=== PATIENT | female | born 1980 | race Caucasian/White ===

== ENCOUNTER → 2016-08-09 | Outpatient (CLI) | payer OTHER ==
[2013-03-27 06:47] VITALS: BP 125/71
--- NOTE | 2016-08-09 16:19 | RAD ---
HISTORY: Subacute neck pain and right arm radiculopathy Study: Three views cervical spine Comparison: None Findings: AP and lateral radiographs of the cervical spine demonstrate normal alignment from the craniocervica l junction to the level of T1. No prevertebral soft tissue swelling can be identified. The odontoi d appears intact. The lateral masses of C1 align with the body of C2. There is mild discogenic dege nerative disease at C6-7. IMPRESSION: Mild discogenic degenerative disease. Reported By:
== END ==
LOC: RAD 15:14
PROVIDERS: ATTEND Nurse Practitioner Family
DX: M50.323 Other cervical disc degeneration at C6-C7 level (principal)
CPT/HCPCS: 72040

== ENCOUNTER → 2016-08-15 | Outpatient (CLI) | payer OTHER ==
[2013-03-27 06:47] VITALS: BP 125/71
--- NOTE | 2016-08-16 10:24 | MRI ---
MRI cervical spine without contrast Indication: Neck pain with right arm radiculopathy Technique: Multiplanar, multi sequence imaging of the spine without IV contrast administration. Findings: Artifact from patient's dental hardware limits visualization of the craniocervical junctio n, posterior fossa and superior aspect of C2. Within the visualized cervical spine there is no spond ylolisthesis. There is moderate spondylosis and disk desiccation at C5-6. There is a large right par acentral disc extrusion at C5-6. The visualized cervical spine demonstrates no abnormal signal, thic kening or atrophy. There is no prevertebral or paraspinal soft tissue swelling or fluid collection. At C2-3 unremarkable At C3-4 mild disc osteophyte complex causes very mild spinal canal stenosis without neural foraminal narrowing. At C4-5 mild disc osteophyte complex causes very mild spinal canal without neural foraminal stenosis . At C5-6 large right paracentral disc extrusion and disc osteophyte complex causes mild to moderate s nas canal stenosis with severe right lateral recess compression . There is moderate right and no s ignificant left-sided neural foraminal stenosis at this level. At C6-7 unremarkable At C7-T1 unremarkable. Impression: 1. Large right paracentral disc extrusion at C5-6 causes mild spinal canal stenosis and moderate rig ht neural foraminal stenosis. There is severe compression of the right lateral recess which is likel y source of patient's right-sided radicular symptoms. 2. Refer to above for level by level description of discogenic 3 change, facet arthropathy and assoc iated spinal canal and neural foraminal stenosis. Reported By:
== END ==
LOC: RAD 14:08
PROVIDERS: ATTEND Internal Medicine
DX: R20.2 Paresthesia of skin (principal); M62.81 Muscle weakness (generalized); M54.5 Low back pain; M62.838 Other muscle spasm; M50.322 Other cervical disc degeneration at C5-C6 level
CPT/HCPCS: 72141

== ENCOUNTER 2016-09-06 09:09 | Inpatient (IN) | payer OTHER ==
[2016-09-06] MEDS ORDERED: NS 1000 ML 1,000 ML ONE ×2 (09:13→09:24)
[2016-09-06] MEDS ORDERED: NS 1000 ML 1,000 ML IV ONE (09:24)
[2016-09-06] MEDS ORDERED: DEMEROL INJ IVP ONE (09:28)
[2016-09-06] MEDS ORDERED: ZOFRAN INJ 4 MG VIAL IVP ONE (09:28)
[2016-09-06] MEDS ORDERED: PEPCID 20 MG IV PREMIX* 20 MG/50 ML BAG IV ONE ×2 (09:41→09:46)
[2016-09-06 09:44] VITALS: BMI 22.3
[2016-09-06] MEDS ORDERED: DEMEROL INJ ONE (09:52)
[2016-09-06] MEDS ORDERED: ZOFRAN INJ 4 MG VIAL ONE (09:52)
[2016-09-06 09:53] LABS: ABG BASE EXCESS -12.7 mmol/L (-2.0-2.0)
[2016-09-06 09:58] LABS: BASOPHILS % (AUTO) 0.3 % (0.2-1.0); EOSINOPHILS # (AUTO) 0.1 x10^3/uL (0.0-0.2); EOSINOPHILS % (AUTO) 0.4 % (0.9-2.9); HEMATOCRIT 45.7 % (36.0-47.0); HEMOGLOBIN 15.1 g/dL (12.0-16.0); LYMPHOCYTES % (AUTO) 7.5 % (21.0-51.0); MEAN CORPUSCULAR HEMOGLOBIN 28.5 pg (27.0-34.0); MEAN CORPUSCULAR HGB CONC 33.1 g/dL (33.0-35.0); MEAN CORPUSCULAR VOLUME 86.2 fL (80.0-100.0); MEAN PLATELET VOLUME 9.2 fL (7.4-11.0); MONOCYTES # (AUTO) 0.9 x10^3/uL (0.3-0.8); NEUTROPHILS # (AUTO) 11.1 x10^3/uL (2.2-4.8); NEUTROPHILS % (AUTO) 84.8 % (42.0-75.0); PLATELET COUNT 155 X10^3/uL (150.0-450.0); RED CELL DISTRIBUTION WIDTH 13.1 % (11.6-16.5)
[2016-09-06 10:14] LABS: ALANINE AMINOTRANSFERASE 25 Units/L (12-78); ALBUMIN 2.7 g/dL (3.4-5.0); ALKALINE PHOSPHATASE 47 Units/L (46-116); AMYLASE 8 Units/L (25-115); ASPARTATE AMINO TRANSFERASE 9 Units/L (15-37); BLOOD UREA NITROGEN 22 mg/dL (7-18); CALCIUM 7.2 mg/dL (8.5-10.1); COR CA(FOR HYPOALB) 8.2 mg/dL (8.5-10.1); COR NA(FOR HYPERGLY) 156 mmol/L (136-145); CREATININE 1.19 mg/dL (0.55-1.02); GLUCOSE 136 mg/dL (65-99); LIPASE 54 Units/L (73-393); TOTAL PROTEIN 5.5 g/dL (6.4-8.2); eGFR BLACK RACES > 60 (>60); eGFR NON BLACK RACES 55 (>60)
[2016-09-06 10:16] LABS: SODIUM 155 mmol/L (136-145)
[2016-09-06 10:17] LABS: CARBON DIOXIDE 13.7 mmol/L (21-32); CHLORIDE 124 mmol/L (98-107)
[2016-09-06] MEDS ORDERED: BUTT CREAM (COMPOUND) TOP PRN (10:25)
[2016-09-06] MEDS ORDERED: LOMOTIL ONE (10:54)
[2016-09-06] MEDS ORDERED: POTASSIUM CHLORIDE IV SCH ×2 (11:00)
[2016-09-06] MEDS ORDERED: NS 1000 ML 1,000 ML IV SCH (11:00)
[2016-09-06] MEDS ORDERED: LR IV SCH ×2 (11:00)
--- NOTE | 2016-09-06 11:19 | DR.DIARFEM ---
HPI - Time seen Time seen: 09:55 - PCP Primary Care Physician: [email or web address] - HPI Comment HPI Comment: PATIENT HAVING N/V/D FOR PAST 5 DAYS THAT IS WORSE TODAY. SHE IS DIZZY, WEAK AND FEEL SHE COULD PASS OUT. BP LOW IN ED. RELATIVE WITH DIARRHEA DISEASE RECENT. NOT HOLDING DOWN FLUID. - Complaint Chief Complaint Doctor Comments: ABDOMINAL PAIN, N/V/D TIMES 5 DAYS. HYPOTENSION NOTED IN ED. Chief Complaint:: patient stated she has been having vomiting and diarrhea for 5 days - Nurses notes reviewed Nurses Notes Review: Yes - Source History Provided: Patient - Mode of Arrival Mode of Arrival: Ambulatory - Timing Onset of Chief Complaint: 09/01/16 Came on: Suddenly - Duration Duration: Constant Duration: Days - Quality Quality of Diarrhea: Watery - Context Onset: Spontaneous Recent: Contact Exposure. denies: Travel, Antibiotic use, Laxative use, Possible spoiled food, Shellfish Diarrhea history of: None - Associated signs and symptoms Associated Signs and Symptoms: Nausea, Diarrhea, Vomiting, Abdominal Pain. denies: Dysuria (DECREASE URINE OUTPUT), Fever - If abdominal pain present Quality: Cramping Location of Abdominal Pain: Diffuse PMH - PMH Past Medical History: No Past Surgical History: Yes Surgical History: , Tonsillectomy - Family History History of Family Medical Conditions: No - Social History Does patient currently use any type of tobacco product: No Have you used tobacco products in the last 12 months: No Type of Tobacco Use: None Does any household member use tobacco: No Alcohol Use: None Do you use any recreational Drugs:: No Lives With: Family Lives Where: Home - infectious screening In the last 2 months have you had wt loss of >10#?: NO Have you had fever, night sweats or hemotysis?: No Have you traveled outside the country in the last 6 months?: No Isolation: Standard ROS - Review of Systems Constitutional: Weakness, Fatigue. negative: Chills, Diaphoresis, Fever, Loss of Appetite Eyes: No Symptoms Reported. negative: Eye Pain, Discharge ENTM: negative: Ear Pain, Nose Discharge, Nose Congestion, Throat Pain Respiratoy: negative: Productive Cough, Non-Productive Cough, Short of Breath, Wheezing, Hemoptysis Cardiovascular: Palpitations. negative: Chest Pain, Edema, Syncope Gastrointestinal/Abdominal: Abdominal Pain, Diarrhea, Nausea, Vomiting. negative: Constipation Genitourinary: Other (DECRESASE URINE OUTPUT.). negative: Dysuria, Frequency, Hematuria Neurological: Weakness, Dizziness. negative: Headache Musculoskeletal: Muscle Pain Integumentary: Dryness Hematologic/Lymphatic: No Symptoms Reported Endocrine: No Symptoms Reported All Other Systems: Reviewed and Negative PE - Vital Signs Vitals: Temperature 98.6 F Pulse Rate 118 Respiratory Rate 18 Blood Pressure [Right Arm] 117/69 Blood Pressure 114/74 O2 Sat by Pulse Oximetry 100 - Constitutional Limitations: No Limitations General Appearance: Alert - Head Head Exam: Normal Inspection - Eyes Eye exam: Normal Appearance - ENT ENT Exam: Normal External Ear Exam, Mucous Membranes Dry - Neck Neck Exam: Trachea Midline - Chest Chest Inspection: Symmetric Chest Wall Rise - Respiratory Respiratory Exam: Normal Lung Sounds Bilat Respiratory Exam: Bilateral Clear to Auscultation - Cardiovascular Cardiovascular Exam: Normal Rhythm, Tachycardia, Normal Heart Sounds - Abdominal Exam Abdominal Exam: Normal Bowel Sounds, Soft, Tenderness Abdominal Tenderness: Diffuse, Moderate - Rectal Stool Characteristics: Liquid (WATERY), Brown - Genitourinary External Exam: Female: Deferred : Speculum Exam (Female): Deferred : Bimanual Exam (female): Deferred - Extremeties Extremities Exam: Normal Inspection - Back Back Exam: Normal Inspection - Neurologic Neurological Exam: Alert, Oriented X3 - Psychiatric Psychiatric Exam: Normal Affect, Normal Mood - Skin Skin Exam: Dry MDM - Additional Information Additional Information Obtained From: Family - Differential Diagnosis Differential Diagnosis: Diarrhea Bacterial, Diarrhea Viral, Diverticular disease , Gastroenteritis, Other (comments) (GASTROENTERITIS) Course - Treatment Treatment: SEE ORDERS. - Consultation Consultation Comments: DISCUSS PATIENT WITH DR. FARRIS. HE WILL ADMIT PATIENT. - Education/Counseling Education/Counseling: Patient, Family, Education Educated On: Treatment, Diagnosis, Needs for Follow Up ROR - Labs Reviewed Laboratory Results Reviewed?: Yes Result Diagrams: 09/08/16 05:24 09/08/16 05:24 Laboratory: 09/06/16 09:26 Stool - Final WBC 13.0 X10^3/uL (3.6-10.0) H 09/06/16 09:50 RBC 5.30 X10^6/uL (3.5-5.4) 09/06/16 09:50 Hgb 15.1 g/dL (12.0-16.0) 09/06/16 09:50 Hct 45.7 % (36.0-47.0) 09/06/16 09:50 MCV 86.2 fL (80.0-100.0) 09/06/16 09:50 MCH 28.5 pg (27.0-34.0) 09/06/16 09:50 MCHC 33.1 g/dL (33.0-35.0) 09/06/16 09:50 RDW 13.1 % (11.6-16.5) 09/06/16 09:50 Plt Count 155 X10^3/uL (150.0-450.0) 09/06/16 09:50 MPV 9.2 fL (7.4-11.0) 09/06/16 09:50 Neut % 84.8 % (42.0-75.0) H 09/06/16 09:50 Lymph % 7.5 % (21.0-51.0) L 09/06/16 09:50 Tyrrell % 7.0 % (0.0-13.0) 09/06/16 09:50 Eos % 0.4 % (0.9-2.9) L 09/06/16 09:50 Baso % 0.3 % (0.2-1.0) 09/06/16 09:50 Neut # 11.1 x10^3/uL (2.2-4.8) H 09/06/16 09:50 Lymph # 1.0 X10^3/uL (1.3-2.9) L 09/06/16 09:50 Tyrrell # 0.9 x10^3/uL (0.3-0.8) H 09/06/16 09:50 Eos # 0.1 x10^3/uL (0.0-0.2) 09/06/16 09:50 Baso # 0.0 X10^3/uL (0.0-0.1) 09/06/16 09:50 Absolute Nucleated RBC 0.1 /100WBC 09/06/16 09:50 INR Target Range - 09/06/16 09:50 INR 1.27 (0.8-1.3) 09/06/16 09:50 PTT 24.8 SECONDS (22.9-36.5) 09/06/16 09:50 PTT Comment - 09/06/16 09:50 Sample Site Rba 09/06/16 09:51 ABG pH 7.260 (7.35-7.45) L 09/06/16 09:51 ABG pCO2 29.0 mmHg (35.0-45.0) L 09/06/16 09:51 ABG pO2 126.0 mmHg (80.0-100.0) H 09/06/16 09:51 ABG HCO3 13.0 mmol/L (22-26) L* 09/06/16 09:51 ABG O2 Saturation 98.0 % (90-100) 09/06/16 09:51 ABG Base Excess -12.7 mmol/L (-2.0-2.0) L 09/06/16 09:51 James Test Na 09/06/16 09:51 A-a Gradient -13.0 mmHg 09/06/16 09:51 FiO2 21.000 09/06/16 09:51 Blood Gas Comments Merna well cs 09/06/16 09:51 Sodium 155 mmol/L (136-145) H* 09/06/16 09:50 Corrected Sodium 156 mmol/L (136-145) H 09/06/16 09:50 Potassium 2.9 mmol/L (3.5-5.1) L* 09/06/16 09:50 Chloride 124 mmol/L (98-107) H* 09/06/16 09:50 Carbon Dioxide 13.7 mmol/L (21-32) L* 09/06/16 09:50 BUN 22 mg/dL (7-18) H 09/06/16 09:50 Creatinine 1.19 mg/dL (0.55-1.02) H 09/06/16 09:50 Est GFR (MDRD) Af Amer > 60 (>60) 09/06/16 09:50 Est GFR (MDRD) Non-Af 55 (>60) L 09/06/16 09:50 Glucose 136 mg/dL (65-99) H 09/06/16 09:50 Calcium 7.2 mg/dL (8.5-10.1) L 09/06/16 09:50 Corrected Calcium 8.2 mg/dL (8.5-10.1) L 09/06/16 09:50 Total Bilirubin 0.20 mg/dL (0.2-1.0) 09/06/16 09:50 AST 9 Units/L (15-37) L 09/06/16 09:50 ALT 25 Units/L (12-78) 09/06/16 09:50 Alkaline Phosphatase 47 Units/L (46-116) 09/06/16 09:50 Total Protein 5.5 g/dL (6.4-8.2) L 09/06/16 09:50 Albumin 2.7 g/dL (3.4-5.0) L 09/06/16 09:50 Globulin 2.8 g/dL (2.5-4.5) 09/06/16 09:50 Albumin/Globulin Ratio 1.0 Ratio (1.1-2.1) L 09/06/16 09:50 Amylase 8 Units/L (25-115) L 09/06/16 09:50 Lipase 54 Units/L (73-393) L 09/06/16 09:50 Stool Description 60g brwon liquid 09/06/16 09:26 Stl Occult Blood (IFOB) Negative (NEGATIVE) 09/06/16 09:26 Stool for White Cells No wbc's seen (None) 09/06/16 09:26 Stl C. diff Tox B Gene Negative (NEGATIVE) 09/06/16 09:26 Stl C. diff [id number] Negative (NEGATIVE) 09/06/16 09:26 - XRAY XRAY Interpreted by: Radiologist XRAY Findings: REPORT DISCUSS WITH PATIENT. - Diagnosis Discharge Problem: Dehydration, Gastroenteritis, Hypokalemia Hypotension Qualifiers: Hypotension type: unspecified hypotension type Qualified Code(s): I95.9 - Hypotension, unspecified - Discharge Plan Disposition: 01 HOME, SELF-CARE Condition: Stable - Follow ups/Referrals - Instructions
[2016-09-06 11:28] LABS: CRYPTOSPORIDIUM PARVUM ANTIGEN NEGATIVE (NEGATIVE); GIARDIA LAMBLIA ANTIGEN NEGATIVE (NEGATIVE)
--- NOTE | 2016-09-06 11:39 | CT ---
CT abdomen and pelvis without contrast Indication: Abdominal pain with nausea vomiting and diarrhea Comparison: none available Technique: Multiple axial images of the abdomen and pelvis were obtained from the lung bases to the pubic symph ysis without the administration of IV contrast. Coronal and sagittal images were also provided. Radiation dose reduction techniques were performed utilizing adjustment for MA/kVP based on patient body size. Findings: The visualized portions of the lung bases are unremarkable. The bony structures are grossly intact. Given the limitations of lack of IV contrast administration the liver, gallbladder, spleen, pancreas , and adrenal glands are unremarkable in their CT appearance. There are multiple punctate stones are noted within both kidneys, no renal mass or evidence of hydro nephrosis. There is diffuse fluid distention of the stomach, small bowel, colon and rectum. There is no decompr ession of the bowel. No free fluid or bowel wall thickening. The appendix is normal. Uterus demonstr ates an IUD in expected position within a retroflexed uterus. Abdominal aorta is normal in caliber. There is a small fat containing periumbilical hernia. Review of bone windows demonstrates no acute o sseous abnormality. Impression: 1.Fluid distension of the stomach, small bowel, colon and rectum consistent with either an acute gas troenterocolitis or generalized adynamic ileus. No evidence of obstruction. 2. Multiple punctate bilateral nonobstructing nephrolithiasis. 3. Incidental findings as described above. Reported By:
[2016-09-06] MEDS ORDERED: BENTYL I.M. INJ 10 MG IM PRN (11:50)
[2016-09-06] MEDS: PHENERGAN INJ 25 MG IV PRN ×2 (13:30→19:37)
[2016-09-06] MEDS: LOMOTIL PO PRN ×2 (15:40→23:03)
[2016-09-06 15:46] LABS: BLOOD UREA NITROGEN 17 mg/dL (7-18); CALCIUM 8.3 mg/dL (8.5-10.1); CARBON DIOXIDE 16.2 mmol/L (21-32); COR NA(FOR HYPERGLY) 153 mmol/L (136-145); CREATININE 1.04 mg/dL (0.55-1.02); GLUCOSE 116 mg/dL (65-99); eGFR BLACK RACES > 60 (>60); eGFR NON BLACK RACES > 60 (>60)
[2016-09-06 15:48] LABS: SODIUM 153 mmol/L (136-145)
[2016-09-06 15:49] LABS: CHLORIDE 121 mmol/L (98-107)
[2016-09-06] MEDS ORDERED: RESTORIL CAP 15 MG PO PRN (19:12)
[2016-09-06 19:25] LABS: BLOOD UREA NITROGEN 12 mg/dL (7-18); CALCIUM 8.5 mg/dL (8.5-10.1); COR NA(FOR HYPERGLY) 150 mmol/L (136-145); CREATININE 1.04 mg/dL (0.55-1.02); GLUCOSE 118 mg/dL (65-99); eGFR BLACK RACES > 60 (>60); eGFR NON BLACK RACES > 60 (>60)
[2016-09-06 19:28] LABS: CHLORIDE 118 mmol/L (98-107); SODIUM 150 mmol/L (136-145)
[2016-09-06 19:29] LABS: BILIRUBIN,URINE NEGATIVE (NEGATIVE); BLOOD/HEMOGLOBIN,URINE 2+ (NEGATIVE); GLUCOSE, URINE NEGATIVE (NEGATIVE); KETONES,URINE NEGATIVE (NEGATIVE); LEUKOCYTE ESTERASE ,URINE NEGATIVE (NEGATIVE); NITRITES,URINE NEGATIVE (NEGATIVE); PROTEIN,URINE 1+ (NEGATIVE); UROBILINOGEN,URINE NORMAL (NORMAL)
[2016-09-06] MEDS: D5 1/2 NS 1000 ML 1,000 ML IV SCH (19:36)
[2016-09-06] MEDS: DEMEROL INJ IVP PRN (19:37)
[2016-09-06 19:38] LABS: APPEARANCE,URINE CLEAR (CLEAR); BACTERIA,URINE TRACE /HPF (NEGATIVE); COLOR,URINE YELLOW (YELLOW); RBC,URINE 0-3 /HPF (NEGATIVE); SQUAMOUS EPITHELIAL CELL,UR FEW /HPF (NEGATIVE)
[2016-09-06 22:52] LABS: BLOOD UREA NITROGEN 10 mg/dL (7-18); CALCIUM 8.6 mg/dL (8.5-10.1); CREATININE 0.98 mg/dL (0.55-1.02); GLUCOSE 109 mg/dL (65-99); eGFR BLACK RACES > 60 (>60); eGFR NON BLACK RACES > 60 (>60)
[2016-09-06 23:01] LABS: CHLORIDE 117 mmol/L (98-107); SODIUM 152 mmol/L (136-145)
[2016-09-07] MEDS: AMBIEN PO PRN ×2 (02:01→21:02)
[2016-09-07] MEDS: D5 1/2 NS 1000 ML 1,000 ML IV SCH ×2 (03:39→06:17)
[2016-09-07] MEDS: ZOFRAN INJ 4 MG VIAL IVP PRN ×2 (07:41→17:40)
[2016-09-07 08:12] LABS: BASOPHILS % (AUTO) 0.4 % (0.2-1.0); EOSINOPHILS # (AUTO) 0.1 x10^3/uL (0.0-0.2); EOSINOPHILS % (AUTO) 0.6 % (0.9-2.9); HEMATOCRIT 41.4 % (36.0-47.0); HEMOGLOBIN 13.8 g/dL (12.0-16.0); LYMPHOCYTES # (AUTO) 1.6 X10^3/uL (1.3-2.9); LYMPHOCYTES % (AUTO) 13.8 % (21.0-51.0); MEAN CORPUSCULAR HEMOGLOBIN 28.6 pg (27.0-34.0); MEAN CORPUSCULAR HGB CONC 33.2 g/dL (33.0-35.0); MEAN CORPUSCULAR VOLUME 86.1 fL (80.0-100.0); MEAN PLATELET VOLUME 8.9 fL (7.4-11.0); MONOCYTES # (AUTO) 1.1 x10^3/uL (0.3-0.8); MONOCYTES % (AUTO) 9.5 % (0.0-13.0); NEUTROPHILS % (AUTO) 75.7 % (42.0-75.0); PLATELET COUNT 162 X10^3/uL (150.0-450.0); RED BLOOD COUNT 4.81 X10^6/uL (3.5-5.4); RED CELL DISTRIBUTION WIDTH 13.1 % (11.6-16.5); WHITE BLOOD COUNT 11.8 X10^3/uL (3.6-10.0)
[2016-09-07 08:21] LABS: ALANINE AMINOTRANSFERASE 34 Units/L (12-78); ALKALINE PHOSPHATASE 45 Units/L (46-116); ASPARTATE AMINO TRANSFERASE 21 Units/L (15-37); BLOOD UREA NITROGEN 8 mg/dL (7-18); CALCIUM 8.2 mg/dL (8.5-10.1); CARBON DIOXIDE 21.1 mmol/L (21-32); CHLORIDE 110 mmol/L (98-107); CREATININE 0.91 mg/dL (0.55-1.02); GLUCOSE 68 mg/dL (65-99); SODIUM 143 mmol/L (136-145); TOTAL PROTEIN 5.8 g/dL (6.4-8.2); eGFR BLACK RACES > 60 (>60); eGFR NON BLACK RACES > 60 (>60)
--- NOTE | 2016-09-07 09:19 | RAD ---
HISTORY: Wheezing, cough Study: Single view chest Comparison: None Findings: The lungs are clear without consolidation, effusion or pneumothorax. The cardiac and mediastinal co ntours are within normal limits. The soft tissues are unremarkable. IMPRESSION: 1. No acute cardiopulmonary abnormality. Reported By:
[2016-09-07] MEDS: LIBRAX PO PRN ×2 (10:06→21:42)
[2016-09-07] MEDS: DEMEROL INJ IVP PRN ×2 (10:07→17:40)
[2016-09-07] MEDS: PROTONIX INJ 40 MG VIAL IVP SCH (10:07)
[2016-09-07] MEDS: CIPRO IV 400 MG PREMIX* 400 MG/200 ML IV.SOLN. IV SCH ×2 (10:08→21:01)
[2016-09-07] MEDS ORDERED: D5 1/2 NS 1000 ML 1,000 ML IV SCH (11:00)
[2016-09-07] MEDS ORDERED: PHARMACY CONSULT - TPN XX SCH (11:00)
[2016-09-07] MEDS: K-LYTE EFFERVESCENT PO SCH ×2 (11:50→12:27)
[2016-09-07] MEDS: PROCALAMINE 3 % 1,000 ML IV SCH (11:50)
--- NOTE | 2016-09-07 12:57 | DR.H&P ---
H&P - History & Physical for Day of: H&P Date: 09/06/16 - Chief Complaint Chief Complaint: NVD - Allergies Allergies/Adverse Reactions: Allergies Allergy/AdvReac Type Severity Reaction Status Date / Time No Known Drug Allergy Allergy Verified 03/23/13 20:51 - History of Present Illness History of Present Illness: PATIENT IS A 35-YEAR-OLD WHITE FEMALE WHO WAS ADMITTED FROM THE EMERGENCY ROOM WITH SEVERE DEHYDRATION AND HYPOKALEMIA AFTER POSSIBLE VIRAL GASTROENTERITIS. pATIENT HAD A ct SCAN OF THE ABDOMEN AND PELVIS ON ADMISSION WHICH CONFIRMED DIAGNOSIS. pATIENT ADMITTED FOR AGGRESSIVE iv HYDRATION, ANTIEMETICS FOR NAUSEA AND VOMITING AND STOOL STUDIES. pLANNED REPEAT A.M. LABS - Past Medical History Past Medical History: Arthritis - Past Surgical History Surgical History: , Tonsillectomy, Other - Family History Family Medical History: Diabetes Mellitus, Cancer, [place], Coronary Artery Disease, Hypertension - Social History Does patient currently use any type of tobacco product: No Have you used tobacco products in the last 12 months: No Type of Tobacco Use: None Does any household member use tobacco: No Alcohol Use: None Drug Use: None - Review of Systems Constitutional: Chills, Weakness, Malaise Eyes: No Symptoms Reported ENT: No Symptoms Reported Respiratory: SOB with Excertion Cardiovascular: Light Headedness Gastrointestinal: Nausea, Vomiting, Abdominal Pain, Diarrhea Genitourinary: No Symptoms Reported Musculoskeletal: Back Pain, Leg Pain, Neck Pain Skin: No Symptoms Reported Neurological: Weakness - Physical Exam Vital Signs: Temperature 98.1 F Pulse Rate [Right Brachial] 83 Respiratory Rate 19 Blood Pressure [Right Arm] 121/74 O2 Sat by Pulse Oximetry 100 Oriented: Normal Eyes: Normal Ear: Normal Nose: Normal Throat: Dry Respiratory: RLL Diminished Cardiovascular: Bradycardia : Normal Auscultation: Bowel Sounds: Increased Tenderness: Diffuse Skin: Decreased Turgur Musculoskeletal: Back:Thoracic, Back:Lumbar, Tender (C SPINE) Psychiatric: Anxiety Speech Pattern: Clear, Appropriate - Assessment/Plan (1) Dehydration Status: Acute Plan: ADMIT, IV HYDRATION. STOOL STUDIES, REPEAT AM LABS (2) Gastroenteritis Status: Acute (3) Hypotension Qualifiers: Hypotension type: H Trimester: T Status: Acute (4) Herniation of intervertebral disc at C5-C6 level Status: Chronic
--- NOTE | 2016-09-07 13:00 | PCM.PROG ---
Progress Note - Progress Note for Day of Date: 09/07/16 - Subjective Subjective: patient is a 35-year-old white female who was admitted one day ago with viral gastroenteritis and severe dehydration. Patient has slight improved and vomiting and diarrhea however patient has had limited by mouth intake. Patient's potassium this morning continued to be low at 2.8. Plan to follow potassium replacement protocol. Repeat a.m. labs. Start on Cipro 400 mg IV every 12, stool culture pending, flu swab and chest x-ray due to diminished breath sounds. - Past Medical Family Social History Past Med/Fam/Surg Hx: No changes since H&P Allergies: Allergies No Known Drug Allergy Allergy (Verified 03/23/13 20:51) - Review of Systems ROS: No change since H&P - Vital Signs and I&O's Vital Signs: Temperature 98.1 F Pulse Rate [Right Brachial] 83 Respiratory Rate 19 Blood Pressure [Right Arm] 121/74 O2 Sat by Pulse Oximetry 100 Intake and Output: Intake & Output 09/05/16 09/06/16 09/07/16 09/08/16 11:59 11:59 11:59 11:59 Intake Total 4060 Balance 4060 - Physical Exam Oriented: Normal Eyes: Normal Ear: Normal Nose: Normal Throat: Dry Respiratory: Diminished Cardiovascular: Normal : Normal Auscultation: Bowel Sounds: Increased Tenderness: Diffuse Skin: Decreased Turgur Musculoskeletal: Back:Thoracic, Back:Lumbar, Tender (C SPINE) Psychiatric: Anxiety Speech Pattern: Clear, Appropriate - Laboratory and Diagnostics Result Diagrams: 09/07/16 08:00 09/07/16 08:00 Labs: Laboratory WBC 11.8 X10^3/uL (3.6-10.0) H 09/07/16 08:00 RBC 4.81 X10^6/uL (3.5-5.4) 09/07/16 08:00 Hgb 13.8 g/dL (12.0-16.0) 09/07/16 08:00 Hct 41.4 % (36.0-47.0) 09/07/16 08:00 MCV 86.1 fL (80.0-100.0) 09/07/16 08:00 MCH 28.6 pg (27.0-34.0) 09/07/16 08:00 MCHC 33.2 g/dL (33.0-35.0) 09/07/16 08:00 RDW 13.1 % (11.6-16.5) 09/07/16 08:00 Plt Count 162 X10^3/uL (150.0-450.0) 09/07/16 08:00 MPV 8.9 fL (7.4-11.0) 09/07/16 08:00 Neut % 75.7 % (42.0-75.0) H 09/07/16 08:00 Lymph % 13.8 % (21.0-51.0) L 09/07/16 08:00 Rogers % 9.5 % (0.0-13.0) 09/07/16 08:00 Eos % 0.6 % (0.9-2.9) L 09/07/16 08:00 Baso % 0.4 % (0.2-1.0) 09/07/16 08:00 Neut # 9.0 x10^3/uL (2.2-4.8) H 09/07/16 08:00 Lymph # 1.6 X10^3/uL (1.3-2.9) 09/07/16 08:00 Rogers # 1.1 x10^3/uL (0.3-0.8) H 09/07/16 08:00 Eos # 0.1 x10^3/uL (0.0-0.2) 09/07/16 08:00 Baso # 0.0 X10^3/uL (0.0-0.1) 09/07/16 08:00 Absolute Nucleated RBC 0.0 /100WBC 09/07/16 08:00 INR Target Range - 09/06/16 09:50 INR 1.27 (0.8-1.3) 09/06/16 09:50 PTT 24.8 SECONDS (22.9-36.5) 09/06/16 09:50 PTT Comment - 09/06/16 09:50 Sample Site Rba 09/06/16 09:51 ABG pH 7.260 (7.35-7.45) L 09/06/16 09:51 ABG pCO2 29.0 mmHg (35.0-45.0) L 09/06/16 09:51 ABG pO2 126.0 mmHg (80.0-100.0) H 09/06/16 09:51 ABG HCO3 13.0 mmol/L (22-26) L* 09/06/16 09:51 ABG O2 Saturation 98.0 % (90-100) 09/06/16 09:51 ABG Base Excess -12.7 mmol/L (-2.0-2.0) L 09/06/16 09:51 James Test Na 09/06/16 09:51 A-a Gradient -13.0 mmHg 09/06/16 09:51 FiO2 21.000 09/06/16 09:51 Blood Gas Comments Merna well cs 09/06/16 09:51 Sodium 143 mmol/L (136-145) 09/07/16 08:00 Corrected Sodium TNP 09/07/16 08:00 Potassium 2.8 mmol/L (3.5-5.1) L* 09/07/16 08:00 Chloride 110 mmol/L (98-107) H 09/07/16 08:00 Carbon Dioxide 21.1 mmol/L (21-32) 09/07/16 08:00 BUN 8 mg/dL (7-18) 09/07/16 08:00 Creatinine 0.91 mg/dL (0.55-1.02) 09/07/16 08:00 Est GFR (MDRD) Af Amer > 60 (>60) 09/07/16 08:00 Est GFR (MDRD) Non-Af > 60 (>60) 09/07/16 08:00 Glucose 68 mg/dL (65-99) 09/07/16 08:00 Lactic Acid 3.8 mmol/L (0.4-2.0) H 09/06/16 15:20 Calcium 8.2 mg/dL (8.5-10.1) L 09/07/16 08:00 Corrected Calcium 9.0 mg/dL (8.5-10.1) 09/07/16 08:00 Total Bilirubin 0.40 mg/dL (0.2-1.0) 09/07/16 08:00 AST 21 Units/L (15-37) 09/07/16 08:00 ALT 34 Units/L (12-78) 09/07/16 08:00 Alkaline Phosphatase 45 Units/L (46-116) L 09/07/16 08:00 Total Protein 5.8 g/dL (6.4-8.2) L 09/07/16 08:00 Albumin 3.0 g/dL (3.4-5.0) L 09/07/16 08:00 Globulin 2.8 g/dL (2.5-4.5) 09/07/16 08:00 Albumin/Globulin Ratio 1.1 Ratio (1.1-2.1) 09/07/16 08:00 Amylase 8 Units/L (25-115) L 09/06/16 09:50 Lipase 54 Units/L (73-393) L 09/06/16 09:50 Specimen Type Clean catch urine 09/06/16 19:19 Urine Color Yellow (YELLOW) 09/06/16 19:19 Urine Appearance Clear (CLEAR) 09/06/16 19:19 Urine pH 5.0 (5.0 - 8.0) 09/06/16 19:19 Ur Specific [facility] 1.025 (1.000-1.030) 09/06/16 19:19 Urine Protein 1+ (NEGATIVE) 09/06/16 19:19 Urine Glucose (UA) Negative (NEGATIVE) 09/06/16 19:19 Urine Ketones Negative (NEGATIVE) 09/06/16 19:19 Urine Occult Blood 2+ (NEGATIVE) 09/06/16 19:19 Urine Nitrite Negative (NEGATIVE) 09/06/16 19:19 Urine Bilirubin Negative (NEGATIVE) 09/06/16 19:19 Urine Urobilinogen Normal (NORMAL) 09/06/16 19:19 Ur Leukocyte Esterase Negative (NEGATIVE) 09/06/16 19:19 Urine RBC 0-3 /HPF (NEGATIVE) 09/06/16 19:19 Urine WBC 0-1 /HPF (NEGATIVE) 09/06/16 19:19 Ur Squamous Epith Cells Few /HPF (NEGATIVE) 09/06/16 19:19 Urine Bacteria Trace /HPF (NEGATIVE) 09/06/16 19:19 Ur Culture Indicated? No/not indicated 09/06/16 19:19 Stool Description 60g brwon liquid 09/06/16 09:26 Stl Occult Blood (IFOB) Negative (NEGATIVE) 09/06/16 09:26 Stool for White Cells No wbc's seen (None) 09/06/16 09:26 Stl C. diff Tox B Gene Negative (NEGATIVE) 09/06/16 09:26 Stl C. diff [id number] Negative (NEGATIVE) 09/06/16 09:26 Cryptosporid parvum Ag Negative (NEGATIVE) 09/06/16 09:26 E. histolytica Antigen Negative (NEGATIVE) 09/06/16 09:26 Giardia lamblia Ag Negative (NEGATIVE) 09/06/16 09:26 Influenza A (H1N1) PCR Not detected (NOT DETECT) 09/07/16 09:00 Influenza Type A (PCR) Negative (NEGATIVE) 09/07/16 09:00 Influenza Type B (PCR) Negative (NEGATIVE) 09/07/16 09:00 - Plan (1) Dehydration Status: Acute Plan: IV HYDRATION, potassim replacement. STOOL STUDIES, REPEAT AM LABS (2) Gastroenteritis Status: Acute Plan: CIPRO 400MG IV Q 12, STOOL CULTURES PENDING. FLU SWAB, PPI, LIBRAX PO. CLEAR LIQUIDS, ADVANCE TO BLAND TOLERATED (3) Hypotension Status: Acute Qualifiers: Hypotension type: H Trimester: T Plan: stable, continue to monitor (4) Herniation of intervertebral disc at C5-C6 level Status: Chronic
[2016-09-07] MEDS: PHENERGAN INJ 25 MG IV PRN ×2 (14:33→21:02)
[2016-09-07] MEDS ORDERED: D5 1/2 NS + KCL 20 MEQ/L 1,000 ML IV SCH (15:00)
[2016-09-07] MEDS: D5 1/2 NS + KCL 20 MEQ/L 1,000 ML IV SCH (16:38)
[2016-09-08] MEDS: K-LYTE EFFERVESCENT PO SCH ×3 (00:49→23:17)
[2016-09-08] MEDS: PROCALAMINE 3 % 1,000 ML IV SCH ×4 (00:50→23:19)
[2016-09-08] MEDS: DEMEROL INJ IVP PRN ×3 (03:24→21:14)
[2016-09-08] MEDS: PHENERGAN INJ 25 MG IV PRN ×4 (03:25→23:48)
[2016-09-08] MEDS: D5 1/2 NS + KCL 20 MEQ/L 1,000 ML IV SCH ×3 (05:48→17:20)
[2016-09-08 06:29] LABS: BASOPHILS % (AUTO) 0.3 % (0.2-1.0); EOSINOPHILS # (AUTO) 0.2 x10^3/uL (0.0-0.2); EOSINOPHILS % (AUTO) 2.1 % (0.9-2.9); HEMATOCRIT 37.7 % (36.0-47.0); LYMPHOCYTES # (AUTO) 2.6 X10^3/uL (1.3-2.9); LYMPHOCYTES % (AUTO) 25.9 % (21.0-51.0); MEAN CORPUSCULAR HEMOGLOBIN 29.1 pg (27.0-34.0); MEAN CORPUSCULAR HGB CONC 34.6 g/dL (33.0-35.0); MEAN CORPUSCULAR VOLUME 84.3 fL (80.0-100.0); MEAN PLATELET VOLUME 9.4 fL (7.4-11.0); MONOCYTES # (AUTO) 0.9 x10^3/uL (0.3-0.8); MONOCYTES % (AUTO) 8.7 % (0.0-13.0); NEUTROPHILS # (AUTO) 6.2 x10^3/uL (2.2-4.8); PLATELET COUNT 146 X10^3/uL (150.0-450.0); RED BLOOD COUNT 4.47 X10^6/uL (3.5-5.4); WHITE BLOOD COUNT 9.9 X10^3/uL (3.6-10.0)
[2016-09-08 06:30] LABS: ALANINE AMINOTRANSFERASE 44 Units/L (12-78); ALBUMIN 2.4 g/dL (3.4-5.0); ALKALINE PHOSPHATASE 44 Units/L (46-116); ASPARTATE AMINO TRANSFERASE 20 Units/L (15-37); BLOOD UREA NITROGEN 10 mg/dL (7-18); CALCIUM 7.8 mg/dL (8.5-10.1); CARBON DIOXIDE 25.2 mmol/L (21-32); CHLORIDE 107 mmol/L (98-107); COR CA(FOR HYPOALB) 9.1 mg/dL (8.5-10.1); CREATININE 0.63 mg/dL (0.55-1.02); GLUCOSE 90 mg/dL (65-99); SODIUM 141 mmol/L (136-145); TOTAL PROTEIN 4.9 g/dL (6.4-8.2); eGFR BLACK RACES > 60 (>60); eGFR NON BLACK RACES > 60 (>60)
--- NOTE | 2016-09-08 06:54 | US ---
Limited abdominal ultrasound Indication: Food intolerance, nausea, vomiting, diarrhea. Comparison: None Technique: Sonographic images of the abdomen were obtained per protocol. Findings: There is no cholelithiasis, gallbladder distention, wall thickening, or pericholecystic fl uid. No biliary dilation is observed; the common duct measures 3 mm in diameter. The visualized live r, right kidney, and pancreas were unremarkable. Impression: Unremarkable right upper quadrant ultrasound. Reported By:
[2016-09-08] MEDS: LIBRAX PO PRN (07:45)
[2016-09-08] MEDS: PROTONIX INJ 40 MG VIAL IVP SCH (08:28)
[2016-09-08] MEDS: ZOFRAN INJ 4 MG VIAL IVP PRN (08:28)
[2016-09-08] MEDS: CIPRO IV 400 MG PREMIX* 400 MG/200 ML IV.SOLN. IV SCH ×2 (08:29→21:12)
[2016-09-08] MEDS: MYCELEX TROCHE MT SCH ×4 (08:29→21:12)
[2016-09-08] MEDS ORDERED: ZOFRAN INJ 4 MG VIAL 16 MG, ATIVAN INJ 2 MG VIAL 1 MG, DECADRON INJ 10 MG in NS 50 ML I... IV NR (10:00)
[2016-09-08 10:07] LABS: AMYLASE 19 Units/L (25-115); LIPASE 81 Units/L (73-393)
[2016-09-08] MEDS: REGLAN INJ 10 MG VIAL IVP SCH ×4 (10:39→21:13)
[2016-09-08] MEDS: PEPCID 20 MG IV PREMIX* 20 MG/50 ML BAG IV SCH ×2 (10:39→21:12)
[2016-09-08] MEDS: ZOFRAN INJ 4 MG VIAL 16 MG, ATIVAN INJ 2 MG VIAL 1 MG, DECADRON INJ 10 MG in NS 50 ML I... IV PRN ×2 (12:47→22:28)
--- NOTE | 2016-09-08 15:20 | PCM.PROG ---
Progress Note - Progress Note for Day of Date: 09/08/16 - Subjective Subjective: patient is a 35-year-old white female who was admitted one day ago with viral gastroenteritis and severe dehydration. Patient has slight improved and vomiting and diarrhea however patient has had limited by mouth intake. Patient's potassium this morning continued to be low at 3.1 Plan to follow potassium replacement protocol. Repeat a.m. labs. on Cipro 400 mg IV every 12 , REPEAT AM LABS - Past Medical Family Social History Past Med/Fam/Surg Hx: No changes since H&P Allergies: Allergies No Known Drug Allergy Allergy (Verified 03/23/13 20:51) - Review of Systems ROS: No change since H&P - Vital Signs and I&O's Vital Signs: Temperature 97.9 F Pulse Rate [Right Brachial] 113 Respiratory Rate 18 Blood Pressure [Right Arm] 128/64 O2 Sat by Pulse Oximetry 98 Intake and Output: Intake & Output 09/06/16 09/07/16 09/08/16 09/09/16 11:59 11:59 11:59 11:59 Intake Total 5070 3310 Balance 5070 3310 - Physical Exam Oriented: Normal Eyes: Normal Ear: Normal Nose: Normal Throat: Dry Respiratory: Diminished Cardiovascular: Normal : Normal Auscultation: Bowel Sounds: Increased Tenderness: Diffuse Skin: Decreased Turgur Musculoskeletal: Back:Thoracic, Back:Lumbar, Tender (C SPINE) Psychiatric: Anxiety Speech Pattern: Clear, Appropriate - Laboratory and Diagnostics Result Diagrams: 09/08/16 05:24 09/08/16 05:24 Labs: Laboratory WBC 9.9 X10^3/uL (3.6-10.0) 09/08/16 05:24 RBC 4.47 X10^6/uL (3.5-5.4) 09/08/16 05:24 Hgb 13.0 g/dL (12.0-16.0) 09/08/16 05:24 Hct 37.7 % (36.0-47.0) 09/08/16 05:24 MCV 84.3 fL (80.0-100.0) 09/08/16 05:24 MCH 29.1 pg (27.0-34.0) 09/08/16 05:24 MCHC 34.6 g/dL (33.0-35.0) 09/08/16 05:24 RDW 13.0 % (11.6-16.5) 09/08/16 05:24 Plt Count 146 X10^3/uL (150.0-450.0) L 09/08/16 05:24 MPV 9.4 fL (7.4-11.0) 09/08/16 05:24 Neut % 63.0 % (42.0-75.0) 09/08/16 05:24 Lymph % 25.9 % (21.0-51.0) 09/08/16 05:24 Person % 8.7 % (0.0-13.0) 09/08/16 05:24 Eos % 2.1 % (0.9-2.9) 09/08/16 05:24 Baso % 0.3 % (0.2-1.0) 09/08/16 05:24 Neut # 6.2 x10^3/uL (2.2-4.8) H 09/08/16 05:24 Lymph # 2.6 X10^3/uL (1.3-2.9) 09/08/16 05:24 Person # 0.9 x10^3/uL (0.3-0.8) H 09/08/16 05:24 Eos # 0.2 x10^3/uL (0.0-0.2) 09/08/16 05:24 Baso # 0.0 X10^3/uL (0.0-0.1) 09/08/16 05:24 Absolute Nucleated RBC 0.0 /100WBC 09/08/16 05:24 INR Target Range - 09/06/16 09:50 INR 1.27 (0.8-1.3) 09/06/16 09:50 PTT 24.8 SECONDS (22.9-36.5) 09/06/16 09:50 PTT Comment - 09/06/16 09:50 Sample Site Rba 09/06/16 09:51 ABG pH 7.260 (7.35-7.45) L 09/06/16 09:51 ABG pCO2 29.0 mmHg (35.0-45.0) L 09/06/16 09:51 ABG pO2 126.0 mmHg (80.0-100.0) H 09/06/16 09:51 ABG HCO3 13.0 mmol/L (22-26) L* 09/06/16 09:51 ABG O2 Saturation 98.0 % (90-100) 09/06/16 09:51 ABG Base Excess -12.7 mmol/L (-2.0-2.0) L 09/06/16 09:51 James Test Na 09/06/16 09:51 A-a Gradient -13.0 mmHg 09/06/16 09:51 FiO2 21.000 09/06/16 09:51 Blood Gas Comments Merna well cs 09/06/16 09:51 Sodium 141 mmol/L (136-145) 09/08/16 05:24 Corrected Sodium TNP 09/08/16 05:24 Potassium 3.1 mmol/L (3.5-5.1) L 09/08/16 05:24 Chloride 107 mmol/L (98-107) 09/08/16 05:24 Carbon Dioxide 25.2 mmol/L (21-32) 09/08/16 05:24 BUN 10 mg/dL (7-18) 09/08/16 05:24 Creatinine 0.63 mg/dL (0.55-1.02) 09/08/16 05:24 Est GFR (MDRD) Af Amer > 60 (>60) 09/08/16 05:24 Est GFR (MDRD) Non-Af > 60 (>60) 09/08/16 05:24 Glucose 90 mg/dL (65-99) 09/08/16 05:24 Lactic Acid 3.8 mmol/L (0.4-2.0) H 09/06/16 15:20 Calcium 7.8 mg/dL (8.5-10.1) L 09/08/16 05:24 Corrected Calcium 9.1 mg/dL (8.5-10.1) 09/08/16 05:24 Total Bilirubin 0.30 mg/dL (0.2-1.0) 09/08/16 05:24 AST 20 Units/L (15-37) 09/08/16 05:24 ALT 44 Units/L (12-78) 09/08/16 05:24 Alkaline Phosphatase 44 Units/L (46-116) L 09/08/16 05:24 Total Protein 4.9 g/dL (6.4-8.2) L 09/08/16 05:24 Albumin 2.4 g/dL (3.4-5.0) L 09/08/16 05:24 Globulin 2.5 g/dL (2.5-4.5) 09/08/16 05:24 Albumin/Globulin Ratio 1.0 Ratio (1.1-2.1) L 09/08/16 05:24 Amylase 19 Units/L (25-115) L 09/08/16 05:24 Lipase 81 Units/L (73-393) 09/08/16 05:24 Specimen Type Clean catch urine 09/06/16 19:19 Urine Color Yellow (YELLOW) 09/06/16 19:19 Urine Appearance Clear (CLEAR) 09/06/16 19:19 Urine pH 5.0 (5.0 - 8.0) 09/06/16 19:19 Ur Specific [place] 1.025 (1.000-1.030) 09/06/16 19:19 Urine Protein 1+ (NEGATIVE) 09/06/16 19:19 Urine Glucose (UA) Negative (NEGATIVE) 09/06/16 19:19 Urine Ketones Negative (NEGATIVE) 09/06/16 19:19 Urine Occult Blood 2+ (NEGATIVE) 09/06/16 19:19 Urine Nitrite Negative (NEGATIVE) 09/06/16 19:19 Urine Bilirubin Negative (NEGATIVE) 09/06/16 19:19 Urine Urobilinogen Normal (NORMAL) 09/06/16 19:19 Ur Leukocyte Esterase Negative (NEGATIVE) 09/06/16 19:19 Urine RBC 0-3 /HPF (NEGATIVE) 09/06/16 19:19 Urine WBC 0-1 /HPF (NEGATIVE) 09/06/16 19:19 Ur Squamous Epith Cells Few /HPF (NEGATIVE) 09/06/16 19:19 Urine Bacteria Trace /HPF (NEGATIVE) 09/06/16 19:19 Ur Culture Indicated? No/not indicated 09/06/16 19:19 Stool Description 60g brwon liquid 09/06/16 09:26 Stl Occult Blood (IFOB) Negative (NEGATIVE) 09/06/16 09:26 Stool for White Cells No wbc's seen (None) 09/06/16 09:26 Stl C. diff Tox B Gene Negative (NEGATIVE) 09/06/16 09:26 Stl C. diff [id number] Negative (NEGATIVE) 09/06/16 09:26 Cryptosporid parvum Ag Negative (NEGATIVE) 09/06/16 09:26 E. histolytica Antigen Negative (NEGATIVE) 09/06/16 09:26 Giardia lamblia Ag Negative (NEGATIVE) 09/06/16 09:26 H. pylori IgG Antibody Negative (NEGATIVE) 09/07/16 08:00 Influenza A (H1N1) PCR Not detected (NOT DETECT) 09/07/16 09:00 Influenza Type A (PCR) Negative (NEGATIVE) 09/07/16 09:00 Influenza Type B (PCR) Negative (NEGATIVE) 09/07/16 09:00 - Plan (1) Dehydration Status: Acute Plan: IV HYDRATION, potassim replacement. STOOL STUDIES, REPEAT AM LABS (2) Gastroenteritis Status: Acute Plan: CIPRO 400MG IV Q 12, STOOL CULTURES PENDING. FLU SWAB, PPI, LIBRAX PO. CLEAR LIQUIDS, ADVANCE TO BLAND TOLERATED (3) Hypotension Status: Acute Qualifiers: Hypotension type: H Trimester: T Plan: stable, continue to monitor (4) Herniation of intervertebral disc at C5-C6 level Status: Chronic
[2016-09-08] MEDS: AMBIEN PO PRN (21:13)
[2016-09-08] MEDS ORDERED: DECADRON INJ PRESERVATIVE-FREE ONE (22:10)
[2016-09-08] MEDS ORDERED: NS 50 ML IV 50 ML IV ONE (22:10)
[2016-09-08] MEDS ORDERED: ATIVAN INJ 2 MG VIAL ONE (22:11)
[2016-09-09] MEDS: MYCELEX TROCHE MT SCH ×3 (06:07→14:13)
[2016-09-09] MEDS: PHENERGAN INJ 25 MG IV PRN ×2 (06:08→11:17)
[2016-09-09] MEDS: REGLAN INJ 10 MG VIAL IVP SCH ×2 (06:09→11:37)
[2016-09-09] MEDS: DEMEROL INJ IVP PRN ×3 (06:09→15:16)
[2016-09-09 06:14] LABS: BASOPHILS % (AUTO) 0.2 % (0.2-1.0); HEMATOCRIT 37.9 % (36.0-47.0); LYMPHOCYTES # (AUTO) 0.9 X10^3/uL (1.3-2.9); LYMPHOCYTES % (AUTO) 6.6 % (21.0-51.0); MEAN CORPUSCULAR HEMOGLOBIN 28.8 pg (27.0-34.0); MEAN CORPUSCULAR HGB CONC 34.3 g/dL (33.0-35.0); MEAN CORPUSCULAR VOLUME 83.9 fL (80.0-100.0); MEAN PLATELET VOLUME 9.1 fL (7.4-11.0); MONOCYTES # (AUTO) 0.2 x10^3/uL (0.3-0.8); MONOCYTES % (AUTO) 1.2 % (0.0-13.0); NEUTROPHILS # (AUTO) 12.4 x10^3/uL (2.2-4.8); PLATELET COUNT 162 X10^3/uL (150.0-450.0); RED BLOOD COUNT 4.52 X10^6/uL (3.5-5.4); WHITE BLOOD COUNT 13.5 X10^3/uL (3.6-10.0)
[2016-09-09] MEDS: LIBRAX PO PRN (06:21)
[2016-09-09 06:28] LABS: ALANINE AMINOTRANSFERASE 49 Units/L (12-78); ALBUMIN 2.6 g/dL (3.4-5.0); ALKALINE PHOSPHATASE 52 Units/L (46-116); ASPARTATE AMINO TRANSFERASE 14 Units/L (15-37); BLOOD UREA NITROGEN 10 mg/dL (7-18); CALCIUM 7.9 mg/dL (8.5-10.1); CARBON DIOXIDE 26.2 mmol/L (21-32); CHLORIDE 105 mmol/L (98-107); COR NA(FOR HYPERGLY) 141 mmol/L (136-145); CREATININE 0.66 mg/dL (0.55-1.02); GLUCOSE 139 mg/dL (65-99); SODIUM 140 mmol/L (136-145); TOTAL PROTEIN 5.5 g/dL (6.4-8.2); eGFR BLACK RACES > 60 (>60); eGFR NON BLACK RACES > 60 (>60)
[2016-09-09 07:16] LABS: BAND NEUTROPHILS % 1 % (0-10)
[2016-09-09 07:17] LABS: PLATELET MORPHOLOGY COMMENT NORMAL (NORMAL)
[2016-09-09] MEDS: D5 1/2 NS + KCL 20 MEQ/L 1,000 ML IV SCH (08:31)
[2016-09-09] MEDS: PEPCID 20 MG IV PREMIX* 20 MG/50 ML BAG IV SCH (08:32)
[2016-09-09] MEDS: PROTONIX INJ 40 MG VIAL IVP SCH (08:32)
[2016-09-09] MEDS: CIPRO IV 400 MG PREMIX* 400 MG/200 ML IV.SOLN. IV SCH (08:32)
[2016-09-09] MEDS: K-LYTE EFFERVESCENT PO SCH (11:34)
[2016-09-09 14:38] VITALS: BP 106/63
[2016-09-09] MEDS: ZOFRAN INJ 4 MG VIAL IVP PRN (14:54)
[2016-09-09] MEDS ORDERED: DEMEROL INJ IVP ONE (15:14)
== END 2016-09-09 15:25 | disposition home or self-care (01) | DRG 392 ==
LOC: ER 09:09 → OBS 12:01 → MED/SURG 09-07 14:30
PROVIDERS: ADMIT Internal Medicine; ATTEND Internal Medicine
DX: K52.89 Other specified noninfective gastroenteritis and colitis (principal); E86.0 Dehydration; I95.89 Other hypotension; R19.7 Diarrhea, unspecified; R11.2 Nausea with vomiting, unspecified; E87.6 Hypokalemia; M50.222 Other cervical disc displacement at C5-C6 level; E87.2 Acidosis
CPT/HCPCS: 36415; 36600; 71010; 74176; 76705; 80048; 80053; 81001; 82150; 82270; 82803; 83605; 83690; 85025; 85610; 85730; 86677; 87045; 87205; 87328; 87329; 87336; 87427; 87493; 87502; 87503; 87899; 93005; 93010; 96365; 96367; 96374; 96375; 99284; A4222; B5200; C9113; S0028; J0500; J0744; J1100; J2060; J2175; J2405; J2550; J2765; J3480; J7042; J7120

== ENCOUNTER → 2016-09-18 | Outpatient (CLI) | payer OTHER ==
[2016-09-09 14:38] VITALS: BP 106/63
[2016-09-18 11:16] LABS: BASOPHILS # (AUTO) 0.1 X10^3/uL (0.0-0.1); BASOPHILS % (AUTO) 0.6 % (0.2-1.0); EOSINOPHILS # (AUTO) 0.2 x10^3/uL (0.0-0.2); EOSINOPHILS % (AUTO) 1.5 % (0.9-2.9); HEMATOCRIT 42.4 % (36.0-47.0); LYMPHOCYTES # (AUTO) 3.2 X10^3/uL (1.3-2.9); MEAN CORPUSCULAR HEMOGLOBIN 29.4 pg (27.0-34.0); MEAN CORPUSCULAR HGB CONC 33.1 g/dL (33.0-35.0); MEAN CORPUSCULAR VOLUME 88.8 fL (80.0-100.0); MEAN PLATELET VOLUME 7.8 fL (7.4-11.0); MONOCYTES # (AUTO) 0.7 x10^3/uL (0.3-0.8); MONOCYTES % (AUTO) 7.1 % (0.0-13.0); NEUTROPHILS # (AUTO) 6.2 x10^3/uL (2.2-4.8); NEUTROPHILS % (AUTO) 59.8 % (42.0-75.0); PLATELET COUNT 226 X10^3/uL (150.0-450.0); RED BLOOD COUNT 4.77 X10^6/uL (3.5-5.4); RED CELL DISTRIBUTION WIDTH 14.4 % (11.6-16.5); WHITE BLOOD COUNT 10.4 X10^3/uL (3.6-10.0)
[2016-09-18 11:28] LABS: ALANINE AMINOTRANSFERASE 98 Units/L (12-78); ALBUMIN 3.2 g/dL (3.4-5.0); ALKALINE PHOSPHATASE 58 Units/L (46-116); ASPARTATE AMINO TRANSFERASE 13 Units/L (15-37); BLOOD UREA NITROGEN 8 mg/dL (7-18); CHLORIDE 106 mmol/L (98-107); COR CA(FOR HYPOALB) 9.6 mg/dL (8.5-10.1); CREATININE 0.73 mg/dL (0.55-1.02); GLUCOSE 72 mg/dL (65-99); SODIUM 142 mmol/L (136-145); TOTAL PROTEIN 6.2 g/dL (6.4-8.2); eGFR BLACK RACES > 60 (>60); eGFR NON BLACK RACES > 60 (>60)
[2016-09-18 11:37] LABS: D DIMER 386 ng/mL (0-400)
--- NOTE | 2016-09-18 11:49 | RAD ---
HISTORY: Dyspnea on exertion, weakness, history of hypokalemia. Study: PA and lateral chest. Comparison: Chest x-ray dated September 07, 2016. Findings: The trachea is midline. The cardiac silhouette is unremarkable. The lungs are clear without focal infiltrate or effusion. Scoliotic curvature appears unchanged given technique. Remaining osseous st ructures appear normal. IMPRESSION: 1. No acute cardiopulmonary disease. Reported By:
== END ==
LOC: LAB 10:57
PROVIDERS: ATTEND Nurse Practitioner Family
DX: R06.09 Other forms of dyspnea (principal); R53.81 Other malaise; E87.6 Hypokalemia
CPT/HCPCS: 36415; 71020; 80053; 85025; 85378

== ENCOUNTER 2017-02-14 11:08 | Emergency (ER) | payer OTHER ==
[2017-02-14 11:15] VITALS: BMI 21.6
--- NOTE | 2017-02-14 11:25 | DR.GENAD ---
HPI - PCP Primary Care Physician: DEBBIE - Complaint/Symptoms Chief Complaint Doctors Comments: NECK PAIN Chief Complaint:: PT C/O SEVERE NECK PAIN. PT IS STATUS POST NECK SURGERY 4 MONTHS. PT DENIES ANY TRAUMA. PT STATES HER NECK HAS JUST STARTED HURTING YESTERDAY. Self Treatment fo Chief Complaint: ULTRAM, NEUROTIN, NORCO - Nurses notes reviewed Nurses Notes Review: Yes - Source History Provided: Patient - Mode of Arrival Mode of Arrival: Ambulatory - Timing Onset of Chief Complaint: 02/13/17 Came on: Gradually - Duration Duration: Constant Duration: Days - Severity Severity: Moderate PMH - PMH Past Medical History: Yes Past Medical History: Arthritis Past Surgical History: Yes Surgical History: , Tonsillectomy Past Surgical History Comment: NECK SURGERY - Family History History of Family Medical Conditions: Yes Family Medical History: Diabetes Mellitus, Cancer, [place], Coronary Artery Disease, Hypertension - Social History Do you use any recreational Drugs:: No Lives With: Family Lives Where: Home - infectious screening In the last 2 months have you had wt loss of >10#?: NO Have you had fever, night sweats or hemotysis?: No Have you traveled outside the country in the last 6 months?: No Isolation: Standard PE - Vital Signs Vitals: Temperature 97.4 F Pulse Rate [Left Brachial] 75 Pulse Rate 84 Respiratory Rate 12 Blood Pressure [Left Arm] 121/55 Blood Pressure [Right Arm] 130/67 Blood Pressure 124/73 O2 Sat by Pulse Oximetry 100 - Diagnosis Discharge Problem: Neck pain, musculoskeletal, Cervical disc disorder, Abnormal MRI, cervical spine, H/O cervical spine surgery - Discharge Plan Disposition: 01 HOME, SELF-CARE Condition: Stable Prescriptions: Ibuprofen [MOTRIN TAB 600 MG *] 600 mg PO TID PRN #20 tab PRN Reason: Pain/Inflammation Lorazepam [Ativan Tab 1 mg] 1 mg PO TID #15 tab Ondansetron [Zofran ODT 8 mg] 8 mg PO Q8H PRN #20 tab PRN Reason: Nausea/Vomiting Tapentadol HCl [Nucynta] 50 mg PO Q6H PRN #20 tablet PRN Reason: Tizanidine HCl [Zanaflex] 4 mg PO Q8H #20 capsule - Follow ups/Referrals Follow ups/Referrals: ADY LEWIS [Primary Care Provider] - 02/15/17 - Instructions Instructions: Cervical Strain and Sprain With [facility]hab[facility] Additional Instructions: RETURN TO ED IF WORSE.
[2017-02-14] MEDS ORDERED: NORFLEX INJ IM ONE (11:29)
[2017-02-14] MEDS ORDERED: TORADOL 30 MG VIAL IVP ONE (11:29)
[2017-02-14] MEDS ORDERED: TORADOL 30 MG VIAL ONE (11:31)
[2017-02-14] MEDS ORDERED: NORFLEX INJ ONE (11:31)
[2017-02-14] MEDS ORDERED: DEMEROL INJ IVP ONE (12:41)
[2017-02-14] MEDS ORDERED: DEMEROL INJ ONE (12:42)
[2017-02-14] MEDS ORDERED: DILAUDID INJ IVP ONE (13:13)
[2017-02-14] MEDS ORDERED: DILAUDID INJ ONE (13:14)
--- NOTE | 2017-02-14 14:07 | MRI ---
HISTORY: Cervical spine pain. Previous surgery. Now with excruciating pain. Study: Magnetic resonance imaging of the cervical spine: Multiplanar multisequence magnetic resonan ce imaging of cervical spine performed. Images obtained before and after the infusion of intravascul ar contrast per standard protocol. Please note there is marked distortion of the upper cervical spine and mid cervical spine on the T1 w eighted images secondary to the patient's dental work. The post infused T1 weighted images are marke dly degraded in this region. Please also note that the axial images do not correspond to the sagitta l images with reference to the supervisor blood lines. Per discussion with the technologist, the patient had to get up and move several times during the exa mination which led to the misregistration between the axial images and the sagittal images. The abhilash ent had braces and that distorted the T1 weighted images. Comparison: 08/15/2016 Findings: Examination of the paraspinal soft tissues demonstrate no evidence of adenopathy. The paraspinous mu sculature is of normal signal intensity. The sagittal images demonstrate loss of normal cervical lordosis. Evidence for previous ACDF is note d at C6/C7. Mild disc desiccation is noted at a few levels. The cervical spinal cord is of normal s ignal intensity. No evidence of abnormal enhancement within the cervical spinal cord noted given pazi itations as described above.. The marrow signal intensity is homogeneous. I see no evidence of rich ow edema. Please note that the axial images do not coincide with the pre or post-contrast enhanced images.. Skullbase/C1: No significant abnormalities. C1/C2: No significant abnormalities. The anterior and posterior arch of C1 appear to be intact. C2/C3: Minimal disc spur complex formation is noted. No other significant abnormalities. C3/C4: Minimal disc spur complex formation. No other appreciable abnormalities. C4/C5: Minimal disc spur complex formation. No other appreciable abnormalities. C5/C6: Minimal disc spur complex formation. No other appreciable abnormalities. There is a small c entral spur that does abut the spinal cord. C6/C7: Minimal disc spur complex formation. No other appreciable abnormalities. C7/T1: No significant abnormalities. T1/T2: No significant abnormalities. T2/T3: Sagittal images only. No significant abnormalities. T3/T4: Sagittal images only. No significant abnormalities. IMPRESSION: 1. Cervical spondylosis as described above. This predominates at C5/C6 with appears to be a small d isc spur complex with central extension abutting the spinal cord.. 2. Findings of previous ACDF at C6-C7. 3. Please note that the axial images do not correspond to the levels on the sagittal images. The axi al images have to be followed sequentially for proper localization. This was secondary to the patien t having to get up a couple of time during the examination. 4. The T1 weighted images before and after contrast are markedly distorted secondary to the patient' s dental work. This was because of the patient's braces. Reported By:
[2017-02-14] MEDS ORDERED: ATIVAN INJ 2 MG VIAL ONE (14:35)
[2017-02-14] MEDS ORDERED: ATIVAN INJ 2 MG VIAL IVP ONE (14:37)
[2017-02-14 14:54] VITALS: BP 121/55
== END 2017-02-14 16:05 | disposition home or self-care (01) ==
LOC: ER 11:29
DX: M54.2 Cervicalgia (principal); M79.1 Myalgia; M50.90 Cervical disc disorder, unspecified, unspecified cervical region; R93.7 Abnormal findings on diagnostic imaging of other parts of musculoskeletal system; Z98.1 Arthrodesis status
CPT/HCPCS: 72156; 96365; 96372; 96374; 96375; 99283; A4222; J1170; J1885; J2060; J2175; J2360

== ENCOUNTER 2017-04-07 01:53 | Emergency (ER) | payer OTHER ==
[2017-04-07 02:03] VITALS: BP 113/61; BMI 23.5
[2017-04-07] MEDS ORDERED: NS 1000 ML 1,000 ML IV ONE (02:18)
[2017-04-07] MEDS ORDERED: PHENERGAN INJ 25 MG IVP ONE (02:19)
--- NOTE | 2017-04-07 02:20 | DR.GENAD ---
HPI - PCP Primary Care Physician: ADY LEWIS - Complaint/Symptoms Chief Complaint Doctors Comments: 36 y/o female presenting with complains of N/ V onset 2 days prior to E.D. visit (04/04/17). She denies abdominal pain, fever or chills. She denies recent travel outside this area or consumption of poorly prepared food items. She has taken Promethazine follwed by Zofran yesterday evening. Chief Complaint:: N/V X2 DAYS. NOT ABLE TO KEEP ANYTHING DOWN. Self Treatment fo Chief Complaint: PHENERGAN 25MG @ 1200. ZOFRAN 8MG @ 1830 - Source History Provided: Patient - Mode of Arrival Mode of Arrival: Ambulatory - Timing Onset of Chief Complaint: 04/05/17 - Modifying Factors Worsens:: nothing Improves:: nothing PMH - PMH Past Medical History: Yes Past Medical History: Arthritis Past Surgical History: Yes Surgical History: , Tonsillectomy - Family History History of Family Medical Conditions: Yes Family Medical History: Diabetes Mellitus, Cancer, [place], Coronary Artery Disease, Hypertension - Social History Alcohol Use: None Do you use any recreational Drugs:: No - infectious screening Have you traveled outside the country in the last 6 months?: No ROS - Review of Systems Constitutional: No Symptoms Reported Eyes: No Symptoms Reported ENTM: No Symptoms Reported Respiratoy: No Symptoms Reported Cardiovascular: No Symptoms Reported Gastrointestinal/Abdominal: No Symptoms Reported, See HPI, Nausea. negative: Abdominal Pain, Constipation, Diarrhea, Food Intolerance Genitourinary: No Symptoms Reported Neurological: No Symptoms Reported Musculoskeletal: No Symptoms Reported Integumentary: No Symptoms Reported Hematologic/Lymphatic: No Symptoms Reported Endocrine: No Symptoms Reported Psychiatric: No Symptoms Reported All Other Systems: Reviewed and Negative PE - Vital Signs Vitals: Temperature 97.6 F Pulse Rate 110 Respiratory Rate 18 Blood Pressure [Left Arm] 121/55 Blood Pressure [Right Arm] 130/67 Blood Pressure 113/61 O2 Sat by Pulse Oximetry 97 - General Limitations: No Limitations General Appearance: Alert, In No Apparent Distress - Head Head Exam: Normal Inspection - Eyes Eye exam: Normal Appearance, PERRL, EOMI - ENT ENT Exam: Normal Exam, Normal Oropharynx, Normal External Ear Exam, Mucous Membranes Moist - Chest Chest Inspection: Normal Inspection, Symmetric Chest Wall Rise - Respiratory Respiratory Exam: Normal Lung Sounds Bilat - Cardiovascular Cardiovascular Exam: Regular Rate, Normal Rhythm - Abdominal Exam Abdominal Exam: Normal Inspection, Normal Bowel Sounds, Soft. negative: Distention, Tenderness, Guarding, Rebound, Rigidity, Dimnished Bowel Sounds, Hyperactive Bowel Sounds, Hypoactive Bowel Sounds, Organomegaly, Trauma, Incision, Ascites, Mass, Bruit, Pulsatile Mass, Hernia - Extremities Extremities Exam: Normal Inspection, Full ROM - Back Back Exam: Normal Inspection - Neurologic Neurological Exam: Alert, Oriented X3, CN II-XII Intact - Psychiatric Psychiatric Exam: Normal Affect - Skin Skin Exam: Warm, Dry, Intact, Normal Color Course - Reevaluation 1st: Improved - Education/Counseling Education/Counseling: Patient, Family, Counseling Educated On: Treatment, Diagnosis, Prognosis, Needs for Follow Up ROR - Labs Reviewed Result Diagrams: 04/07/17 02:30 04/07/17 02:30 Laboratory: WBC 7.4 X10^3/uL (3.6-10.0) 04/07/17 02:30 RBC 5.35 X10^6/uL (3.5-5.4) 04/07/17 02:30 Hgb 15.8 g/dL (12.0-16.0) 04/07/17 02:30 Hct 46.0 % (36.0-47.0) 04/07/17 02:30 MCV 85.9 fL (80.0-100.0) 04/07/17 02:30 MCH 29.6 pg (27.0-34.0) 04/07/17 02:30 MCHC 34.4 g/dL (33.0-35.0) 04/07/17 02:30 RDW 12.6 % (11.6-16.5) 04/07/17 02:30 Plt Count 246 X10^3/uL (150.0-450.0) 04/07/17 02:30 MPV 8.8 fL (7.4-11.0) 04/07/17 02:30 Neut % 66.5 % (42.0-75.0) 04/07/17 02:30 Lymph % 25.2 % (21.0-51.0) 04/07/17 02:30 [place] % 7.0 % (0.0-13.0) 04/07/17 02:30 Eos % 0.9 % (0.9-2.9) 04/07/17 02:30 Baso % 0.4 % (0.2-1.0) 04/07/17 02:30 Neut # 4.9 x10^3/uL (2.2-4.8) H 04/07/17 02:30 Lymph # 1.9 X10^3/uL (1.3-2.9) 04/07/17 02:30 [place] # 0.5 x10^3/uL (0.3-0.8) 04/07/17 02:30 Eos # 0.1 x10^3/uL (0.0-0.2) 04/07/17 02:30 Baso # 0.0 X10^3/uL (0.0-0.1) 04/07/17 02:30 Absolute Nucleated RBC 0.0 /100WBC 04/07/17 02:30 Sodium 140 mmol/L (136-145) 04/07/17 02:30 Corrected Sodium TNP 04/07/17 02:30 Potassium 4.2 mmol/L (3.5-5.1) 04/07/17 02:30 Chloride 103 mmol/L (98-107) 04/07/17 02:30 Carbon Dioxide 27.5 mmol/L (21-32) 04/07/17 02:30 BUN 13 mg/dL (7-18) 04/07/17 02:30 Creatinine 0.98 mg/dL (0.55-1.02) 04/07/17 02:30 Est GFR (MDRD) Af Amer > 60 (>60) 04/07/17 02:30 Est GFR (MDRD) Non-Af > 60 (>60) 04/07/17 02:30 Glucose 87 mg/dL (65-99) 04/07/17 02:30 Calcium 9.4 mg/dL (8.5-10.1) 04/07/17 02:30 Corrected Calcium TNP 04/07/17 02:30 Total Bilirubin 0.50 mg/dL (0.2-1.0) 04/07/17 02:30 AST 16 Units/L (15-37) 04/07/17 02:30 ALT 37 Units/L (12-78) 04/07/17 02:30 Alkaline Phosphatase 84 Units/L (46-116) 04/07/17 02:30 Total Protein 8.0 g/dL (6.4-8.2) 04/07/17 02:30 Albumin 4.6 g/dL (3.4-5.0) 04/07/17 02:30 Globulin 3.4 g/dL (2.5-4.5) 04/07/17 02:30 Albumin/Globulin Ratio 1.4 Ratio (1.1-2.1) 04/07/17 02:30 Amylase 29 Units/L (25-115) 04/07/17 02:30 Lipase 77 Units/L (73-393) 04/07/17 02:30 - Diagnosis Discharge Problem: Nausea and vomiting - Discharge Plan Disposition: 01 HOME, SELF-CARE Condition: Stable - Follow ups/Referrals Follow ups/Referrals: ADY LEWIS [Primary Care Provider] - 3 days - Instructions
[2017-04-07] MEDS ORDERED: PHENERGAN INJ 25 MG ONE ×2 (02:22→03:21)
[2017-04-07] MEDS ORDERED: NS 1000 ML 1,000 ML ONE (02:22)
[2017-04-07 02:52] LABS: BASOPHILS % (AUTO) 0.4 % (0.2-1.0); EOSINOPHILS # (AUTO) 0.1 x10^3/uL (0.0-0.2); EOSINOPHILS % (AUTO) 0.9 % (0.9-2.9); HEMOGLOBIN 15.8 g/dL (12.0-16.0); LYMPHOCYTES # (AUTO) 1.9 X10^3/uL (1.3-2.9); LYMPHOCYTES % (AUTO) 25.2 % (21.0-51.0); MEAN CORPUSCULAR HEMOGLOBIN 29.6 pg (27.0-34.0); MEAN CORPUSCULAR HGB CONC 34.4 g/dL (33.0-35.0); MEAN CORPUSCULAR VOLUME 85.9 fL (80.0-100.0); MEAN PLATELET VOLUME 8.8 fL (7.4-11.0); MONOCYTES # (AUTO) 0.5 x10^3/uL (0.3-0.8); NEUTROPHILS # (AUTO) 4.9 x10^3/uL (2.2-4.8); NEUTROPHILS % (AUTO) 66.5 % (42.0-75.0); PLATELET COUNT 246 X10^3/uL (150.0-450.0); RED BLOOD COUNT 5.35 X10^6/uL (3.5-5.4); RED CELL DISTRIBUTION WIDTH 12.6 % (11.6-16.5); WHITE BLOOD COUNT 7.4 X10^3/uL (3.6-10.0)
[2017-04-07 02:57] LABS: ALANINE AMINOTRANSFERASE 37 Units/L (12-78); ALBUMIN 4.6 g/dL (3.4-5.0); ALKALINE PHOSPHATASE 84 Units/L (46-116); AMYLASE 29 Units/L (25-115); ASPARTATE AMINO TRANSFERASE 16 Units/L (15-37); BLOOD UREA NITROGEN 13 mg/dL (7-18); CALCIUM 9.4 mg/dL (8.5-10.1); CARBON DIOXIDE 27.5 mmol/L (21-32); CHLORIDE 103 mmol/L (98-107); CREATININE 0.98 mg/dL (0.55-1.02); LIPASE 77 Units/L (73-393); SODIUM 140 mmol/L (136-145); eGFR BLACK RACES > 60 (>60); eGFR NON BLACK RACES > 60 (>60)
[2017-04-07] MEDS ORDERED: PHENERGAN INJ 25 MG IV ONE (03:17)
--- NOTE | 2017-04-07 04:21 | RAD ---
Acute abdomen series three views Indication: Nausea and vomiting. Findings: Chest radiograph is normal without pneumothorax or effusion. Abdominal bowel gas pattern sh ows gas and stool in the colon without free air or pneumatosis. No dilated loop of small bowel or abn ormal calcific densities seen. Lumbar spine curves to the left. IUD projects over the pelvis. Impression: No high-grade obstruction, free air or pneumatosis. Reported By:
== END 2017-04-07 04:13 | disposition home or self-care (01) ==
LOC: ER 01:53
DX: R11.2 Nausea with vomiting, unspecified (principal)
CPT/HCPCS: 36415; 74022; 80053; 82150; 83690; 85025; 96365; 96374; 96375; 99283; A4222; J2550

== ENCOUNTER 2017-07-11 06:12 | Emergency (ER) | payer OTHER ==
[2017-07-11 06:17] VITALS: BP 119/56; BMI 24.0
[2017-07-11] MEDS ORDERED: NS 1000 ML 1,000 ML ONE (06:25)
--- NOTE | 2017-07-11 06:25 | DR.GENAD ---
HPI - PCP Primary Care Physician: DEBBIE - Complaint/Symptoms Chief Complaint Doctors Comments: Patient presents with complaint of nausea and vomiting for three days, initially improved but last night has not been able to keep anything down. Denies fever, or diarrhea. Chief Complaint:: NAUSEA, VOMITING - Source History Provided: Patient - Mode of Arrival Mode of Arrival: Ambulatory - Timing Onset of Chief Complaint: 07/11/17 PMH - PMH Past Medical History: Yes Past Medical History: Arthritis Past Surgical History: Yes Surgical History: , Tonsillectomy - Family History History of Family Medical Conditions: Yes Family Medical History: Diabetes Mellitus, Cancer, [place], Coronary Artery Disease, Hypertension - Social History Do you use any recreational Drugs:: No - infectious screening In the last 2 months have you had wt loss of >10#?: NO Have you had fever, night sweats or hemotysis?: No Have you traveled outside the country in the last 6 months?: No Isolation: Standard ROS - Review of Systems Eyes: No Symptoms Reported ENTM: No Symptoms Reported Respiratoy: No Symptoms Reported Cardiovascular: No Symptoms Reported Gastrointestinal/Abdominal: No Symptoms Reported Genitourinary: No Symptoms Reported Neurological: No Symptoms Reported Musculoskeletal: No Symptoms Reported Integumentary: No Symptoms Reported Hematologic/Lymphatic: No Symptoms Reported Endocrine: No Symptoms Reported Psychiatric: No Symptoms Reported All Other Systems: Reviewed and Negative PE - Vital Signs Vitals: Temperature 97.9 F Pulse Rate 100 Respiratory Rate 16 Blood Pressure [Left Arm] 121/55 Blood Pressure [Right Arm] 130/67 Blood Pressure 119/56 O2 Sat by Pulse Oximetry 99 - General Limitations: No Limitations General Appearance: Alert, In No Apparent Distress - Head Head Exam: Normal Inspection, Atraumatic - Eyes Eye exam: Normal Appearance, PERRL, EOMI - ENT ENT Exam: Normal Exam External Ear Exam: Normal External Inspection, Auricular Hematoma TM/Canal Exam: Bilateral Normal Nose Exam: Normal Nose Exam Mouth Exam: Other (erythematous) Throat Exam: Normal Inspection - Neck Neck Exam: Normal Inspection, Full ROM. negative: Tenderness - Chest Chest Inspection: Normal Inspection, Symmetric Chest Wall Rise - Respiratory Respiratory Exam: Normal Lung Sounds Bilat Respiratory Exam: Bilateral Clear to Auscultation - Cardiovascular Cardiovascular Exam: Tachycardia - Abdominal Exam Abdominal Exam: Normal Inspection Abdominal Tenderness: negative: RUQ, RLQ, LUQ, LLQ, Epigastrium, Suprapubic, Diffuse, Mild, Moderate, Severe, Other - Extremities Extremities Exam: Normal Inspection, Full ROM - Back Back Exam: Normal Inspection, Full ROM - Neurologic Neurological Exam: Alert, Oriented X3, CN II-XII Intact Course - Reevaluation 1st: Improved - Education/Counseling Educated On: Treatment, Diagnosis, Prognosis ROR - Labs Reviewed Laboratory Results Reviewed?: Yes (strep pending) Result Diagrams: 07/11/17 07:18 07/11/17 07:18 Laboratory: WBC 12.4 X10^3/uL (3.6-10.0) H 07/11/17 07:18 RBC 5.26 X10^6/uL (3.5-5.4) 07/11/17 07:18 Hgb 15.7 g/dL (12.0-16.0) 07/11/17 07:18 Hct 45.5 % (36.0-47.0) 07/11/17 07:18 MCV 86.6 fL (80.0-100.0) 07/11/17 07:18 MCH 29.8 pg (27.0-34.0) 07/11/17 07:18 MCHC 34.4 g/dL (33.0-35.0) 07/11/17 07:18 RDW 13.0 % (11.6-16.5) 07/11/17 07:18 Plt Count 251 X10^3/uL (150.0-450.0) 07/11/17 07:18 MPV 9.6 fL (7.4-11.0) 07/11/17 07:18 Neut % (Auto) 77.9 % (42.0-75.0) H 07/11/17 07:18 Lymph % (Auto) 16.9 % (21.0-51.0) L 07/11/17 07:18 [place] % (Auto) 4.8 % (0.0-13.0) 07/11/17 07:18 Eos % (Auto) 0.1 % (0.9-2.9) L 07/11/17 07:18 Baso % (Auto) 0.3 % (0.2-1.0) 07/11/17 07:18 Neut # (Auto) 9.7 x10^3/uL (2.2-4.8) H 07/11/17 07:18 Lymph # (Auto) 2.1 X10^3/uL (1.3-2.9) 07/11/17 07:18 [place] # (Auto) 0.6 x10^3/uL (0.3-0.8) 07/11/17 07:18 Eos # (Auto) 0.0 x10^3/uL (0.0-0.2) 07/11/17 07:18 Baso # (Auto) 0.0 X10^3/uL (0.0-0.1) 07/11/17 07:18 Absolute Nucleated RBC 0.0 /100WBC 07/11/17 07:18 Sodium 141 mmol/L (136-145) 07/11/17 07:18 Corrected Sodium TNP 07/11/17 07:18 Potassium 3.6 mmol/L (3.5-5.1) 07/11/17 07:18 Chloride 103 mmol/L (98-107) 07/11/17 07:18 Carbon Dioxide 23.4 mmol/L (21-32) 07/11/17 07:18 BUN 11 mg/dL (7-18) 07/11/17 07:18 Creatinine 0.91 mg/dL (0.55-1.02) 07/11/17 07:18 Est GFR (MDRD) Af Amer > 60 (>60) 07/11/17 07:18 Est GFR (MDRD) Non-Af > 60 (>60) 07/11/17 07:18 Glucose 90 mg/dL (65-99) 07/11/17 07:18 Calcium 9.6 mg/dL (8.5-10.1) 07/11/17 07:18 Corrected Calcium TNP 07/11/17 07:18 Total Bilirubin 0.30 mg/dL (0.2-1.0) 07/11/17 07:18 AST 15 Units/L (15-37) 07/11/17 07:18 ALT 29 Units/L (12-78) 07/11/17 07:18 Alkaline Phosphatase 96 Units/L (46-116) 07/11/17 07:18 C-Reactive Protein 4.70 mg/L (0-3.0) H 07/11/17 07:18 Total Protein 8.8 g/dL (6.4-8.2) H 07/11/17 07:18 Albumin 5.2 g/dL (3.4-5.0) H 07/11/17 07:18 Globulin 3.6 g/dL (2.5-4.5) 07/11/17 07:18 Albumin/Globulin Ratio 1.4 Ratio (1.1-2.1) 07/11/17 07:18 - XRAY XRAY Interpreted by: Radiologist (Acute Abdomen: No acute cardiopulmonary disease. no evidence of bowel obstruction or perforation is seen.) - Diagnosis Discharge Problem: Nausea & vomiting Qualifiers: Vomiting type: unspecified Vomiting Intractability: non-intractable Qualified Code(s): R11.2 - Nausea with vomiting, unspecified - Discharge Plan Condition: Stable - Follow ups/Referrals Follow ups/Referrals: ADY LEWIS [Primary Care Provider] - 3 days - Instructions
[2017-07-11] MEDS ORDERED: TORADOL 30 MG VIAL IVP ONE (06:26)
[2017-07-11] MEDS ORDERED: TORADOL 30 MG VIAL ONE (06:28)
[2017-07-11] MEDS ORDERED: ZOFRAN INJ 4 MG VIAL ONE (06:28)
[2017-07-11] MEDS ORDERED: ZOFRAN INJ 4 MG VIAL IVP ONE (06:58)
[2017-07-11] MEDS ORDERED: NS 100 ML IV 100 ML IV ONE (06:58)
[2017-07-11] MEDS ORDERED: NS 1000 ML 1,000 ML IV ONE (06:59)
--- NOTE | 2017-07-11 07:13 | RAD ---
HISTORY: Nausea and vomiting for 2 days. Patient not able to keep anything down. Study: Acute abdomen series Comparison: 04/07/2017. Technique: KUB and upright views the abdomen are provided as well as a frontal view of the chest. Findings: There is again evidence of lower cervical spine surgery with metallic plate and screws present. The t rachea is midline. The heart size is normal. Lungs and pleural spaces are clear. There is a thoracolu mbar scoliosis present. No free intraperitoneal air or fluid is seen. There is no evidence of bowel obstruction. The stool bu rden throughout the colon is significantly less compared to prior studies. An IUD is seen within the central pelvis. No opaque stone is identified. IMPRESSION: No acute cardiopulmonary disease. No evidence of bowel obstruction or perforation is seen. Reported By:
[2017-07-11 07:47] LABS: BASOPHILS % (AUTO) 0.3 % (0.2-1.0); EOSINOPHILS % (AUTO) 0.1 % (0.9-2.9); HEMATOCRIT 45.5 % (36.0-47.0); HEMOGLOBIN 15.7 g/dL (12.0-16.0); LYMPHOCYTES # (AUTO) 2.1 X10^3/uL (1.3-2.9); LYMPHOCYTES % (AUTO) 16.9 % (21.0-51.0); MEAN CORPUSCULAR HEMOGLOBIN 29.8 pg (27.0-34.0); MEAN CORPUSCULAR HGB CONC 34.4 g/dL (33.0-35.0); MEAN CORPUSCULAR VOLUME 86.6 fL (80.0-100.0); MEAN PLATELET VOLUME 9.6 fL (7.4-11.0); MONOCYTES # (AUTO) 0.6 x10^3/uL (0.3-0.8); MONOCYTES % (AUTO) 4.8 % (0.0-13.0); NEUTROPHILS # (AUTO) 9.7 x10^3/uL (2.2-4.8); NEUTROPHILS % (AUTO) 77.9 % (42.0-75.0); PLATELET COUNT 251 X10^3/uL (150.0-450.0); RED BLOOD COUNT 5.26 X10^6/uL (3.5-5.4); WHITE BLOOD COUNT 12.4 X10^3/uL (3.6-10.0)
[2017-07-11 07:57] LABS: ALANINE AMINOTRANSFERASE 29 Units/L (12-78); ALBUMIN 5.2 g/dL (3.4-5.0); ALKALINE PHOSPHATASE 96 Units/L (46-116); ASPARTATE AMINO TRANSFERASE 15 Units/L (15-37); BLOOD UREA NITROGEN 11 mg/dL (7-18); CALCIUM 9.6 mg/dL (8.5-10.1); CARBON DIOXIDE 23.4 mmol/L (21-32); CHLORIDE 103 mmol/L (98-107); CREATININE 0.91 mg/dL (0.55-1.02); SODIUM 141 mmol/L (136-145); TOTAL PROTEIN 8.8 g/dL (6.4-8.2); eGFR BLACK RACES > 60 (>60); eGFR NON BLACK RACES > 60 (>60)
== END 2017-07-11 08:25 | disposition home or self-care (01) ==
LOC: ER 06:12
DX: R11.2 Nausea with vomiting, unspecified (principal)
CPT/HCPCS: 36415; 74022; 80053; 85025; 86140; 87651; 96365; 96374; 96375; 99282; 99283; A4222; J1885; J2405

== ENCOUNTER 2017-07-17 09:45 | Outpatient (CLI) | payer OTHER ==
[2017-07-17 10:44] LABS: STOOL FOR WBC NEGATIVE (NEGATIVE)
[2017-07-17] MEDS ORDERED: NS 1000 ML 1,000 ML IV ONE (10:48)
[2017-07-17 10:49] VITALS: BMI 24.3
[2017-07-17] MEDS ORDERED: PROTONIX INJ 40 MG VIAL IVP ONE (10:50)
[2017-07-17 10:56] LABS: CRYPTOSPORIDIUM PARVUM ANTIGEN NEGATIVE (NEGATIVE); GIARDIA LAMBLIA ANTIGEN NEGATIVE (NEGATIVE)
[2017-07-17] MEDS ORDERED: PHENERGAN INJ 25 MG IV ONE (11:00)
--- NOTE | 2017-07-17 12:03 | US ---
Examination: Abdominal ultrasound. Clinical History: Nausea, vomiting, abdominal pain. Technique: Real-time grayscale ultrasound was used to evaluate the right upper abdomen. Comparison: 09/08/2016. Findings: The gallbladder is normal in appearance with no cholelithiasis, gallbladder wall thickening or perich olecystic fluid noted. The common bile duct measures 4 mm in diameter and is within normal limits. No intrahepatic biliary d uctal dilatation is noted. The liver is normal in echogenicity with no focal mass. The pancreas is obscured by bowel gas and could not be evaluated. The right kidney measures 8.9 cm in length and is suboptimally visualized with no definite focal mass , hydronephrosis or nephrolithiasis noted. Impression: 1. Negative right upper quadrant abdominal ultrasound. Reported By:
== END 2017-07-17 11:06 | disposition home or self-care (01) ==
LOC: RAD 09:45
PROVIDERS: ATTEND Psychiatry & Neurology Neurology
DX: R11.2 Nausea with vomiting, unspecified (principal); Z79.899 Other long term (current) drug therapy
CPT/HCPCS: 76705; 82274; 83630; 87328; 87329; 87336; 87338; 96365; 96374; 96375; C9113; J2550

== ENCOUNTER → 2017-07-24 | Outpatient (CLI) | payer OTHER ==
[2017-07-11 06:17] VITALS: BP 119/56
--- NOTE | 2017-07-24 11:47 | NM ---
Indication: Vomiting and nausea Exam: Nuclear medicine HIDA scan and ejection fraction. Technique: The patient was injected with 6 mCi of technetium 99 M mebrofenin IV with dynamic and sanjeev yed images obtained. Findings: There is physiologic uptake throughout the liver with uptake in the gallbladder and small b owel within 50 minutes. The patient was then given 8 oz of Ensure Plus orally and a gallbladder eject ion fraction was calculated at -6.1% with paradoxical filling of the gallbladder on the delayed image s. Impression: Abnormal gallbladder ejection fraction suggestive of biliary dyskinesia otherwise, unrema rkable. Reported By:
== END ==
LOC: RAD 08:45
PROVIDERS: ATTEND Psychiatry & Neurology Neurology
DX: R11.2 Nausea with vomiting, unspecified (principal)
CPT/HCPCS: 78227; A4222; A9537

== ENCOUNTER → 2017-07-25 | Day surgery (SDC) | payer OTHER ==
[~2017-07-25] MED LIST: ANCEF 1 GM IV PREMIX* 1 GM/50 ML BAG IV ONE; BENADRYL INJ 50 MG VIAL IVP PRN; DECADRON INJ ONE; DILAUDID INJ IVP PRN; DIPRIVAN VIAL ONE; FENTANYL INJ 250 mcg ONE; LR 1000 ML IV 1,000 ML IV ONE; NEOSTIGMINE INJ ONE; NORCO 5/325 MG TAB PO PRN; NORCURON INJ 10 MG VIAL ONE; NS IRRIGATION 1000 ML 1,000 ML IR ONE; PHENERGAN INJ 25 MG IVP PRN; PHENERGAN INJ 25 MG ONE; QUELICIN (OR ANECTINE) ONE; REGLAN INJ 10 MG VIAL IVP PRN; REGLAN INJ 10 MG VIAL ONE; ROBINUL ONE; SUPRANE IN ONE; TORADOL 30 MG VIAL ONE; VERSED ONE; XYLOCAINE 2 % (PLAIN) ONE; ZOFRAN INJ 4 MG VIAL IVP PRN; ZOFRAN INJ 4 MG VIAL ONE
[2017-07-25 13:38] VITALS: BP 103/62
== END | disposition home or self-care (01) | DRG 419 ==
LOC: SURG1 09:13
PROVIDERS: ATTEND Surgery
PROC: 0FT44ZZ Resection of Gallbladder, Percutaneous Endoscopic Approach (ICD-10-PCS; principal; 2017-07-25 10:30)
DX: K81.9 Cholecystitis, unspecified (principal); K82.8 Other specified diseases of gallbladder
CPT/HCPCS: 36415; 84702; A4216; A4222; J0330; J0690; J1100; J1170; J1885; J2001; J2250; J2405; J2550; J2710; J2765; J3010; J3490; J7120

== ENCOUNTER 2017-08-01 10:50 | Day surgery (SDC) | payer OTHER ==
[2017-08-01] MEDS ORDERED: LR 1000 ML IV 1,000 ML IV ONE (10:57)
[2017-08-01 12:17] LABS: BASOPHILS % (AUTO) 0.4 % (0.2-1.0); EOSINOPHILS # (AUTO) 0.1 x10^3/uL (0.0-0.2); EOSINOPHILS % (AUTO) 1.1 % (0.9-2.9); HEMATOCRIT 44.5 % (36.0-47.0); HEMOGLOBIN 15.4 g/dL (12.0-16.0); LYMPHOCYTES # (AUTO) 1.9 X10^3/uL (1.3-2.9); MEAN CORPUSCULAR HEMOGLOBIN 29.7 pg (27.0-34.0); MEAN CORPUSCULAR HGB CONC 34.6 g/dL (33.0-35.0); MEAN CORPUSCULAR VOLUME 85.8 fL (80.0-100.0); MONOCYTES # (AUTO) 0.6 x10^3/uL (0.3-0.8); MONOCYTES % (AUTO) 6.5 % (0.0-13.0); NEUTROPHILS # (AUTO) 6.2 x10^3/uL (2.2-4.8); PLATELET COUNT 242 X10^3/uL (150.0-450.0); RED BLOOD COUNT 5.19 X10^6/uL (3.5-5.4); RED CELL DISTRIBUTION WIDTH 12.7 % (11.6-16.5); WHITE BLOOD COUNT 8.8 X10^3/uL (3.6-10.0)
[2017-08-01] MEDS ORDERED: DIPRIVAN VIAL 20 ML ONE (12:17)
[2017-08-01] MEDS ORDERED: DIPRIVAN VIAL 10 ML ONE (12:21)
[2017-08-01 12:29] LABS: ALANINE AMINOTRANSFERASE 60 Units/L (12-78); ALBUMIN 4.7 g/dL (3.4-5.0); ALKALINE PHOSPHATASE 131 Units/L (46-116); AMYLASE 19 Units/L (25-115); ASPARTATE AMINO TRANSFERASE 21 Units/L (15-37); BLOOD UREA NITROGEN 13 mg/dL (7-18); CALCIUM 9.6 mg/dL (8.5-10.1); CARBON DIOXIDE 23.4 mmol/L (21-32); CHLORIDE 101 mmol/L (98-107); CREATININE 0.85 mg/dL (0.55-1.02); LIPASE 75 Units/L (73-393); SODIUM 138 mmol/L (136-145); TOTAL PROTEIN 8.6 g/dL (6.4-8.2); eGFR BLACK RACES > 60 (>60); eGFR NON BLACK RACES > 60 (>60)
[2017-08-01] MEDS ORDERED: PROTONIX INJ 40 MG VIAL ONE (12:39)
[2017-08-01] MEDS ORDERED: ATIVAN INJ 2 MG VIAL ONE (12:41)
[2017-08-01] MEDS ORDERED: PROTONIX INJ 40 MG VIAL IVP ONE (12:45)
[2017-08-01] MEDS ORDERED: D5 1/2 NS 1000 ML 1,000 ML IV ONE (12:46)
[2017-08-01] MEDS ORDERED: ATIVAN INJ 2 MG VIAL IVP ONE (12:46)
--- NOTE | 2017-08-01 13:03 | OR.GENERIC ---
Post-Op Note Generic - Post-Op Note Operative Report: EGD with BXs was done . finding : Gastritis involving gastric wallsand multiple gastric polyps in the fundus. will hydrate for few hours .Pt could be having cyclic vomiting as well.. start on oral protonix. Ativan ,Zofran ,low fat diet
[2017-08-01 14:15] VITALS: BP 115/79
== END 2017-08-01 14:05 | disposition home or self-care (01) ==
LOC: SURG1 10:50
PROVIDERS: ATTEND Surgery
PROC: 0DJ08ZZ Inspection of Upper Intestinal Tract, Via Natural or Artificial Opening Endoscopic (ICD-10-PCS; principal; 2017-08-01 11:30)
PROC: 0DB68ZX Excision of Stomach, Via Natural or Artificial Opening Endoscopic, Diagnostic (ICD-10-PCS; principal; 2017-08-01 11:30)
PROC: 0DB98ZX Excision of Duodenum, Via Natural or Artificial Opening Endoscopic, Diagnostic (ICD-10-PCS; principal; 2017-08-01 11:30)
PROC: 0DB88ZX Excision of Small Intestine, Via Natural or Artificial Opening Endoscopic, Diagnostic (ICD-10-PCS; principal; 2017-08-01 11:30)
DX: R11.2 Nausea with vomiting, unspecified (principal); K29.60 Other gastritis without bleeding; K31.7 Polyp of stomach and duodenum
CPT/HCPCS: 36415; 80053; 82150; 83690; 85025; C9113; A4217; J2060; J3490; J7120

== ENCOUNTER 2017-08-07 16:47 | Observation (INO) | payer OTHER ==
[2017-08-07] MEDS ORDERED: NS 1000 ML 1,000 ML ONE (16:52)
[2017-08-07] MEDS ORDERED: MVI INJ (ADULT) IV ONE (16:53)
[2017-08-07] MEDS ORDERED: ZOFRAN INJ 4 MG VIAL IVP PRN (17:13)
[2017-08-07] MEDS: NS 1000 ML 1,000 ML with MVI INJ (ADULT) 10 ML IV SCH ×2 (17:14)
[2017-08-07] MEDS ORDERED: DECADRON INJ PRESERVATIVE-FREE IM ONE (17:14)
[2017-08-07] MEDS ORDERED: NS 100 ML IV 100 ML IV ONE (17:14)
[2017-08-07] MEDS ORDERED: ZOFRAN INJ 4 MG VIAL ONE (17:14)
[2017-08-07] MEDS ORDERED: ATIVAN INJ 2 MG VIAL ONE (17:15)
[2017-08-07] MEDS ORDERED: ZOFRAN INJ 4 MG VIAL 16 MG, ATIVAN INJ 2 MG VIAL 1 MG, DECADRON INJ 10 MG in NS 50 ML I... IV PRN (17:15)
[2017-08-07] MEDS: PROTONIX INJ 40 MG VIAL IVP SCH ×2 (17:28→20:57)
[2017-08-07 18:01] LABS: BASOPHILS % (AUTO) 0.7 % (0.2-1.0); EOSINOPHILS % (AUTO) 0.4 % (0.9-2.9); HEMATOCRIT 40.8 % (36.0-47.0); HEMOGLOBIN 14.1 g/dL (12.0-16.0); LYMPHOCYTES # (AUTO) 2.1 X10^3/uL (1.3-2.9); MEAN CORPUSCULAR HEMOGLOBIN 29.7 pg (27.0-34.0); MEAN CORPUSCULAR HGB CONC 34.5 g/dL (33.0-35.0); MEAN CORPUSCULAR VOLUME 86.1 fL (80.0-100.0); MEAN PLATELET VOLUME 8.4 fL (7.4-11.0); MONOCYTES # (AUTO) 0.4 x10^3/uL (0.3-0.8); MONOCYTES % (AUTO) 5.3 % (0.0-13.0); NEUTROPHILS # (AUTO) 4.6 x10^3/uL (2.2-4.8); NEUTROPHILS % (AUTO) 64.6 % (42.0-75.0); PLATELET COUNT 268 X10^3/uL (150.0-450.0); RED BLOOD COUNT 4.74 X10^6/uL (3.5-5.4); RED CELL DISTRIBUTION WIDTH 12.7 % (11.6-16.5); WHITE BLOOD COUNT 7.1 X10^3/uL (3.6-10.0)
[2017-08-07 18:14] LABS: ALANINE AMINOTRANSFERASE 44 Units/L (12-78); ALBUMIN 4.5 g/dL (3.4-5.0); ALKALINE PHOSPHATASE 103 Units/L (46-116); AMYLASE 24 Units/L (25-115); ASPARTATE AMINO TRANSFERASE 17 Units/L (15-37); BLOOD UREA NITROGEN 7 mg/dL (7-18); CALCIUM 9.3 mg/dL (8.5-10.1); CARBON DIOXIDE 29.1 mmol/L (21-32); CHLORIDE 104 mmol/L (98-107); CREATININE 0.78 mg/dL (0.55-1.02); LIPASE 110 Units/L (73-393); MAGNESIUM 2.3 mg/dL (1.7-2.9); SODIUM 142 mmol/L (136-145); eGFR BLACK RACES > 60 (>60); eGFR NON BLACK RACES > 60 (>60)
[2017-08-07] MEDS ORDERED: MAGNESIUM SULFATE 1 GM/100 mL PREMIX 1 GM/100 ML BAG IV PRN (18:28)
[2017-08-07] MEDS ORDERED: POTASSIUM CHL 60 MEQ/NS 0.45% 500 ML IV PRN (18:28)
[2017-08-07] MEDS ORDERED: K-LYTE EFFERVESCENT PO PRN (18:28)
[2017-08-07] MEDS ORDERED: POTASSIUM CHL 40 MEQ/NS 0.45% 500 ML IV PRN (18:28)
[2017-08-07] MEDS ORDERED: POTASSIUM CHLORIDE LIQ 20 MEQ UDC PO PRN (18:28)
[2017-08-07 19:14] LABS: FREE T4 (FREE THYROXINE) 0.93 ng/dL (0.76-1.46); TSH (3RD GENERATION) 0.886 uIU/mL (0.358-3.74)
[2017-08-07] MEDS: PHENERGAN INJ 25 MG IV PRN (19:24)
[2017-08-07] MEDS: K-RIDER 10 MEQ/NS 100 ML 10 MEQ/100 ML BAG IV PRN ×2 (20:05→21:59)
[2017-08-07 20:09] LABS: BILIRUBIN,URINE NEGATIVE (NEGATIVE); BLOOD/HEMOGLOBIN,URINE NEGATIVE (NEGATIVE); GLUCOSE, URINE NEGATIVE (NEGATIVE); KETONES,URINE 1+ (NEGATIVE); LEUKOCYTE ESTERASE ,URINE 1+ (NEGATIVE); NITRITES,URINE NEGATIVE (NEGATIVE); PROTEIN,URINE NEGATIVE (NEGATIVE); UROBILINOGEN,URINE NORMAL (NORMAL)
[2017-08-07 20:10] LABS: COLOR,URINE YELLOW (YELLOW)
[2017-08-07 20:11] LABS: APPEARANCE,URINE SLIGHTLY HAZY (CLEAR)
[2017-08-07 20:15] LABS: BACTERIA,URINE TRACE /HPF (NEGATIVE); MUCUS,URINE RARE /HPF (NEGATIVE); RBC,URINE 0-2 /HPF (NONE SEEN); SQUAMOUS EPITHELIAL CELL,UR RARE /HPF (NEGATIVE)
[2017-08-07] MEDS: AMBIEN PO PRN (20:57)
--- NOTE | 2017-08-07 21:59 | RAD ---
ACUTE ABDOMINAL SERIES CLINICAL HISTORY: 36-year-old female with abdominal pain, nausea and vomiting. COMPARISON: Acute abdominal series 07/11/2017. FINDINGS: ACDF is unchanged. PA chest radiograph demonstrates normal cardiopericardial silhouette. There is no focal consolidation , pleural effusion or pneumothorax. Pulmonary vascularity is normal. Abdominal radiographs demonstrate a nonobstructive bowel gas pattern. Gas and stool are seen througho ut the colon. There is no small bowel distention. There is no radiographic evidence of pneumoperitone um. IUD overlies the pelvis. Right upper quadrant surgical clips. Imaged osseous structures are intact. Scoliotic curvature is stable. Soft tissues are unremarkable. IMPRESSION: 1. No acute cardiopulmonary process. 2. Nonobstructive bowel gas pattern without radiographic evidence of pneumoperitoneum. Reported By:
[2017-08-08] MEDS ORDERED: NS 100 ML IV 100 ML IV ONE (00:34)
[2017-08-08] MEDS ORDERED: ZOFRAN INJ 4 MG VIAL ONE (00:34)
[2017-08-08] MEDS ORDERED: ATIVAN INJ 2 MG VIAL ONE (00:36)
[2017-08-08] MEDS: ZOFRAN INJ 4 MG VIAL 16 MG, ATIVAN INJ 2 MG VIAL 1 MG in NS 50 ML IV 50 ML IV PRN ×2 (01:04→10:26)
[2017-08-08] MEDS: NS 1000 ML 1,000 ML with MVI INJ (ADULT) 10 ML IV SCH ×4 (01:06→16:00)
[2017-08-08 05:36] LABS: BASOPHILS % (AUTO) 0.2 % (0.2-1.0); HEMATOCRIT 38.3 % (36.0-47.0); HEMOGLOBIN 13.4 g/dL (12.0-16.0); LYMPHOCYTES # (AUTO) 1.1 X10^3/uL (1.3-2.9); LYMPHOCYTES % (AUTO) 13.1 % (21.0-51.0); MEAN CORPUSCULAR HGB CONC 34.9 g/dL (33.0-35.0); MEAN CORPUSCULAR VOLUME 85.8 fL (80.0-100.0); MEAN PLATELET VOLUME 9.2 fL (7.4-11.0); MONOCYTES # (AUTO) 0.1 x10^3/uL (0.3-0.8); NEUTROPHILS # (AUTO) 7.4 x10^3/uL (2.2-4.8); NEUTROPHILS % (AUTO) 85.7 % (42.0-75.0); PLATELET COUNT 249 X10^3/uL (150.0-450.0); RED BLOOD COUNT 4.47 X10^6/uL (3.5-5.4); RED CELL DISTRIBUTION WIDTH 12.7 % (11.6-16.5); WHITE BLOOD COUNT 8.7 X10^3/uL (3.6-10.0)
[2017-08-08 05:52] LABS: ALANINE AMINOTRANSFERASE 37 Units/L (12-78); ALBUMIN 3.9 g/dL (3.4-5.0); ALKALINE PHOSPHATASE 94 Units/L (46-116); ASPARTATE AMINO TRANSFERASE 11 Units/L (15-37); BLOOD UREA NITROGEN 8 mg/dL (7-18); CARBON DIOXIDE 23.7 mmol/L (21-32); CHLORIDE 106 mmol/L (98-107); COR NA(FOR HYPERGLY) 141 mmol/L (136-145); CREATININE 0.73 mg/dL (0.55-1.02); SODIUM 140 mmol/L (136-145); TOTAL PROTEIN 7.1 g/dL (6.4-8.2); eGFR BLACK RACES > 60 (>60); eGFR NON BLACK RACES > 60 (>60)
[2017-08-08 07:16] VITALS: BMI 25.7
[2017-08-08] MEDS: PROTONIX INJ 40 MG VIAL IVP SCH ×2 (08:46→21:10)
--- NOTE | 2017-08-08 09:04 | DR.PROGNOT ---
Hospital Progress Notes - Progress Note for Day of: Progress Note Date: 08/08/17 - Chief Complaint Chief Complaint: feeling better today , no nausea or vomiting . no abdominal pain , - Past Medical Family Social History Past Med/Fam/Surg Hx: No changes since H&P Allergies: Allergies dexamethasone Adverse Reaction (Verified 07/25/17 09:27) morphine Adverse Reaction (Verified 07/25/17 09:27) - Review Of Systems ROS: No change since H&P - Vital Signs Vital Signs: Temperature 98 F Pulse Rate [Left Radial] 96 Respiratory Rate 18 Blood Pressure [Left Arm] 93/51 Blood Pressure [Right Arm] 130/67 Blood Pressure 115/79 O2 Sat by Pulse Oximetry 100 - Physical Exam Oriented: Normal Eyes: Normal Ear: Normal Nose: Normal Respiratory: Normal Cardiovascular: Normal : Normal GI:Auscultation: Normal GI:Palpation: Normal GI: Tenderness: Normal Skin: Normal Musculoskeletal: Normal Psychiatric: Normal Mood Description: Calm Speech Pattern: Clear, Appropriate - Laboratory and Diagnostics Result Diagrams: 08/08/17 04:54 08/08/17 04:54 Labs: Laboratory WBC 8.7 X10^3/uL (3.6-10.0) 08/08/17 04:54 RBC 4.47 X10^6/uL (3.5-5.4) 08/08/17 04:54 Hgb 13.4 g/dL (12.0-16.0) 08/08/17 04:54 Hct 38.3 % (36.0-47.0) 08/08/17 04:54 MCV 85.8 fL (80.0-100.0) 08/08/17 04:54 MCH 30.0 pg (27.0-34.0) 08/08/17 04:54 MCHC 34.9 g/dL (33.0-35.0) 08/08/17 04:54 RDW 12.7 % (11.6-16.5) 08/08/17 04:54 Plt Count 249 X10^3/uL (150.0-450.0) 08/08/17 04:54 MPV 9.2 fL (7.4-11.0) 08/08/17 04:54 Neut % (Auto) 85.7 % (42.0-75.0) H 08/08/17 04:54 Lymph % (Auto) 13.1 % (21.0-51.0) L 08/08/17 04:54 Love % (Auto) 1.0 % (0.0-13.0) 08/08/17 04:54 Eos % (Auto) 0.0 % (0.9-2.9) L 08/08/17 04:54 Baso % (Auto) 0.2 % (0.2-1.0) 08/08/17 04:54 Neut # (Auto) 7.4 x10^3/uL (2.2-4.8) H 08/08/17 04:54 Lymph # (Auto) 1.1 X10^3/uL (1.3-2.9) L 08/08/17 04:54 Love # (Auto) 0.1 x10^3/uL (0.3-0.8) L 08/08/17 04:54 Eos # (Auto) 0.0 x10^3/uL (0.0-0.2) 08/08/17 04:54 Baso # (Auto) 0.0 X10^3/uL (0.0-0.1) 08/08/17 04:54 Absolute Nucleated RBC 0.0 /100WBC 08/08/17 04:54 Sodium 140 mmol/L (136-145) 08/08/17 04:54 Corrected Sodium 141 mmol/L (136-145) 08/08/17 04:54 Potassium 4.0 mmol/L (3.5-5.1) 08/08/17 04:54 Chloride 106 mmol/L (98-107) 08/08/17 04:54 Carbon Dioxide 23.7 mmol/L (21-32) 08/08/17 04:54 BUN 8 mg/dL (7-18) 08/08/17 04:54 Creatinine 0.73 mg/dL (0.55-1.02) 08/08/17 04:54 Est GFR (MDRD) Af Amer > 60 (>60) 08/08/17 04:54 Est GFR (MDRD) Non-Af > 60 (>60) 08/08/17 04:54 Glucose 133 mg/dL (65-99) H 08/08/17 04:54 Calcium 9.0 mg/dL (8.5-10.1) 08/08/17 04:54 Corrected Calcium TNP 08/08/17 04:54 Magnesium 2.3 mg/dL (1.7-2.9) 08/07/17 17:49 Total Bilirubin 0.30 mg/dL (0.2-1.0) 08/08/17 04:54 AST 11 Units/L (15-37) L 08/08/17 04:54 ALT 37 Units/L (12-78) 08/08/17 04:54 Alkaline Phosphatase 94 Units/L (46-116) 08/08/17 04:54 Total Protein 7.1 g/dL (6.4-8.2) 08/08/17 04:54 Albumin 3.9 g/dL (3.4-5.0) 08/08/17 04:54 Globulin 3.2 g/dL (2.5-4.5) 08/08/17 04:54 Albumin/Globulin Ratio 1.2 Ratio (1.1-2.1) 08/08/17 04:54 Amylase 24 Units/L (25-115) L 08/07/17 17:49 Lipase 110 Units/L (73-393) 08/07/17 17:49 Free T4 0.93 ng/dL (0.76-1.46) 08/07/17 17:49 Free T3 pg/dL Cancelled 08/07/17 17:49 T3 Uptake 32.0 % (30-40) 08/07/17 17:49 TSH 3rd Generation 0.886 uIU/mL (0.358-3.74) 08/07/17 17:49 Specimen Type Clean catch urine 08/07/17 19:55 Urine Color Yellow (YELLOW) 08/07/17 19:55 Urine Appearance Slightly hazy (CLEAR) 08/07/17 19:55 Urine pH 8.0 (5.0 - 8.0) 08/07/17 19:55 Ur Specific [place] 1.015 (1.000-1.030) 08/07/17 19:55 Urine Protein Negative (NEGATIVE) 08/07/17 19:55 Urine Glucose (UA) Negative (NEGATIVE) 08/07/17 19:55 Urine Ketones 1+ (NEGATIVE) 08/07/17 19:55 Urine Occult Blood Negative (NEGATIVE) 08/07/17 19:55 Urine Nitrite Negative (NEGATIVE) 08/07/17 19:55 Urine Bilirubin Negative (NEGATIVE) 08/07/17 19:55 Urine Urobilinogen Normal (NORMAL) 08/07/17 19:55 Ur Leukocyte Esterase 1+ (NEGATIVE) 08/07/17 19:55 Urine RBC 0-2 /HPF (NONE SEEN) 08/07/17 19:55 Urine WBC 0-2 /HPF (NONE SEEN) 08/07/17 19:55 Ur Squamous Epith Cells Rare /HPF (NEGATIVE) 08/07/17 19:55 Urine Bacteria Trace /HPF (NEGATIVE) 08/07/17 19:55 Urine Mucus Rare /HPF (NEGATIVE) 08/07/17 19:55 Ur Culture Indicated? No/not indicated 08/07/17 19:55 - Assessment and Plan 1: cyclic vomiting ,. gastritis . S/P Lap Michelle. same Ativan, Protonix, and Zofran .. will follow in 2 weeks
[2017-08-08] MEDS: PHENERGAN INJ 25 MG IV PRN ×2 (10:23→16:01)
--- NOTE | 2017-08-08 13:02 | DR.H&P ---
H&P - History & Physical for Day of: H&P Date: 08/07/17 - Chief Complaint Chief Complaint: INTRACTABLE N/V, DEHYDRATION - Allergies Allergies/Adverse Reactions: Allergies Allergy/AdvReac Type Severity Reaction Status Date / Time dexamethasone AdvReac Verified 07/25/17 09:27 morphine AdvReac Verified 07/25/17 09:27 - Past Medical History Past Medical History: Arthritis, GERD - Past Surgical History Surgical History: , Cholecystectomy, Tonsillectomy, Other - Family History Family Medical History: Diabetes Mellitus, Cancer, [place] - Social History Does patient currently use any type of tobacco product: No Have you used tobacco products in the last 12 months: No Type of Tobacco Use: None Does any household member use tobacco: No Alcohol Use: None Drug Use: Prescription Drugs - Medications Home Medications: Liothyronine Sodium [Cytomel] 5 mcg PO DAILY 08/07/17 [History Confirmed ] Lorazepam [ATIVAN 1 MG TAB *] 1 tab PO BID 08/07/17 [History Confirmed 08/07/17] Ondansetron [Zofran ODT 8 mg] 8 mg PO Q6HR PRN 08/07/17 [History Confirmed 08/07] Pantoprazole Sodium 40 mg [PROTONIX 40 MG *] 1 tab PO DAILY 08/07/17 [History Confirmed 08/07/17] Promethazine HCl [PHENERGAN TAB 25 MG *] 25 mg PO Q4H PRN 08/07/17 [History Confirmed 08/07/17] Zolpidem Tartrate [Ambien Cr] 1 tab PO HS PRN 08/07/17 [History Confirmed ] - Review of Systems Constitutional: Weakness Eyes: No Symptoms Reported ENT: No Symptoms Reported Respiratory: No Symptoms Reported Cardiovascular: No Symptoms Reported Gastrointestinal: Nausea, Vomiting, Abdominal Pain. denies: Diarrhea, Constipation Genitourinary: No Symptoms Reported Musculoskeletal: Neck Pain Skin: No Symptoms Reported Neurological: No Symptoms Reported - Physical Exam Vital Signs: Temperature 98.9 F Pulse Rate [Left Radial] 115 Respiratory Rate 20 Blood Pressure [Left Arm] 115/55 Blood Pressure [Right Arm] 130/67 Blood Pressure 115/79 O2 Sat by Pulse Oximetry 98 Oriented: Normal Eyes: Normal Ear: Normal, Left Nose: Normal Throat: Normal Respiratory: RLL Diminished, LLL Diminished Cardiovascular: Normal Auscultation: Bowel Sounds: Increased Palpation: Normal Tenderness: RUQ, Epigastric, Periumbilical Skin: Decreased Turgur Musculoskeletal: Normal Psychiatric: Normal Mood Description: Calm Speech Pattern: Clear, Appropriate - Assessment/Plan (1) Intractable nausea and vomiting Status: Acute Plan: IV HYDRATION, CLEAR LIQUIS. PAIN AND NAUSEA CONTROL. PPI, CBC CMP UA. MAG ON ADMISSION (2) Non-intractable cyclical vomiting without nausea Status: Acute (3) Gastroenteritis Status: Acute (4) Hypokalemia Status: Acute (5) Dehydration Status: Acute
--- NOTE | 2017-08-08 13:13 | PCM.PROG ---
Progress Note - Progress Note for Day of Date: 08/08/17 - Subjective Subjective: 36 WF ADMITTED ONE DAY AGO WITH INTRACTABLE N/V AND EPIGASTRIC PAIN. PT S/P LAP DEEPTHI AND HAD EGD PER DR PICKERING. PT CURRENTLY ON IV FLUIDS FOR HYDRATION, PAIN AND NAUSEA CONTROL, PT HAS IMPROVED NAUSEA AND VOMITING AND PLAN TO ADVANCE DIET AND REPEAT AM LABS. - Past Medical Family Social History Past Med/Fam/Surg Hx: No changes since H&P Allergies: Allergies dexamethasone Adverse Reaction (Verified 07/25/17 09:27) morphine Adverse Reaction (Verified 07/25/17 09:27) - Review of Systems ROS: No change since H&P - Vital Signs and I&O's Vital Signs: Temperature 98.9 F Pulse Rate [Left Radial] 115 Respiratory Rate 20 Blood Pressure [Left Arm] 115/55 Blood Pressure [Right Arm] 130/67 Blood Pressure 115/79 O2 Sat by Pulse Oximetry 98 Intake and Output: Intake & Output 08/06/17 08/07/17 08/08/17 08/09/17 11:59 11:59 11:59 11:59 Intake Total 1880 Balance 1880 - Physical Exam Oriented: Normal Eyes: Normal Ear: Normal, Left Nose: Normal Throat: Normal Respiratory: Normal Cardiovascular: Normal : Normal Auscultation: Bowel Sounds: Increased Tenderness: RUQ, Epigastric, Periumbilical Skin: Decreased Turgur Musculoskeletal: Normal Psychiatric: Normal Mood Description: Calm Speech Pattern: Clear, Appropriate - Laboratory and Diagnostics Result Diagrams: 08/08/17 04:54 08/08/17 04:54 Labs: Laboratory WBC 8.7 X10^3/uL (3.6-10.0) 08/08/17 04:54 RBC 4.47 X10^6/uL (3.5-5.4) 08/08/17 04:54 Hgb 13.4 g/dL (12.0-16.0) 08/08/17 04:54 Hct 38.3 % (36.0-47.0) 08/08/17 04:54 MCV 85.8 fL (80.0-100.0) 08/08/17 04:54 MCH 30.0 pg (27.0-34.0) 08/08/17 04:54 MCHC 34.9 g/dL (33.0-35.0) 08/08/17 04:54 RDW 12.7 % (11.6-16.5) 08/08/17 04:54 Plt Count 249 X10^3/uL (150.0-450.0) 08/08/17 04:54 MPV 9.2 fL (7.4-11.0) 08/08/17 04:54 Neut % (Auto) 85.7 % (42.0-75.0) H 08/08/17 04:54 Lymph % (Auto) 13.1 % (21.0-51.0) L 08/08/17 04:54 [place] % (Auto) 1.0 % (0.0-13.0) 08/08/17 04:54 Eos % (Auto) 0.0 % (0.9-2.9) L 08/08/17 04:54 Baso % (Auto) 0.2 % (0.2-1.0) 08/08/17 04:54 Neut # (Auto) 7.4 x10^3/uL (2.2-4.8) H 08/08/17 04:54 Lymph # (Auto) 1.1 X10^3/uL (1.3-2.9) L 08/08/17 04:54 [place] # (Auto) 0.1 x10^3/uL (0.3-0.8) L 08/08/17 04:54 Eos # (Auto) 0.0 x10^3/uL (0.0-0.2) 08/08/17 04:54 Baso # (Auto) 0.0 X10^3/uL (0.0-0.1) 08/08/17 04:54 Absolute Nucleated RBC 0.0 /100WBC 08/08/17 04:54 Sodium 140 mmol/L (136-145) 08/08/17 04:54 Corrected Sodium 141 mmol/L (136-145) 08/08/17 04:54 Potassium 4.0 mmol/L (3.5-5.1) 08/08/17 04:54 Chloride 106 mmol/L (98-107) 08/08/17 04:54 Carbon Dioxide 23.7 mmol/L (21-32) 08/08/17 04:54 BUN 8 mg/dL (7-18) 08/08/17 04:54 Creatinine 0.73 mg/dL (0.55-1.02) 08/08/17 04:54 Est GFR (MDRD) Af Amer > 60 (>60) 08/08/17 04:54 Est GFR (MDRD) Non-Af > 60 (>60) 08/08/17 04:54 Glucose 133 mg/dL (65-99) H 08/08/17 04:54 Calcium 9.0 mg/dL (8.5-10.1) 08/08/17 04:54 Corrected Calcium TNP 08/08/17 04:54 Magnesium 2.3 mg/dL (1.7-2.9) 08/07/17 17:49 Total Bilirubin 0.30 mg/dL (0.2-1.0) 08/08/17 04:54 AST 11 Units/L (15-37) L 08/08/17 04:54 ALT 37 Units/L (12-78) 08/08/17 04:54 Alkaline Phosphatase 94 Units/L (46-116) 08/08/17 04:54 Total Protein 7.1 g/dL (6.4-8.2) 08/08/17 04:54 Albumin 3.9 g/dL (3.4-5.0) 08/08/17 04:54 Globulin 3.2 g/dL (2.5-4.5) 08/08/17 04:54 Albumin/Globulin Ratio 1.2 Ratio (1.1-2.1) 08/08/17 04:54 Amylase 24 Units/L (25-115) L 08/07/17 17:49 Lipase 110 Units/L (73-393) 08/07/17 17:49 Free T4 0.93 ng/dL (0.76-1.46) 08/07/17 17:49 Free T3 pg/dL Cancelled 08/07/17 17:49 T3 Uptake 32.0 % (30-40) 08/07/17 17:49 TSH 3rd Generation 0.886 uIU/mL (0.358-3.74) 08/07/17 17:49 Specimen Type Clean catch urine 08/07/17 19:55 Urine Color Yellow (YELLOW) 08/07/17 19:55 Urine Appearance Slightly hazy (CLEAR) 08/07/17 19:55 Urine pH 8.0 (5.0 - 8.0) 08/07/17 19:55 Ur Specific [place] 1.015 (1.000-1.030) 08/07/17 19:55 Urine Protein Negative (NEGATIVE) 08/07/17 19:55 Urine Glucose (UA) Negative (NEGATIVE) 08/07/17 19:55 Urine Ketones 1+ (NEGATIVE) 08/07/17 19:55 Urine Occult Blood Negative (NEGATIVE) 08/07/17 19:55 Urine Nitrite Negative (NEGATIVE) 08/07/17 19:55 Urine Bilirubin Negative (NEGATIVE) 08/07/17 19:55 Urine Urobilinogen Normal (NORMAL) 08/07/17 19:55 Ur Leukocyte Esterase 1+ (NEGATIVE) 08/07/17 19:55 Urine RBC 0-2 /HPF (NONE SEEN) 08/07/17 19:55 Urine WBC 0-2 /HPF (NONE SEEN) 08/07/17 19:55 Ur Squamous Epith Cells Rare /HPF (NEGATIVE) 08/07/17 19:55 Urine Bacteria Trace /HPF (NEGATIVE) 08/07/17 19:55 Urine Mucus Rare /HPF (NEGATIVE) 08/07/17 19:55 Ur Culture Indicated? No/not indicated 08/07/17 19:55 - Plan (1) Intractable nausea and vomiting Status: Acute Plan: IV HYDRATION, ADVANCE DIET. PAIN AND NAUSEA CONTROL. PPI, CBC CMP UA. MAG ON ADMISSION (2) Non-intractable cyclical vomiting without nausea Status: Acute Plan: PRN ATIVAN (3) Gastroenteritis Status: Acute (4) Hypokalemia Status: Acute (5) Dehydration Status: Acute
[2017-08-08] MEDS ORDERED: NORCO 5/325 MG TAB PO PRN (16:04)
--- NOTE | 2017-08-08 17:38 | DR.CONSULT ---
Consult - Consultation for Day of: Date: 08/08/17 - Chief Complaint Chief Complaint: Patient referred for intractable nausea and vomiting. [place] with complaints of dyspepsia, belching, nausea, vomiting. - Allergies Allergies/Adverse Reactions: Allergies Allergy/AdvReac Type Severity Reaction Status Date / Time dexamethasone AdvReac Verified 07/25/17 09:27 morphine AdvReac Verified 07/25/17 09:27 - History of Present Illness History of Present Illness: Patient is a 36yo female who was referred for intractable nausea and vomiting. Pat[place] with complaints of dyspepsia, belching , nausea, vomiting that has been going on for 1 month. Patient denies dysphagia , abdominal pain, constipation, melena nad hematochezia. She had a lapchole on and EGd on 08/01/17 which showed gastritis and gastric polyps which were benign on pathology. she has never had a colonoscopy. Patient was seen in the office as outpatient on 08/07/17 gastric emptying scan was ordered. - Past Medical History Past Medical History: Arthritis, GERD, Hypothyroidism - Past Surgical History Surgical History: , Cholecystectomy, Tonsillectomy, Other Additional Surgical History: Neck surgery x2 - Family History Family Medical History: Diabetes Mellitus, Cancer, [place] - Social History Does patient currently use any type of tobacco product: No Have you used tobacco products in the last 12 months: No Type of Tobacco Use: None Does any household member use tobacco: No Alcohol Use: None Drug Use: Prescription Drugs - Medications Home Medications: Liothyronine Sodium [Cytomel] 5 mcg PO DAILY 08/07/17 [History Confirmed ] Lorazepam [ATIVAN 1 MG TAB *] 1 tab PO BID 08/07/17 [History Confirmed 08/07/17] Ondansetron [Zofran ODT 8 mg] 8 mg PO Q6HR PRN 08/07/17 [History Confirmed 08/07] Pantoprazole Sodium 40 mg [PROTONIX 40 MG *] 1 tab PO DAILY 08/07/17 [History Confirmed 08/07/17] Promethazine HCl [PHENERGAN TAB 25 MG *] 25 mg PO Q4H PRN 08/07/17 [History Confirmed 08/07/17] Zolpidem Tartrate [Ambien Cr] 1 tab PO HS PRN 04/24/18 [History Confirmed ] - Review of Systems Constitutional: Weakness Eyes: No Symptoms Reported ENT: No Symptoms Reported Respiratory: No Symptoms Reported Cardiovascular: No Symptoms Reported Gastrointestinal: See HPI, Nausea, Vomiting, Other (dyspepsia, belching) Genitourinary: No Symptoms Reported Musculoskeletal: No Symptoms Reported Skin: No Symptoms Reported Neurological: No Symptoms Reported - Physical Exam Vital Signs: Temperature 98.4 F Pulse Rate [Left Radial] 101 Respiratory Rate 18 Blood Pressure [Left Arm] 97/54 Blood Pressure [Right Arm] 130/67 Blood Pressure 115/79 O2 Sat by Pulse Oximetry 93 Oriented: Normal Eyes: Normal Ear: Normal Nose: Normal Throat: Normal Respiratory: Clear Throughout Cardiovascular: Normal Auscultation: Bowel Sounds: Increased Palpation: Normal, Other (no distention). negative: Spleen Enlarged, Liver Enlarged, Mass Pulsatile Tenderness: Normal Skin: Normal Musculoskeletal: Normal Psychiatric: Normal Mood Description: Calm Affect: Normal Speech Pattern: Clear, Appropriate - Plan Plan: Assessment. 1. N/V due to cyclic vomiting vs gastroparesis. 2. GERD. Plan. 1. Cont IV Protonix, and zofran cocktail, Gastric empying study. Plan reviewed with Dr. Alonzo
[2017-08-08] MEDS: ATIVAN TAB 1 MG PO SCH (21:10)
[2017-08-08] MEDS: AMBIEN PO PRN (21:10)
[2017-08-09] MEDS: NS 1000 ML 1,000 ML with MVI INJ (ADULT) 10 ML IV SCH ×2 (03:23)
[2017-08-09] MEDS: PHENERGAN INJ 25 MG IV PRN ×2 (04:21→11:08)
[2017-08-09 06:14] LABS: BASOPHILS % (AUTO) 0.1 % (0.2-1.0); HEMATOCRIT 33.9 % (36.0-47.0); HEMOGLOBIN 11.5 g/dL (12.0-16.0); LYMPHOCYTES # (AUTO) 1.7 X10^3/uL (1.3-2.9); LYMPHOCYTES % (AUTO) 13.5 % (21.0-51.0); MEAN CORPUSCULAR HEMOGLOBIN 29.5 pg (27.0-34.0); MEAN CORPUSCULAR HGB CONC 33.9 g/dL (33.0-35.0); MEAN PLATELET VOLUME 9.1 fL (7.4-11.0); MONOCYTES # (AUTO) 0.7 x10^3/uL (0.3-0.8); MONOCYTES % (AUTO) 5.9 % (0.0-13.0); NEUTROPHILS # (AUTO) 10.2 x10^3/uL (2.2-4.8); NEUTROPHILS % (AUTO) 80.5 % (42.0-75.0); PLATELET COUNT 226 X10^3/uL (150.0-450.0); RED BLOOD COUNT 3.89 X10^6/uL (3.5-5.4); RED CELL DISTRIBUTION WIDTH 13.2 % (11.6-16.5); WHITE BLOOD COUNT 12.6 X10^3/uL (3.6-10.0)
[2017-08-09 06:46] LABS: ALANINE AMINOTRANSFERASE 31 Units/L (12-78); ALBUMIN 3.3 g/dL (3.4-5.0); ALKALINE PHOSPHATASE 75 Units/L (46-116); ASPARTATE AMINO TRANSFERASE 9 Units/L (15-37); BLOOD UREA NITROGEN 13 mg/dL (7-18); CALCIUM 8.3 mg/dL (8.5-10.1); CARBON DIOXIDE 21.1 mmol/L (21-32); CHLORIDE 111 mmol/L (98-107); COR CA(FOR HYPOALB) 8.9 mg/dL (8.5-10.1); COR NA(FOR HYPERGLY) 145 mmol/L (136-145); CREATININE 0.86 mg/dL (0.55-1.02); SODIUM 144 mmol/L (136-145); eGFR BLACK RACES > 60 (>60); eGFR NON BLACK RACES > 60 (>60)
[2017-08-09] MEDS ORDERED: MICRO K EXTEN CAP 10 MEQ PO ONE ×2 (07:28→07:42)
[2017-08-09] MEDS: PROTONIX INJ 40 MG VIAL IVP SCH ×2 (07:34→08:45)
[2017-08-09] MEDS: ATIVAN TAB 1 MG PO SCH ×2 (07:34→08:45)
[2017-08-09 11:56] VITALS: BP 105/59
== END 2017-08-09 12:45 | disposition home or self-care (01) ==
LOC: MED/SURG 16:47
PROVIDERS: ADMIT Internal Medicine; ATTEND Internal Medicine
DX: R11.2 Nausea with vomiting, unspecified (principal); G43.A0 Cyclical vomiting, in migraine, not intractable; E86.0 Dehydration; R10.84 Generalized abdominal pain; R10.13 Epigastric pain; K52.89 Other specified noninfective gastroenteritis and colitis; M19.90 Unspecified osteoarthritis, unspecified site; E87.6 Hypokalemia; K21.9 Gastro-esophageal reflux disease without esophagitis; M50.30 Other cervical disc degeneration, unspecified cervical region; Z98.890 Other specified postprocedural states; Z90.49 Acquired absence of other specified parts of digestive tract; K29.60 Other gastritis without bleeding; G47.09 Other insomnia
CPT/HCPCS: 36415; 74022; 80053; 81001; 82150; 83690; 83735; 84132; 84439; 84443; 84479; 85025; A4222; C9113; G0378; J1100; J2060; J2405; J2550; J3480

== ENCOUNTER 2018-11-14 20:20 | Inpatient (IN) ==
[2018-11-14 20:32] VITALS: BMI 30.9
--- NOTE | 2018-11-14 20:49 | DR.DIZZY ---
HPI Time seen Time Seen by Provider: 11/14/18 20:46 PCP Primary Care Physician: Ephraim HUERTAS HPI Comment HPI Comment: PATIENT IS 38YRS OLD WHITE FEMALE IN ED WITH GENERALIZE WEAKNESS, BODYACHES AND CHILL FOR 4 DAYS, WORSE TODAY. PATIENT IS BEING VOMITING. PATIENT SAID HER ATIVAN WAS CHANGE TO XANAX RECENTLY. SHE IS BEING WEAN OFF ATIVAN. SHE IS ALSO HAVE SLURRED SPEECH AND HER TONGUE FEEL SWOLLEN. Complaint Chief Complaint Doctor Comments: GENERALIZE WEAKNESS AND DIZZINESS TIMES 4 DAYS. Chief Complaint:: " N/V, SHAKES, BODY ACHES, WEAKNESS. TRYING TO COME OFF OF MEDICATION SINCE SUNDAY THAT SHE HAS BEEN ON AND NOT SURE IF THAT HAS SOMETHING TO DO WITH. SLURRED SPEECH, THICK TONGUE, DRY MOUTH." Nurses Notes Reviewed Nurses Notes Review: Yes Source History Provided: Patient Mode of Arrival Mode of Arrival: Wheelchair Timing Onset of Chief Complaint: 11/17/18 Came on: Suddenly Duration Duration: Constant Duration: Days Location of Weakness Weakness Location: Generalized Context Onset: At rest History of: Electrolyte Disorder (CYCLICAL VOMITING SYNDROME.) Stroke Symptoms: Slurring and Dizziness Severity Severity: Abnormal activity level Associated signs and symptoms Associated Signs and Symptoms: Weak, Fever, Headache, Nausea and Vomiting PMH PMH Past Medical History: Yes Past Medical History: Arthritis, GERD and Hypothyroidism Past Surgical History: Yes Surgical History: , Cholecystectomy and Tonsillectomy Family History History of Family Medical Conditions: Yes Family Medical History: Diabetes Mellitus, Cancer and [place] Social History Alcohol Use: None Do you use any recreational Drugs:: No infectious screening Have you traveled outside the country in the last 6 months?: No Isolation: Standard ROS Review of Systems Constitutional: No Symptoms Reported, See HPI, Chills, Fever, Weakness, Fatigue and Loss of Appetite Eyes: No Symptoms Reported and See HPI; negative Eye Pain, Blurred Vision, Photophobia and Diplopia ENTM: No Symptoms Reported, See HPI and Throat Swelling; negative Ear Pain, Nose Discharge, Nose Congestion and Throat Pain (TONGUE FEEL SWOLLEN.) Respiratoy: See HPI, Non-Productive Cough and Short of Breath (ON DEEP BREATHING.); negative Wheezing Cardiovascular: No Symptoms Reported, See HPI, Edema (FACIAL EDEMA.) and Palpitations; negative Chest Pain Gastrointestinal/Abdominal: No Symptoms Reported, See HPI, Abdominal Pain, Jeannie rrhea, Nausea and Vomiting Genitourinary: No Symptoms Reported and See HPI; negative Dysuria, Frequency and Hematuria Neurological: No Symptoms Reported, See HPI, Headache, Weakness and Dizziness Musculoskeletal: No Symptoms Reported, See HPI, Back Pain and Muscle Pain Integumentary: No Symptoms Reported, See HPI and Juandice; negative Change in Color and Rash Hematologic/Lymphatic: No Symptoms Reported and See HPI; negative Easy Bruising and Swollen Glands Endocrine: No Symptoms Reported and See HPI; negative Increased Thirst and Increased Urine Psychiatric: No Symptoms Reported and See HPI All Other Systems: Reviewed and Negative PE Vital Signs Vitals: Temperature 97.9 F Pulse Rate [Apical] 111 Pulse Rate 137 Respiratory Rate 25 Blood Pressure [Left Arm] 98/59 Blood Pressure [Right Arm] 120/55 Blood Pressure 92/51 O2 Sat by Pulse Oximetry 100 General Limitations: No Limitations and Other (DYSARTHRIA) General Appearance: Alert and In No Apparent Distress Head Head Exam: Normal Inspection and Atraumatic Eyes Eye exam: Normal Appearance and PERRL; negative Scleral Icterus and Conjunctival Injection Pupils: Regular, Round: Bilateral and Reactive: Bilateral Sclera/Conjunctival: Normal Inspection: Bilateral ENT ENT Exam: Normal Exam, Normal External Ear Exam and TM's Normal Bilaterally; negative Normal Oropharynx (THROAT FEEL SWOLLEN.) Neck Neck Exam: Normal Inspection and Trachea Midline; negative Tenderness and Ly mphadenopathy Chest Chest Inspection: Normal Inspection and Symmetric Chest Wall Rise; negative Tenderness Respiratory Respiratory Exam: Normal Lung Sounds Bilat; negative Accessory Muscle Use, Chest Wall Tenderness and Respiratory Distress Respiratory Exam: Bilateral: Clear to Auscultation Cardiovascular Cardiovascular Exam: Tachycardia and Normal Heart Sounds; negative Systolic Murmur and Diastolic Murmur Abdominal Exam Abdominal Exam: Normal Inspection, Normal Bowel Sounds and Soft; negative Tenderness Rectal Rectal Exam: Deferred Extremeties Extremities Exam: Normal Inspection, Full ROM, Normal Capillary Refill and Edema; negative Tenderness and Calf Tenderness Back Back Exam: Full ROM; negative Tenderness, Paraspinal Tenderness and Vertebral Tenderness Neurologic Neurological Exam: Alert, Oriented X3 and CN II-XII Intact; negative Motor Sensory Deficit Cranial Nerve Exam: EOM Function (II, III, IV, ): Normal, Facial Sensation (V): Normal, Facial Palsy (VII): Normal, Gag reflex (XI): Normal, Spinal Accessory Function (XI): Normal and Tongue Deviation: Normal Cerebellar Function: Normal Gait Motor Strength - LUE: 5/5 Motor Strength - RUE: 5/5 Motor Strength - LLE: 5/5 Motor Strength - RLE: 5/5 Upper Motor Neuron Exam: Babinski Sign: Normal Psychiatric Psychiatric Exam: Normal Affect and Normal Mood Skin Skin Exam: Dry MDM Differential Diagnosis Differential Diagnosis: Anemia, CVA, Dehydration, Dysrhythmia, Electrolyte disorder, TIA and Central Vertigo COURSE Treatment Treatment: SEE ORDERS. NS 1L IV BOLUS. ZOSYN 3.375G IVBB. NS 1L IV BOLUS. Consultation Consultation Comments: DISCUSS PATIENT WITH DR. BAEZ. HE WILL ADMIT PATIENT. ADMIT ORDERS DONE. Education/Counseling Education/Counseling: Patient Educated On: Diagnosis ROR Labs Reviewed Laboratory Results Reviewed?: Yes Result Diagrams: 11/15/18 06:05 11/15/18 06:05 Laboratory: WBC 5.1 X10^3/uL (3.6-10.0) 11/15/18 06:05 RBC 4.04 X10^6/uL (3.5-5.4) 11/15/18 06:05 Hgb 11.7 g/dL (12.0-16.0) L 11/15/18 06:05 Hct 35.2 % (36.0-47.0) L 11/15/18 06:05 MCV 87.0 fL (80.0-100.0) 11/15/18 06:05 MCH 29.0 pg (27.0-34.0) 11/15/18 06:05 MCHC 33.4 g/dL (33.0-35.0) 11/15/18 06:05 RDW 16.5 % (11.6-16.5) 11/15/18 06:05 Plt Count 83 X10^3/uL (150.0-450.0) L 11/15/18 06:05 Plt Count Comment Decreased (ADEQUATE) A 11/15/18 06:05 MPV 10.5 fL (7.4-11.0) 11/15/18 06:05 Neut % (Auto) 79.1 % (42.0-75.0) H 11/15/18 06:05 Lymph % (Auto) 9.2 % (21.0-51.0) L 11/15/18 06:05 [place] % (Auto) 9.6 % (0.0-13.0) 11/15/18 06:05 Eos % (Auto) 1.9 % (0.9-2.9) 11/15/18 06:05 Baso % (Auto) 0.2 % (0.2-1.0) 11/15/18 06:05 Neut # (Auto) 4.0 x10^3/uL (2.2-4.8) 11/15/18 06:05 Lymph # (Auto) 0.5 X10^3/uL (1.3-2.9) L 11/15/18 06:05 [place] # (Auto) 0.5 x10^3/uL (0.3-0.8) 11/15/18 06:05 Eos # (Auto) 0.1 x10^3/uL (0.0-0.2) 11/15/18 06:05 Baso # (Auto) 0.0 X10^3/uL (0.0-0.1) 11/15/18 06:05 Absolute Nucleated RBC 0.3 /100WBC 11/15/18 06:05 Total Counted 100 11/15/18 06:05 Neutrophils % (Manual) 61 % (39-76) 11/15/18 06:05 Band Neutrophils % 4 % (0-10) 11/15/18 06:05 Lymphocytes % (Manual) 33 % (13-43) 11/15/18 06:05 Monocytes % (Manual) 2 % (4-9) L 11/15/18 06:05 Eosinophils % (Manual) 2 % (0-6) 11/14/18 21:23 Plt Morphology Comment Normal (NORMAL) 11/15/18 06:05 RBC Morphology Normal (NORMAL) 11/15/18 06:05 INR Target Range - 11/15/18 06:05 INR 1.49 (0.8-1.3) H 11/15/18 06:05 APTT 28.0 SECONDS (22.9-36.5) 11/15/18 06:05 PTT Comment - 11/15/18 06:05 Sodium 138 mmol/L (136-145) 11/15/18 06:05 Corrected Sodium TNP 11/15/18 06:05 Potassium 4.0 mmol/L (3.5-5.1) 11/15/18 06:05 Chloride 106 mmol/L (98-107) 11/15/18 06:05 Carbon Dioxide 18.5 mmol/L (21-32) L 11/15/18 06:05 BUN 49 mg/dL (7-18) H 11/15/18 06:05 Creatinine 2.18 mg/dL (0.55-1.02) H 11/15/18 06:05 Est GFR (MDRD) Af Amer 32 (>60) L 11/15/18 06:05 Est GFR (MDRD) Non-Af 27 (>60) L 11/15/18 06:05 Glucose 98 mg/dL (65-99) 11/15/18 06:05 Hemoglobin A1c 5.4 % 11/14/18 21:23 Lactic Acid 1.2 mmol/L (0.4-2.0) 11/15/18 08:27 Calcium 7.3 mg/dL (8.5-10.1) L 11/15/18 06:05 Corrected Calcium 9.1 mg/dL (8.5-10.1) 11/15/18 06:05 Magnesium 2.2 mg/dL (1.7-2.9) 11/14/18 21:23 Total Bilirubin 1.00 mg/dL (0.2-1.0) 11/15/18 06:05 AST 40 Units/L (15-37) H 11/15/18 06:05 ALT 41 Units/L (12-78) 11/15/18 06:05 Alkaline Phosphatase 140 Units/L (46-116) H 11/15/18 06:05 Creatine Kinase 264 Units/L (26-192) H 11/14/18 21:23 CK-MB (CK-2) 1.1 ng/mL (0-4.0) 11/14/18 21:23 CK/CKMB % Calc 0.4 % (<4) 11/14/18 21:23 Troponin I < 0.02 ng/mL (0-1.5) 11/14/18 21:23 C-Reactive Protein 287.20 mg/L (0-3.0) H 11/14/18 21:23 Total Protein 5.4 g/dL (6.4-8.2) L 11/15/18 06:05 Albumin 1.8 g/dL (3.4-5.0) L 11/15/18 06:05 Globulin 3.6 g/dL (2.5-4.5) 11/15/18 06:05 Albumin/Globulin Ratio 0.5 Ratio (1.1-2.1) L 11/15/18 06:05 Prealbumin 4.6 mg/dL (18-35.7) L 11/15/18 08:27 Specimen Type Catherized urine 11/15/18 04:00 Urine Color Yellow (YELLOW) 11/15/18 04:00 Urine Appearance Slightly hazy (CLEAR) 11/15/18 04:00 Urine pH 5.0 (5.0 - 8.0) 11/15/18 04:00 Ur Specific [place] 1.010 (1.000-1.030) 11/15/18 04:00 Urine Protein 2+ (NEGATIVE) 11/15/18 04:00 Urine Glucose (UA) Negative (NEGATIVE) 11/15/18 04:00 Urine Ketones Negative (NEGATIVE) 11/15/18 04:00 Urine Occult Blood 2+ (NEGATIVE) 11/15/18 04:00 Urine Nitrite Negative (NEGATIVE) 11/15/18 04:00 Urine Bilirubin Negative (NEGATIVE) 11/15/18 04:00 Urine Urobilinogen Normal (NORMAL) 11/15/18 04:00 Ur Leukocyte Esterase Negative (NEGATIVE) 11/15/18 04:00 Urine RBC 10-20 /HPF (NONE SEEN) 11/15/18 04:00 Urine WBC 0-2 /HPF (NONE SEEN) 11/15/18 04:00 Ur Squamous Epith Cells Rare /HPF (NEGATIVE) 11/15/18 04:00 Amorphous Sediment 2+ /HPF (NEGATIVE) 11/15/18 04:00 Urine Bacteria Negative /HPF (NEGATIVE) 11/15/18 04:00 Ur Culture Indicated? No/not indicated 11/15/18 04:00 Urine Opiates Screen Negative (NEG=<300) 11/15/18 00:22 Urine Methadone Screen Negative (NEG=<300) 11/15/18 00:22 Ur Barbiturates Screen Negative (NEG=<200) 11/15/18 00:22 Ur Phencyclidine Scrn Negative (NEG=<25) 11/15/18 00:22 Ur Amphetamines Screen Negative (NEG=<1000) 11/15/18 00:22 U Benzodiazepines Scrn Positive (NEG=<200) A 11/15/18 00:22 Urine Cocaine Screen Negative (NEG=<300) 11/15/18 00:22 U Marijuana (THC) Screen Negative (NEG=<50) 11/15/18 00:22 Acetone, Semi-Quant Negative (NEGATIVE) 11/14/18 21:23 XRAY XRAY Interpreted by: Radiologist XRAY Findings: REPORT NOTED AND DISCUSS WITH PATIENT. EKG Rate: 123 [place]: Normal Rhythm: ST Block: None Hypertrophy: None ST: Nonsp Opioid Opioid Risk Tool Age (Atul box if 16-45): Yes Total: 1 Total Score Risk Category: Low Risk Copyright: Sanchez LR predicting aberrant behaviors Diagnosis Discharge Problem: Acute renal insufficiency, Acute dehydration, Acidosis Sepsis Qualifiers: Sepsis type: sepsis due to unspecified organism Sepsis acute organ dysfunction status: unspecified Qualified Code(s): A41.9 - Sepsis, unspecified organism Instructions Forms: Excuse From Work
[2018-11-14] MEDS ORDERED: NS 1000 ML 1,000 ML IV ONE ×2 (20:53→21:06)
[2018-11-14] MEDS ORDERED: NS 1000 ML 1,000 ML ONE (20:54)
[2018-11-14 21:35] LABS: BASOPHILS % (AUTO) 0.4 % (0.2-1.0); EOSINOPHILS # (AUTO) 0.1 x10^3/uL (0.0-0.2); EOSINOPHILS % (AUTO) 1.5 % (0.9-2.9); HEMATOCRIT 38.7 % (36.0-47.0); HEMOGLOBIN 12.9 g/dL (12.0-16.0); LYMPHOCYTES # (AUTO) 0.4 X10^3/uL (1.3-2.9); LYMPHOCYTES % (AUTO) 5.9 % (21.0-51.0); MEAN CORPUSCULAR HEMOGLOBIN 28.8 pg (27.0-34.0); MEAN CORPUSCULAR HGB CONC 33.3 g/dL (33.0-35.0); MEAN CORPUSCULAR VOLUME 86.4 fL (80.0-100.0); MEAN PLATELET VOLUME 11.6 fL (7.4-11.0); MONOCYTES # (AUTO) 0.5 x10^3/uL (0.3-0.8); MONOCYTES % (AUTO) 8.1 % (0.0-13.0); NEUTROPHILS # (AUTO) 5.7 x10^3/uL (2.2-4.8); NEUTROPHILS % (AUTO) 84.1 % (42.0-75.0); PLATELET COUNT 97 X10^3/uL (150.0-450.0); RED BLOOD COUNT 4.48 X10^6/uL (3.5-5.4); RED CELL DISTRIBUTION WIDTH 16.4 % (11.6-16.5); WHITE BLOOD COUNT 6.7 X10^3/uL (3.6-10.0)
[2018-11-14 21:51] LABS: BLOOD UREA NITROGEN 60 mg/dL (7-18); CALCIUM 8.8 mg/dL (8.5-10.1); CARBON DIOXIDE 16.6 mmol/L (21-32); CHLORIDE 97 mmol/L (98-107); COR NA(FOR HYPERGLY) 134 mmol/L (136-145); CREATININE 2.89 mg/dL (0.55-1.02); SODIUM 133 mmol/L (136-145); TROPONIN I < 0.02 ng/mL (0-1.5); eGFR NON BLACK RACES 19 (>60)
[2018-11-14 21:54] LABS: BAND NEUTROPHILS % 10 % (0-10); LACTIC ACID 2.5 mmol/L (0.4-2.0)
[2018-11-14 21:55] LABS: ALANINE AMINOTRANSFERASE 55 Units/L (12-78); ALBUMIN 2.3 g/dL (3.4-5.0); ALKALINE PHOSPHATASE 173 Units/L (46-116); ASPARTATE AMINO TRANSFERASE 46 Units/L (15-37); CKMB % 0.4 % (<4); COR CA(FOR HYPOALB) 10.2 mg/dL (8.5-10.1); CREATINE KINASE 264 Units/L (26-192); CREATINE KINASE MB 1.1 ng/mL (0-4.0); PLATELET MORPHOLOGY COMMENT NORMAL (NORMAL); TOTAL PROTEIN 6.6 g/dL (6.4-8.2)
[2018-11-14 22:34] LABS: HEMOGLOBIN A1C 5.4 %
[2018-11-14 22:36] LABS: SERUM ACETONE NEGATIVE (NEGATIVE)
[2018-11-14] MEDS ORDERED: ZOSYN VIAL 3.375 GRAMS 3.375 G in NS 100 ML IV + SPIKE MINIBAG* 100 ML IV ONE (23:00)
[2018-11-14] MEDS ORDERED: ZOSYN VIAL 3.375 GRAMS IV ONE (23:22)
[2018-11-14] MEDS ORDERED: NS 100 ML IV + SPIKE MINIBAG* 100 ML ONE (23:22)
[2018-11-14] MEDS ORDERED: D5W IV ONE (23:33)
[2018-11-14] MEDS ORDERED: VANCOMYCIN HCL IV ONE (23:33)
[2018-11-15] MEDS ORDERED: NS 1000 ML 1,000 ML ONE (00:39)
[2018-11-15 00:40] LABS: BILIRUBIN,URINE NEGATIVE (NEGATIVE); BLOOD/HEMOGLOBIN,URINE 2+ (NEGATIVE); GLUCOSE, URINE 1+ (NEGATIVE); KETONES,URINE NEGATIVE (NEGATIVE); LEUKOCYTE ESTERASE ,URINE 1+ (NEGATIVE); NITRITES,URINE NEGATIVE (NEGATIVE); PROTEIN,URINE 2+ (NEGATIVE); UROBILINOGEN,URINE 1+ (NORMAL)
[2018-11-15] MEDS ORDERED: ZOFRAN INJ 4 MG VIAL IVP PRN (00:41)
[2018-11-15] MEDS ORDERED: NS 1000 ML 1,000 ML IV ONE ×2 (00:45→08:27)
[2018-11-15 00:46] LABS: AMORPHOUS SEDIMENT,UR 3+ /HPF (NEGATIVE); APPEARANCE,URINE SLIGHTLY HAZY (CLEAR); BACTERIA,URINE TRACE /HPF (NEGATIVE); COLOR,URINE DARK YELLOW (YELLOW); SQUAMOUS EPITHELIAL CELL,UR RARE /HPF (NEGATIVE)
[2018-11-15] MEDS ORDERED: PHARMACY CONSULT - VANCOMYCIN XX SCH (01:00)
[2018-11-15] MEDS ORDERED: BENADRYL INJ 50 MG VIAL IVP ONE (01:14)
[2018-11-15] MEDS ORDERED: BENADRYL INJ 50 MG VIAL ONE (01:16)
[2018-11-15] MEDS ORDERED: VANCOMYCIN HCL 500 MG VIAL ONE (01:17)
[2018-11-15] MEDS ORDERED: NS 500 ML IV 0 ML ONE (01:18)
[2018-11-15] MEDS ORDERED: NS 250 ML IV 250 ML ONE (01:35)
[2018-11-15] MEDS ORDERED: AMBIEN ONE (01:48)
[2018-11-15] MEDS: NS + KCL 40 MEQ/L 1,000 ML IV SCH ×2 (02:00→06:49)
[2018-11-15] MEDS: AMBIEN PO PRN ×2 (02:02→21:28)
[2018-11-15] MEDS ORDERED: PERCOCET TAB 5/325 MG PO PRN (03:17)
[2018-11-15] MEDS ORDERED: NORCO 5/325 MG TAB ONE (03:23)
[2018-11-15] MEDS ORDERED: NORCO 5/325 MG TAB PO ONE (03:30)
[2018-11-15 05:10] LABS: BILIRUBIN,URINE NEGATIVE (NEGATIVE); BLOOD/HEMOGLOBIN,URINE 2+ (NEGATIVE); GLUCOSE, URINE NEGATIVE (NEGATIVE); KETONES,URINE NEGATIVE (NEGATIVE); LEUKOCYTE ESTERASE ,URINE NEGATIVE (NEGATIVE); NITRITES,URINE NEGATIVE (NEGATIVE); PROTEIN,URINE 2+ (NEGATIVE); UROBILINOGEN,URINE NORMAL (NORMAL)
[2018-11-15 05:49] LABS: AMORPHOUS SEDIMENT,UR 2+ /HPF (NEGATIVE); APPEARANCE,URINE SLIGHTLY HAZY (CLEAR); BACTERIA,URINE NEGATIVE /HPF (NEGATIVE); COLOR,URINE YELLOW (YELLOW); SQUAMOUS EPITHELIAL CELL,UR RARE /HPF (NEGATIVE)
[2018-11-15] MEDS ORDERED: ZOSYN VIAL 3.375 GRAMS 3.375 G in NS 100 ML IV + SPIKE MINIBAG* 100 ML IV SCH (06:00)
[2018-11-15 06:14] LABS: BASOPHILS % (AUTO) 0.2 % (0.2-1.0); EOSINOPHILS # (AUTO) 0.1 x10^3/uL (0.0-0.2); EOSINOPHILS % (AUTO) 1.9 % (0.9-2.9); HEMATOCRIT 35.2 % (36.0-47.0); HEMOGLOBIN 11.7 g/dL (12.0-16.0); LYMPHOCYTES # (AUTO) 0.5 X10^3/uL (1.3-2.9); LYMPHOCYTES % (AUTO) 9.2 % (21.0-51.0); MEAN CORPUSCULAR HGB CONC 33.4 g/dL (33.0-35.0); MEAN PLATELET VOLUME 10.5 fL (7.4-11.0); MONOCYTES # (AUTO) 0.5 x10^3/uL (0.3-0.8); MONOCYTES % (AUTO) 9.6 % (0.0-13.0); NEUTROPHILS % (AUTO) 79.1 % (42.0-75.0); PLATELET COUNT 83 X10^3/uL (150.0-450.0); RED BLOOD COUNT 4.04 X10^6/uL (3.5-5.4); RED CELL DISTRIBUTION WIDTH 16.5 % (11.6-16.5); WHITE BLOOD COUNT 5.1 X10^3/uL (3.6-10.0)
[2018-11-15 06:25] LABS: ALANINE AMINOTRANSFERASE 41 Units/L (12-78); ALBUMIN 1.8 g/dL (3.4-5.0); ALKALINE PHOSPHATASE 140 Units/L (46-116); ASPARTATE AMINO TRANSFERASE 40 Units/L (15-37); BLOOD UREA NITROGEN 49 mg/dL (7-18); CALCIUM 7.3 mg/dL (8.5-10.1); CARBON DIOXIDE 18.5 mmol/L (21-32); CHLORIDE 106 mmol/L (98-107); COR CA(FOR HYPOALB) 9.1 mg/dL (8.5-10.1); CREATININE 2.18 mg/dL (0.55-1.02); SODIUM 138 mmol/L (136-145); TOTAL PROTEIN 5.4 g/dL (6.4-8.2); eGFR NON BLACK RACES 27 (>60)
[2018-11-15 06:28] LABS: BAND NEUTROPHILS % 4 % (0-10)
[2018-11-15 06:29] LABS: PLATELET MORPHOLOGY COMMENT NORMAL (NORMAL)
[2018-11-15] MEDS: NS 1000 ML 1,000 ML IV SCH ×3 (06:39→19:57)
[2018-11-15] MEDS: NS 1000 ML 2,000 ML IV ONE ×2 (08:30→10:26)
[2018-11-15] MEDS: NS 1000 ML 1,000 ML IV ONE ×2 (09:26→14:15)
[2018-11-15] MEDS ORDERED: LEXAPRO ONE (09:27)
[2018-11-15] MEDS ORDERED: LEVAQUIN PREMIX IV 500 MG 500 MG/100 ML BAG ONE (09:28)
[2018-11-15] MEDS: LEXAPRO PO SCH (09:38)
[2018-11-15 10:25] LABS: RHEUMATOID FACTOR NEGATIVE (NEGATIVE)
[2018-11-15] MEDS: LEVAQUIN PREMIX IV 750 MG 750 MG/150 ML BAG IV SCH (11:10)
[2018-11-15] MEDS: TYLENOL 325 MG TAB PO PRN ×2 (11:25→18:37)
[2018-11-15] MEDS ORDERED: ALBUMIN HUMAN 25%- 100 ML 200 ML ONE (13:26)
[2018-11-15] MEDS: ALBUMIN HUMAN 25%- 100 ML 100 ML IV ONE ×2 (13:28→14:10)
[2018-11-15] MEDS: ROXICODONE TAB 5 MG PO PRN (13:28)
[2018-11-15] MEDS ORDERED: VANCOMYCIN HCL 1 GM VIAL 1 G in D5W 250 ML IV 250 ML IV SCH (21:00)
[2018-11-16] MEDS: NS 1000 ML 1,000 ML IV SCH (02:24)
[2018-11-16] MEDS: ROXICODONE TAB 5 MG PO PRN (02:38)
[2018-11-16] MEDS: TYLENOL 325 MG TAB PO PRN (02:40)
[2018-11-16 06:05] LABS: BASOPHILS % (AUTO) 0.7 % (0.2-1.0); EOSINOPHILS # (AUTO) 0.1 x10^3/uL (0.0-0.2); EOSINOPHILS % (AUTO) 1.1 % (0.9-2.9); HEMATOCRIT 24.3 % (36.0-47.0); HEMOGLOBIN 8.1 g/dL (12.0-16.0); LYMPHOCYTES % (AUTO) 16.9 % (21.0-51.0); MEAN CORPUSCULAR HEMOGLOBIN 28.5 pg (27.0-34.0); MEAN CORPUSCULAR HGB CONC 33.3 g/dL (33.0-35.0); MEAN CORPUSCULAR VOLUME 85.5 fL (80.0-100.0); MEAN PLATELET VOLUME 9.2 fL (7.4-11.0); MONOCYTES # (AUTO) 0.5 x10^3/uL (0.3-0.8); MONOCYTES % (AUTO) 8.1 % (0.0-13.0); NEUTROPHILS # (AUTO) 4.5 x10^3/uL (2.2-4.8); NEUTROPHILS % (AUTO) 73.2 % (42.0-75.0); PLATELET COUNT 104 X10^3/uL (150.0-450.0); RED BLOOD COUNT 2.84 X10^6/uL (3.5-5.4); RED CELL DISTRIBUTION WIDTH 16.1 % (11.6-16.5); WHITE BLOOD COUNT 6.2 X10^3/uL (3.6-10.0)
[2018-11-16 06:22] LABS: ALANINE AMINOTRANSFERASE 15 Units/L (12-78); ALBUMIN 1.9 g/dL (3.4-5.0); ALKALINE PHOSPHATASE 88 Units/L (46-116); ASPARTATE AMINO TRANSFERASE 17 Units/L (15-37); BLOOD UREA NITROGEN 19 mg/dL (7-18); CHLORIDE 114 mmol/L (98-107); COR CA(FOR HYPOALB) 8.7 mg/dL (8.5-10.1); CREATININE 0.94 mg/dL (0.55-1.02); SODIUM 143 mmol/L (136-145); TOTAL PROTEIN 4.8 g/dL (6.4-8.2); eGFR NON BLACK RACES > 60 (>60)
[2018-11-16 06:29] LABS: CARBON DIOXIDE 15.1 mmol/L (21-32)
[2018-11-16 07:16] LABS: ERYTHROCYTE SEDIMENTATION RATE 62 MM/HOUR (0-20)
[2018-11-16] MEDS ORDERED: MICRO K EXTEN CAP 10 MEQ PO PRN (08:25)
[2018-11-16] MEDS ORDERED: K-RIDER 10 MEQ/NS 100 ML 10 MEQ/100 ML BAG IV PRN (08:25)
[2018-11-16] MEDS ORDERED: POTASSIUM CHL 40 MEQ/NS 0.45% 500 ML IV PRN (08:25)
[2018-11-16] MEDS ORDERED: POTASSIUM CHLORIDE LIQ 20 MEQ UDC PO PRN (08:25)
[2018-11-16] MEDS ORDERED: K-DUR TAB 20 MEQ PO PRN (08:25)
[2018-11-16] MEDS ORDERED: MAGNESIUM SULFATE 1 GRAM/100 mL PREMIX 1 GM/100 ML BAG IV PRN (08:25)
[2018-11-16] MEDS ORDERED: POTASSIUM CHL 60 MEQ/NS 0.45% 500 ML IV PRN (08:25)
[2018-11-16] MEDS ORDERED: KLOR-CON PO PRN (08:25)
[2018-11-16] MEDS: DUONEB 0.5 MG/3 MG NEB SCH ×2 (08:36→12:00)
[2018-11-16] MEDS ORDERED: SALINE 3% 15 ML NEB TX NEB SCH (08:45)
[2018-11-16] MEDS ORDERED: SALINE 3% 15 ML NEB TX NEB ONE (08:45)
[2018-11-16] MEDS ORDERED: LEXAPRO ONE (08:54)
[2018-11-16] MEDS: DILAUDID INJ IVP PRN ×2 (08:59→13:44)
[2018-11-16] MEDS ORDERED: TORADOL 30 MG VIAL IVP SCH (09:00)
[2018-11-16] MEDS ORDERED: LOVENOX INJ 40 MG SYR SC SCH (09:00)
[2018-11-16] MEDS ORDERED: NS + KCL 20 MEQ/L 1,000 ML IV SCH (09:00)
[2018-11-16] MEDS: LEVAQUIN PREMIX IV 750 MG 750 MG/150 ML BAG IV SCH (09:04)
[2018-11-16] MEDS: LEXAPRO PO SCH (09:05)
[2018-11-16] MEDS ORDERED: VANCOMYCIN HCL 1 GM VIAL 1 G in D5W 250 ML IV 250 ML IV SCH (10:00)
[2018-11-16 12:04] VITALS: BP 113/56
[2018-11-16] MEDS ORDERED: HEPARIN SODIUM IN D5W 25,000 UNITS/500 ML BAG IV PRN (12:46)
[2018-11-16] MEDS ORDERED: HEPARIN SODIUM INJ 5000 UNITS ONE (15:03)
[2018-11-16] MEDS ORDERED: HEPARIN SODIUM INJ 5000 UNITS IVP ONE (15:08)
[2018-11-17] MEDS ORDERED: PHARMACY COMMENT IV NR (08:30)
[2018-11-22 11:46] LABS: ANTI-NUCLEAR ANTIBODY TEST NONE DETECTED
== END 2018-11-16 15:30 | disposition short-term general hospital (02) | DRG 872 ==
LOC: ER 20:23 → ICU 11-15 00:20
PROVIDERS: ADMIT Internal Medicine; ATTEND Obstetrics & Gynecology Obstetrics
DX: N28.9 Disorder of kidney and ureter, unspecified; R10.84 Generalized abdominal pain; R42 Dizziness and giddiness; R79.1 Abnormal coagulation profile; R29.810 Facial weakness; A41.1 Sepsis due to other specified staphylococcus; R53.1 Weakness; R19.7 Diarrhea, unspecified; R60.0 Localized edema; E87.2 Acidosis; G43.A0 Cyclical vomiting, in migraine, not intractable; K21.9 Gastro-esophageal reflux disease without esophagitis; E86.0 Dehydration
CPT/HCPCS: 36415; 51701; 70450; 71010; 71045; 74022; 76705; 80053; 80307; 81001; 82009; 82533; 82550; 82553; 83036; 83605; 83735; 84134; 84443; 84480; 84481; 84484; 85025; 85378; 85610; 85652; 85730; 86038; 86140; 86308; 86430; 87040; 87077; 87086; 87186; 93005; 93970; 94640; 96365; 96367; 96374; 99285; A4222; P9047; G0434; J1170; J1200; J1644; J1650; J1885; J1956; J2543; J3370; J3490; J7030; J7050; J7060; J7620

== ENCOUNTER 2018-12-02 17:17 | Inpatient (IN) ==
[2018-12-02] MEDS ORDERED: ZOFRAN INJ 4 MG VIAL IVP PRN (21:28)
[2018-12-02] MEDS ORDERED: MILK OF MAGNESIA PO PRN (21:28)
[2018-12-02] MEDS ORDERED: PERCOCET TAB 5/325 MG PO PRN (21:28)
[2018-12-02] MEDS: MERREM VIAL IVP SCH (21:41)
[2018-12-02] MEDS: DILAUDID INJ IVP PRN (22:00)
[2018-12-02 22:04] LABS: BASOPHILS % (AUTO) 0.2 % (0.2-1.0); EOSINOPHILS # (AUTO) 0.2 x10^3/uL (0.0-0.2); EOSINOPHILS % (AUTO) 2.8 % (0.9-2.9); HEMATOCRIT 28.1 % (36.0-47.0); HEMOGLOBIN 9.3 g/dL (12.0-16.0); LYMPHOCYTES # (AUTO) 2.4 X10^3/uL (1.3-2.9); LYMPHOCYTES % (AUTO) 33.7 % (21.0-51.0); MEAN CORPUSCULAR HGB CONC 33.2 g/dL (33.0-35.0); MEAN CORPUSCULAR VOLUME 84.4 fL (80.0-100.0); MEAN PLATELET VOLUME 7.3 fL (7.4-11.0); MONOCYTES # (AUTO) 0.7 x10^3/uL (0.3-0.8); MONOCYTES % (AUTO) 9.8 % (0.0-13.0); NEUTROPHILS # (AUTO) 3.8 x10^3/uL (2.2-4.8); NEUTROPHILS % (AUTO) 53.5 % (42.0-75.0); PLATELET COUNT 526 X10^3/uL (150.0-450.0); RED BLOOD COUNT 3.33 X10^6/uL (3.5-5.4); RED CELL DISTRIBUTION WIDTH 15.6 % (11.6-16.5); WHITE BLOOD COUNT 7.1 X10^3/uL (3.6-10.0)
[2018-12-02 22:12] LABS: ALANINE AMINOTRANSFERASE 36 Units/L (12-78); ALBUMIN 2.6 g/dL (3.4-5.0); ALKALINE PHOSPHATASE 116 Units/L (46-116); ASPARTATE AMINO TRANSFERASE 28 Units/L (15-37); BLOOD UREA NITROGEN 4 mg/dL (7-18); CALCIUM 9.1 mg/dL (8.5-10.1); CARBON DIOXIDE 26.9 mmol/L (21-32); CHLORIDE 98 mmol/L (98-107); COR CA(FOR HYPOALB) 10.2 mg/dL (8.5-10.1); CREATININE 0.57 mg/dL (0.55-1.02); MAGNESIUM 1.8 mg/dL (1.7-2.9); SODIUM 134 mmol/L (136-145); TOTAL PROTEIN 7.5 g/dL (6.4-8.2); eGFR NON BLACK RACES > 60 (>60)
[2018-12-02] MEDS: COLACE CAP 100 MG PO SCH (22:37)
[2018-12-02] MEDS: LOVENOX INJ 80 MG SYR SC SCH (22:38)
[2018-12-02] MEDS: AMBIEN PO PRN (22:40)
[2018-12-02] MEDS: MIRALAX POWDER (1 DOSE 17 G) PO SCH (22:40)
[2018-12-02] MEDS: ATIVAN TAB 1 MG PO PRN (22:41)
[2018-12-02] MEDS: PHENERGAN INJ 25 MG IM PRN (22:44)
[2018-12-03] VITALS: BMI 27.4
--- NOTE | 2018-12-03 00:02 | RAD ---
Chest, 1 view Indication: Sepsis, shortness of breath Comparison: 11/18/2018 Findings: There has been interval removal of the left-sided Port-A-Cath, with placement of a right jugular approach CVL. There is small left-sided pleural effusion with worsened basilar airspace disease. Right basilar airspace disease has developed with trace right-sided effusion. The upper lungs are grossly clear. Cardiac silhouette is stable. Impression: Worsening bibasilar pleural parenchymal opacities, left greater than right. Reported By:
[2018-12-03] MEDS ORDERED: BENADRYL INJ 50 MG VIAL ONE (00:06)
[2018-12-03] MEDS: BENADRYL INJ 50 MG VIAL IV PRN (00:24)
[2018-12-03] MEDS ORDERED: SALINE 3% 15 ML NEB TX NEB ONE (02:26)
[2018-12-03] MEDS: MERREM VIAL IVP SCH ×4 (04:28→20:48)
[2018-12-03] MEDS: DILAUDID INJ IVP PRN ×5 (04:40→20:46)
[2018-12-03] MEDS: XOPENEX 1.25 MG/3 ML NEBULE NEB SCH ×3 (05:45→21:10)
[2018-12-03] MEDS: LOVENOX INJ 80 MG SYR SC SCH (08:34)
[2018-12-03 09:06] LABS: BILIRUBIN,URINE NEGATIVE (NEGATIVE); BLOOD/HEMOGLOBIN,URINE 1+ (NEGATIVE); GLUCOSE, URINE NEGATIVE (NEGATIVE); KETONES,URINE 1+ (NEGATIVE); LEUKOCYTE ESTERASE ,URINE NEGATIVE (NEGATIVE); NITRITES,URINE NEGATIVE (NEGATIVE); PROTEIN,URINE NEGATIVE (NEGATIVE); UROBILINOGEN,URINE NORMAL (NORMAL)
[2018-12-03 09:12] LABS: APPEARANCE,URINE HAZY (CLEAR); BACTERIA,URINE NEGATIVE /HPF (NEGATIVE); COLOR,URINE YELLOW (YELLOW); RBC,URINE 0-2 /HPF (NONE SEEN); SQUAMOUS EPITHELIAL CELL,UR RARE /HPF (NEGATIVE)
[2018-12-03] MEDS: COLACE CAP 100 MG PO SCH ×2 (09:18→22:23)
[2018-12-03] MEDS: PHENERGAN INJ 25 MG IM PRN ×2 (09:30→18:50)
[2018-12-03] MEDS ORDERED: PROCALAMINE 3 % 1,000 ML IV SCH ×2 (11:00→16:00)
[2018-12-03] MEDS: ATIVAN TAB 1 MG PO PRN ×2 (11:12→18:51)
[2018-12-03] MEDS: MEGACE PO SCH ×2 (11:16→20:58)
[2018-12-03] MEDS: ELIQUIS PO SCH ×2 (11:16→20:59)
[2018-12-03] MEDS: PROTONIX INJ 40 MG VIAL IVP SCH (11:17)
[2018-12-03] MEDS: TORADOL 15 MG VIAL IVP SCH ×2 (11:45→22:49)
--- NOTE | 2018-12-03 18:38 | DR.H&P ---
H&P - History & Physical for Day of: H&P Date: 12/02/18 - Chief Complaint Chief Complaint: MSSA SEPTICEMIA, PAIN - History of Present Illness History of Present Illness: IS A 38 YEAR OLD WHITE FEMALE WHO RETURNED TO OUR FACILITY LAST NIGHT FOR ANTIBIOTIC TREATMENT DUE TO MSSA SEPTICEMIA AND PAIN CONTROL. SHE WAS TRANSFERRED OUT FROM OUR FACILITY ON 11/16/18 AND SENT TO [facility] IN [place], [place] DUE TO SEPSIS, WHICH IS SUSPECTED TO BE FROM PORT A CATH AND THROMBUS TO THE LEFT JUGULAR VEIN WITH SUBTOTAL OCCLUSION AND THROMBUS WITHIN THE LEFT SUBCLAVIAN VEIN. BLOOD CULTURES WERE POSITIVE FOR MSSA. UPON DISCHARGE, PATIENT WAS UNABLE TO MOVE UPPER OR LOWER EXTREMITIES. WHILE IN [place], SHE WAS FOUND TO HAVE MULTIPLE ABSCESSES AND FLUID POCKETS TO CHEST, RIGHT SHOULDER, AND RIGHT ELBOW. I&D WAS PERFORMED TO DRAIN THE ABSCESS TO THE SHOULDER AND ELBOW. THE PORT A CATH WAS REMOVED. SHE WAS TREATED FOR SEPTIC EMBOLI AND PNEUMONIA WITH MEROPENEM AND LOVENOX. UPON ARRIVAL TO THE HOSPITAL, SHE IS NOTED WITH SUTURES TO THE RIGHT SHOULDER AND A CENTRAL LINE TO THE RIGHT CHEST WALL. SHE WAS REQUIRING A DILAUDID LENGTH CONTROL TESTER FOR PAIN CONTROL WELL ORAL ANALGESICS. PHYSICAL THERAPY WAS ASSISTING PATIENT WITH AMBULATION. INFECTIOUS DISEASE RECOMMENED AN ADDITIONAL FOUR WEEKS OF IV ANTIBIOTICS AND WOUND CARE. PATIENT WAS TRANSFERRED BACK TO OUR FACILITY TO COMPLETE IV COURSE AND WOUND CARE. ON ARRIVAL TO THE HOSPITAL, VITALS WERE 98.2-120-18-98%-128/74. LABS WERE OBTAINED. ABNORMAL LAB VALUES INCLUDE THE FOLLOWING: RBC 3.33, HGB 9.3, HCT 28.1, PLT COUNT 526, SODIUM 134, BUN 4, ALBUMIN 2.6, GLOBULIN 4.9. A CHEST XRAY WAS OBTAINED AND REVEALED: Worsening bibasilar pleural parenchymal opacities, left greater than right. WE WILL CONTINUE MEROPENEM, PERCOCET, DILAUDID, NEB TREATMENTS, PHENERGAN, AND A BOWEL REGIMEN. WE WILL CONSULT PHYSICAL THERAPY. OTHERWISE, WE WILL FOLLOW UP WITH AM LABS AND CONTINUE TO MONITOR. - Past Medical History Past Medical History: Hypothyroidism, GERD, Arthritis - Past Surgical History Surgical History: , COMMERCIAL ROOFER Surgery, Thyroidectomy Additional Surgical History: Neck surgery x2 - Family History Family Medical History: Cancer, [place], Hypertension - Social History Does patient currently use any type of tobacco product: No Have you used tobacco products in the last 12 months: No Type of Tobacco Use: None Does any household member use tobacco: No Alcohol Use: None Drug Use: None - Medications Home Medications: piperacillin [From Zosyn] Allergy (Verified 11/15/18 01:17) tazobactam [From Zosyn] Allergy (Verified 11/15/18 01:17) dexamethasone Adverse Reaction (Verified 03/06/18 13:42) morphine Adverse Reaction (Verified 03/06/18 13:42) - Review of Systems Constitutional: Weakness Eyes: No Symptoms Reported ENT: No Symptoms Reported Respiratory: No Symptoms Reported Cardiovascular: No Symptoms Reported Gastrointestinal: No Symptoms Reported Genitourinary: No Symptoms Reported Musculoskeletal: See HPI, Shoulder Pain, Neck Pain, Other (CHEST PAIN ) Skin: See HPI, Wound Neurological: No Symptoms Reported - Physical Exam Vital Signs: Temperature 98.5 F Pulse Rate [Bilateral Radial] 110 Pulse Rate 106 Respiratory Rate 24 Blood Pressure [Left Calf] 120/61 Blood Pressure [Left Arm] 98/59 Blood Pressure [Right Arm] 118/68 Blood Pressure 120/58 O2 Sat by Pulse Oximetry 100 Oriented: Normal Eyes: Normal Ear: Normal Nose: Normal Throat: Normal Respiratory: Diminished Throughout Cardiovascular: Normal : Normal Auscultation: Bowel Sounds: Normal Palpation: Normal Tenderness: Normal Skin: Normal Musculoskeletal: Right, Left, Shoulder, Elbow (LEFT ELBOW PAIN), Tender Psychiatric: Normal Mood Description: Calm Affect: Normal Speech Pattern: Clear - Assessment/Plan (1) Sepsis due to methicillin susceptible Staphylococcus aureus (MSSA) with acute hypercapnic respiratory failure and septic shock Status: Acute (2) Pneumonia Qualifiers: Pneumonia type: due to unspecified organism Laterality: bilateral Lung location: lower lobe of lung Qualified Code(s): J18.1 - Lobar pneumonia, unspecified organism Status: Acute Plan: MEROPENEM, XOPENEX, CONTINUE TO MONITOR (3) Septic embolism Status: Acute Plan: LOVENOX 80MG SC BID, CONTINUE TO MONITOR - Allergies Allergies/Adverse Reactions: Allergies Allergy/AdvReac Type Severity Reaction Status Date / Time piperacillin [From Zosyn] Allergy Verified 11/15/18 01:17 tazobactam [From Zosyn] Allergy Verified 11/15/18 01:17 dexamethasone AdvReac Verified 03/06/18 13:42 morphine AdvReac Verified 03/06/18 13:42
[2018-12-03] MEDS: HIBICLENS WASH EXT PRN (20:00)
[2018-12-03] MEDS: PERCOCET TAB 5/325 MG PO SCH (20:47)
[2018-12-03] MEDS: MIRALAX POWDER (1 DOSE 17 G) PO SCH (20:49)
[2018-12-03] MEDS: AMBIEN PO PRN (22:49)
[2018-12-04] MEDS: DILAUDID INJ IVP PRN ×6 (00:22→22:43)
[2018-12-04] MEDS: ATIVAN TAB 1 MG PO PRN ×3 (00:24→20:16)
[2018-12-04] MEDS: MERREM VIAL IVP SCH ×4 (03:32→22:00)
[2018-12-04] MEDS: XOPENEX 1.25 MG/3 ML NEBULE NEB SCH ×3 (05:35→20:40)
[2018-12-04] MEDS: ELIQUIS PO SCH ×2 (09:46→20:16)
[2018-12-04] MEDS: MEGACE PO SCH ×2 (09:46→20:16)
[2018-12-04] MEDS: PERCOCET TAB 5/325 MG PO SCH ×2 (09:47→19:15)
[2018-12-04] MEDS: PROTONIX INJ 40 MG VIAL IVP SCH (09:48)
[2018-12-04] MEDS: COLACE CAP 100 MG PO SCH ×2 (09:50→20:15)
[2018-12-04] MEDS: TORADOL 15 MG VIAL IVP SCH (12:39)
[2018-12-04] MEDS: PHENERGAN INJ 25 MG IM PRN ×2 (12:43→19:23)
[2018-12-04] MEDS ORDERED: PERCOCET TAB 5/325 MG PO SCH ×2 (13:00→14:00)
--- NOTE | 2018-12-04 17:35 | DR.PROGNOT ---
Hospital Progress Notes - Progress Note for Day of: Progress Note Date: 12/04/18 - Chief Complaint Chief Complaint: Pt seems to be stable , afebrile and comfortable . all dressings were changed and packing was changed .. no active infection . Lt chest wall incision is clean and healthy . Lt elbow with small fluid collection around the elbow , nontender . rt shoulder incision is clean , no infection . - Past Medical Family Social History Past Med/Fam/Surg Hx: No changes since H&P Allergies: Allergies piperacillin [From Zosyn] Allergy (Verified 11/15/18 01:17) tazobactam [From Zosyn] Allergy (Verified 11/15/18 01:17) dexamethasone Adverse Reaction (Verified 03/06/18 13:42) morphine Adverse Reaction (Verified 03/06/18 13:42) - Review Of Systems ROS: No change since H&P - Vital Signs Vital Signs: Temperature 96.4 F Pulse Rate [Bilateral Radial] 109 Pulse Rate 102 Respiratory Rate 12 Blood Pressure [Left Calf] 129/59 Blood Pressure [Left Arm] 98/59 Blood Pressure [Right Arm] 118/68 Blood Pressure 120/58 O2 Sat by Pulse Oximetry 100 - Physical Exam Oriented: Normal Eyes: Normal Ear: Normal Nose: Normal Throat: Normal Cardiovascular: Normal : Normal GI:Auscultation: Normal GI:Palpation: Normal GI: Tenderness: Normal Skin: Normal, Other (see above .) Musculoskeletal: Right, Left, Shoulder, Elbow (LEFT ELBOW PAIN), Tender Psychiatric: Normal Mood Description: Calm Affect: Normal Speech Pattern: Clear, Appropriate - Laboratory and Diagnostics Result Diagrams: 12/02/18 21:52 12/02/18 21:52 Labs: Laboratory WBC 7.1 X10^3/uL (3.6-10.0) 12/02/18 21:52 RBC 3.33 X10^6/uL (3.5-5.4) L 12/02/18 21:52 Hgb 9.3 g/dL (12.0-16.0) L 12/02/18 21:52 Hct 28.1 % (36.0-47.0) L 12/02/18 21:52 MCV 84.4 fL (80.0-100.0) 12/02/18 21:52 MCH 28.0 pg (27.0-34.0) 12/02/18 21:52 MCHC 33.2 g/dL (33.0-35.0) 12/02/18 21:52 RDW 15.6 % (11.6-16.5) 12/02/18 21:52 Plt Count 526 X10^3/uL (150.0-450.0) H 12/02/18 21:52 MPV 7.3 fL (7.4-11.0) L 12/02/18 21:52 Neut % (Auto) 53.5 % (42.0-75.0) 12/02/18 21:52 Lymph % (Auto) 33.7 % (21.0-51.0) 12/02/18 21:52 [place] % (Auto) 9.8 % (0.0-13.0) 12/02/18 21:52 Eos % (Auto) 2.8 % (0.9-2.9) 12/02/18 21:52 Baso % (Auto) 0.2 % (0.2-1.0) 12/02/18 21:52 Neut # (Auto) 3.8 x10^3/uL (2.2-4.8) 12/02/18 21:52 Lymph # (Auto) 2.4 X10^3/uL (1.3-2.9) 12/02/18 21:52 [place] # (Auto) 0.7 x10^3/uL (0.3-0.8) 12/02/18 21:52 Eos # (Auto) 0.2 x10^3/uL (0.0-0.2) 12/02/18 21:52 Baso # (Auto) 0.0 X10^3/uL (0.0-0.1) 12/02/18 21:52 Absolute Nucleated RBC 0.0 /100WBC 12/02/18 21:52 Sodium 134 mmol/L (136-145) L 12/02/18 21:52 Corrected Sodium TNP 12/02/18 21:52 Potassium 4.0 mmol/L (3.5-5.1) 12/02/18 21:52 Chloride 98 mmol/L (98-107) 12/02/18 21:52 Carbon Dioxide 26.9 mmol/L (21-32) 12/02/18 21:52 BUN 4 mg/dL (7-18) L 12/02/18 21:52 Creatinine 0.57 mg/dL (0.55-1.02) 12/02/18 21:52 Est GFR (MDRD) Af Amer > 60 (>60) 12/02/18 21:52 Est GFR (MDRD) Non-Af > 60 (>60) 12/02/18 21:52 Glucose 99 mg/dL (65-99) 12/02/18 21:52 Calcium 9.1 mg/dL (8.5-10.1) 12/02/18 21:52 Corrected Calcium 10.2 mg/dL (8.5-10.1) H 12/02/18 21:52 Magnesium 1.8 mg/dL (1.7-2.9) 12/02/18 21:52 Total Bilirubin 0.40 mg/dL (0.2-1.0) 12/02/18 21:52 AST 28 Units/L (15-37) 12/02/18 21:52 ALT 36 Units/L (12-78) 12/02/18 21:52 Alkaline Phosphatase 116 Units/L (46-116) 12/02/18 21:52 Total Protein 7.5 g/dL (6.4-8.2) 12/02/18 21:52 Albumin 2.6 g/dL (3.4-5.0) L 12/02/18 21:52 Globulin 4.9 g/dL (2.5-4.5) H 12/02/18 21:52 Albumin/Globulin Ratio 0.5 Ratio (1.1-2.1) L 12/02/18 21:52 Specimen Type Clean catch urine 12/03/18 08:40 Urine Color Yellow (YELLOW) 12/03/18 08:40 Urine Appearance Hazy (CLEAR) 12/03/18 08:40 Urine pH 7.0 (5.0 - 8.0) 12/03/18 08:40 Ur Specific [place] 1.015 (1.000-1.030) 12/03/18 08:40 Urine Protein Negative (NEGATIVE) 12/03/18 08:40 Urine Glucose (UA) Negative (NEGATIVE) 12/03/18 08:40 Urine Ketones 1+ (NEGATIVE) 12/03/18 08:40 Urine Occult Blood 1+ (NEGATIVE) 12/03/18 08:40 Urine Nitrite Negative (NEGATIVE) 12/03/18 08:40 Urine Bilirubin Negative (NEGATIVE) 12/03/18 08:40 Urine Urobilinogen Normal (NORMAL) 12/03/18 08:40 Ur Leukocyte Esterase Negative (NEGATIVE) 12/03/18 08:40 Urine RBC 0-2 /HPF (NONE SEEN) 12/03/18 08:40 Urine WBC None seen /HPF (NONE SEEN) 12/03/18 08:40 Ur Squamous Epith Cells Rare /HPF (NEGATIVE) 12/03/18 08:40 Urine Bacteria Negative /HPF (NEGATIVE) 12/03/18 08:40 Ur Culture Indicated? No/not indicated 12/03/18 08:40 - Assessment and Plan 1: multiple abscesses and wounds , S/p drainage and packing . improving with current Tx . same local care and ATB . - Problem Patient Problems: Patient Problems Sepsis due to methicillin susceptible Staphylococcus aureus (MSSA) with acute hypercapnic respiratory failure and septic shock (Acute) A41.01, R65.21, J96.02 Pneumonia (Acute) J18.9 Septic embolism (Acute) I76
[2018-12-04] MEDS: AMBIEN PO PRN (20:16)
[2018-12-04] MEDS: BENADRYL INJ 50 MG VIAL IV PRN (20:17)
--- NOTE | 2018-12-04 20:45 | PCM.PROG ---
Progress Note - Progress Note for Day of Date of Exam: 12/03/18 - Subjective Subjective: IS BEING TREATED FOR MSSA SEPTICEMIA, PNEUMONIA, AND SEPTIC EMBOLISMS. TODAY, SHE IS ALERT AND ORIENTED, LYING IN BED ON MORNING ROUNDS. SHE CONTINUES WITH WEAKNESS AND PAIN TO CHEST, RIGHT SHOULDER, AND LEFT ELBOW AREAS. ON EXAMINATION, SHE IS TACHYCARDIC WITH HR 110-120. BILATERAL LUNGS ARE NOTED WITH DIMINISHED LUNG SOUNDS THROUGHOUT. ABDOMEN IS ROUND, SOFT, AND NON-TENDER WITH NORMAL BOWEL SOUNDS NOTED IN ALL QUADRANTS. SHE CONTINUES WITH WEAKNESS TO LOWER EXTREMITES, BUT REPORTS BEING ABLE TO AMBULATE TO BATHROOM WITH MINIMAL ASSISTANCE. HER VITALS THIS MORNING ARE: 98.3-112-21-97%-108/56. LABS WERE OBTAINED. LABS WERE NOT OBTAINED TODAY. THEY WILL BE OBTAINED AGAIN ON SUNDAY. TODAY, WE WILL TRANSITION HER TO ELIQUIS 5MG PO BID AND DISCONTINUE THE LOVENOX. WE WILL START TORADOL 15MG V Q12H, DECREASE PERCOCET TO 5/325 MG PO BID KATHY, START MEGACE 40MG PO BID, PROTONIX 40MG PO DAILY. WE WILL TRACK A CBC, CMP, ESR, AND CRP ON SUNDAY. OTHERWISE, WE WILL CONTINUE WITH MEROPENEM 500MG IV Q6H AND RESPIRATORY TREATMENTS. WE WILL ALSO CONTINUE WITH WOUND CARE AND CON TINUE TO MONITOR. - Past Medical Family Social History Past Med/Fam/Surg Hx: No changes since H&P Allergies: Allergies piperacillin [From Zosyn] Allergy (Verified 11/15/18 01:17) tazobactam [From Zosyn] Allergy (Verified 11/15/18 01:17) dexamethasone Adverse Reaction (Verified 03/06/18 13:42) morphine Adverse Reaction (Verified 03/06/18 13:42) - Review of Systems ROS: No change since H&P - Vital Signs and I&O's Vital Signs: Temperature 97.8 F Pulse Rate [Bilateral Radial] 109 Pulse Rate 127 Respiratory Rate 22 Blood Pressure [Left Calf] 133/62 Blood Pressure [Left Arm] 98/59 Blood Pressure [Right Arm] 118/68 Blood Pressure 120/58 O2 Sat by Pulse Oximetry 97 Intake and Output: Intake & Output 12/02/18 12/03/18 12/04/18 12/05/18 11:59 11:59 11:59 11:59 Intake Total 550 / 550 1386 / 1386 2956 / 2956 Balance 550 / 550 1386 / 1386 2956 / 2956 - Physical Exam Oriented: Normal Eyes: Normal Ear: Normal Nose: Normal Throat: Normal Respiratory: Generalized, Diminished Cardiovascular: Normal : Normal Auscultation: Bowel Sounds: Normal Palpation: Normal Tenderness: Normal Skin: Wound (RIGHT SHOULER WOUND, LEFT CHEST WALL WOUND, LEFT ELBOW WOUND. SEE WOUND ASSESSMENT ) Musculoskeletal: Right, Left, Shoulder, Elbow (LEFT ELBOW PAIN), Tender Psychiatric: Normal Mood Description: Calm Affect: Normal Speech Pattern: Clear, Appropriate - Laboratory and Diagnostics Result Diagrams: 12/02/18 21:52 12/02/18 21:52 Labs: Laboratory WBC 7.1 X10^3/uL (3.6-10.0) 12/02/18 21:52 RBC 3.33 X10^6/uL (3.5-5.4) L 12/02/18 21:52 Hgb 9.3 g/dL (12.0-16.0) L 12/02/18 21:52 Hct 28.1 % (36.0-47.0) L 12/02/18 21:52 MCV 84.4 fL (80.0-100.0) 12/02/18 21:52 MCH 28.0 pg (27.0-34.0) 12/02/18 21:52 MCHC 33.2 g/dL (33.0-35.0) 12/02/18 21:52 RDW 15.6 % (11.6-16.5) 12/02/18 21:52 Plt Count 526 X10^3/uL (150.0-450.0) H 12/02/18 21:52 MPV 7.3 fL (7.4-11.0) L 12/02/18 21:52 Neut % (Auto) 53.5 % (42.0-75.0) 12/02/18 21:52 Lymph % (Auto) 33.7 % (21.0-51.0) 12/02/18 21:52 [place] % (Auto) 9.8 % (0.0-13.0) 12/02/18 21:52 Eos % (Auto) 2.8 % (0.9-2.9) 12/02/18 21:52 Baso % (Auto) 0.2 % (0.2-1.0) 12/02/18 21:52 Neut # (Auto) 3.8 x10^3/uL (2.2-4.8) 12/02/18 21:52 Lymph # (Auto) 2.4 X10^3/uL (1.3-2.9) 12/02/18 21:52 [place] # (Auto) 0.7 x10^3/uL (0.3-0.8) 12/02/18 21:52 Eos # (Auto) 0.2 x10^3/uL (0.0-0.2) 12/02/18 21:52 Baso # (Auto) 0.0 X10^3/uL (0.0-0.1) 12/02/18 21:52 Absolute Nucleated RBC 0.0 /100WBC 12/02/18 21:52 Sodium 134 mmol/L (136-145) L 12/02/18 21:52 Corrected Sodium TNP 12/02/18 21:52 Potassium 4.0 mmol/L (3.5-5.1) 12/02/18 21:52 Chloride 98 mmol/L (98-107) 12/02/18 21:52 Carbon Dioxide 26.9 mmol/L (21-32) 12/02/18 21:52 BUN 4 mg/dL (7-18) L 12/02/18 21:52 Creatinine 0.57 mg/dL (0.55-1.02) 12/02/18 21:52 Est GFR (MDRD) Af Amer > 60 (>60) 12/02/18 21:52 Est GFR (MDRD) Non-Af > 60 (>60) 12/02/18 21:52 Glucose 99 mg/dL (65-99) 12/02/18 21:52 Calcium 9.1 mg/dL (8.5-10.1) 12/02/18 21:52 Corrected Calcium 10.2 mg/dL (8.5-10.1) H 12/02/18 21:52 Magnesium 1.8 mg/dL (1.7-2.9) 12/02/18 21:52 Total Bilirubin 0.40 mg/dL (0.2-1.0) 12/02/18 21:52 AST 28 Units/L (15-37) 12/02/18 21:52 ALT 36 Units/L (12-78) 12/02/18 21:52 Alkaline Phosphatase 116 Units/L (46-116) 12/02/18 21:52 Total Protein 7.5 g/dL (6.4-8.2) 12/02/18 21:52 Albumin 2.6 g/dL (3.4-5.0) L 12/02/18 21:52 Globulin 4.9 g/dL (2.5-4.5) H 12/02/18 21:52 Albumin/Globulin Ratio 0.5 Ratio (1.1-2.1) L 12/02/18 21:52 Specimen Type Clean catch urine 12/03/18 08:40 Urine Color Yellow (YELLOW) 12/03/18 08:40 Urine Appearance Hazy (CLEAR) 12/03/18 08:40 Urine pH 7.0 (5.0 - 8.0) 12/03/18 08:40 Ur Specific [place] 1.015 (1.000-1.030) 12/03/18 08:40 Urine Protein Negative (NEGATIVE) 12/03/18 08:40 Urine Glucose (UA) Negative (NEGATIVE) 12/03/18 08:40 Urine Ketones 1+ (NEGATIVE) 12/03/18 08:40 Urine Occult Blood 1+ (NEGATIVE) 12/03/18 08:40 Urine Nitrite Negative (NEGATIVE) 12/03/18 08:40 Urine Bilirubin Negative (NEGATIVE) 12/03/18 08:40 Urine Urobilinogen Normal (NORMAL) 12/03/18 08:40 Ur Leukocyte Esterase Negative (NEGATIVE) 12/03/18 08:40 Urine RBC 0-2 /HPF (NONE SEEN) 12/03/18 08:40 Urine WBC None seen /HPF (NONE SEEN) 12/03/18 08:40 Ur Squamous Epith Cells Rare /HPF (NEGATIVE) 12/03/18 08:40 Urine Bacteria Negative /HPF (NEGATIVE) 12/03/18 08:40 Ur Culture Indicated? No/not indicated 12/03/18 08:40 - Plan (1) Sepsis due to methicillin susceptible Staphylococcus aureus (MSSA) with acute hypercapnic respiratory failure and septic shock Status: Acute (2) Pneumonia Status: Acute Qualifiers: Pneumonia type: due to unspecified organism Laterality: bilateral Lung location: lower lobe of lung Qualified Code(s): J18.1 - Lobar pneumonia, unspecified organism Plan: MEROPENEM, XOPENEX, CONTINUE TO MONITOR (3) Septic embolism Status: Acute Plan: ELIQUIS 5MG PO BID, CONTINUE TO MONITOR
[2018-12-04] MEDS: MIRALAX POWDER (1 DOSE 17 G) PO SCH (22:11)
[2018-12-05] MEDS: TORADOL 15 MG VIAL IVP SCH ×2 (00:10→00:13)
[2018-12-05] MEDS ORDERED: NS 100 ML IV 100 ML ONE ×2 (00:22→08:35)
[2018-12-05] MEDS: PERCOCET TAB 5/325 MG PO SCH ×6 (01:00→21:32)
[2018-12-05] MEDS: MERREM VIAL IVP SCH ×2 (03:28→09:37)
[2018-12-05] MEDS: DILAUDID INJ IVP PRN (05:15)
[2018-12-05 05:37] LABS: BASOPHILS % (AUTO) 0.6 % (0.2-1.0); EOSINOPHILS # (AUTO) 0.3 x10^3/uL (0.0-0.2); EOSINOPHILS % (AUTO) 4.4 % (0.9-2.9); HEMATOCRIT 26.6 % (36.0-47.0); HEMOGLOBIN 8.7 g/dL (12.0-16.0); LYMPHOCYTES # (AUTO) 1.8 X10^3/uL (1.3-2.9); MEAN CORPUSCULAR HEMOGLOBIN 27.7 pg (27.0-34.0); MEAN CORPUSCULAR HGB CONC 32.9 g/dL (33.0-35.0); MEAN CORPUSCULAR VOLUME 84.4 fL (80.0-100.0); MEAN PLATELET VOLUME 8.1 fL (7.4-11.0); MONOCYTES # (AUTO) 0.6 x10^3/uL (0.3-0.8); MONOCYTES % (AUTO) 9.8 % (0.0-13.0); NEUTROPHILS # (AUTO) 3.7 x10^3/uL (2.2-4.8); NEUTROPHILS % (AUTO) 57.2 % (42.0-75.0); PLATELET COUNT 471 X10^3/uL (150.0-450.0); RED BLOOD COUNT 3.15 X10^6/uL (3.5-5.4); RED CELL DISTRIBUTION WIDTH 15.9 % (11.6-16.5); WHITE BLOOD COUNT 6.4 X10^3/uL (3.6-10.0)
[2018-12-05] MEDS: BENADRYL INJ 50 MG VIAL IV PRN ×3 (05:44→21:33)
[2018-12-05] MEDS: ATIVAN TAB 1 MG PO PRN ×3 (05:45→19:52)
[2018-12-05 05:59] LABS: ALANINE AMINOTRANSFERASE 43 Units/L (12-78); ALBUMIN 2.2 g/dL (3.4-5.0); ALKALINE PHOSPHATASE 104 Units/L (46-116); ASPARTATE AMINO TRANSFERASE 45 Units/L (15-37); BLOOD UREA NITROGEN 9 mg/dL (7-18); CALCIUM 8.9 mg/dL (8.5-10.1); CARBON DIOXIDE 23.9 mmol/L (21-32); CHLORIDE 102 mmol/L (98-107); COR CA(FOR HYPOALB) 10.3 mg/dL (8.5-10.1); CREATININE 0.57 mg/dL (0.55-1.02); SODIUM 137 mmol/L (136-145); TOTAL PROTEIN 7.2 g/dL (6.4-8.2); eGFR NON BLACK RACES > 60 (>60)
[2018-12-05] MEDS: XOPENEX 1.25 MG/3 ML NEBULE NEB SCH ×3 (06:14→20:23)
[2018-12-05 06:40] LABS: ERYTHROCYTE SEDIMENTATION RATE 102 MM/HOUR (0-20)
[2018-12-05] MEDS: PHENERGAN INJ 25 MG IM PRN ×3 (07:38→21:34)
[2018-12-05] MEDS: PROTONIX INJ 40 MG VIAL IVP SCH (08:52)
[2018-12-05] MEDS: MEGACE PO SCH ×2 (08:55→21:31)
[2018-12-05] MEDS: COLACE CAP 100 MG PO SCH ×2 (09:07→21:30)
[2018-12-05] MEDS: ELIQUIS PO SCH ×2 (09:11→21:30)
[2018-12-05] MEDS ORDERED: DILAUDID INJ IVP NR (09:30)
[2018-12-05] MEDS ORDERED: VALIUM PO ONE (10:11)
[2018-12-05] MEDS ORDERED: NS 1000 ML 1,000 ML ONE (12:33)
--- NOTE | 2018-12-05 12:45 | VAS ---
Upper extremity doppler sonogram Indication: Bilateral upper extremity edema Comparison: None available TECHNIQUE: Multiple jiang scale and color flow Doppler images of the deep venous system were obtained of the right and left upper extremity. FINDINGS: There is thrombosis of the left jugular vein. Remaining left upper extremity deep and superficial veins demonstrate normal color Doppler flow augmentation and compressibility. There is incomplete compressibility within the right basilic vein with some amount of color Doppler flow noted within the right basilic vein. Remaining right upper extremity deep and superficial veins demonstrate normal flow, augmentation compressibility. IMPRESSION: 1. Thrombosis of the left jugular vein. 2.Partial thrombosis of the right basilic vein. Reported By:
[2018-12-05] MEDS: TORADOL 30 MG VIAL IVP PRN ×2 (13:33→19:52)
[2018-12-05] MEDS: HIBICLENS WASH EXT PRN (14:07)
[2018-12-05] MEDS: PATIENT'S HOME MEDICATION PO SCH (14:08)
--- NOTE | 2018-12-05 15:48 | MRI ---
MR cervical spine with and without contrast Indication: Possible abscess. Neck pain. Comparison: 08/15/2016 cervical spine MR. Technique: Multiplanar multi sequence imaging through the cervical spine before and after IV contrast. 60 cc of MultiHance given. Findings: Visualized posterior fossa structures are intact. Soft tissues of the neck and face show no unexpected abnormality. Limited images through the upper thoracic spine show no acute abnormality. There is postsurgical change C5 through C7 from anterior discectomy and fusion hardware. T1 weighted imaging shows no marked bone marrow signal abnormality. Spinal cord signal is normal. No high-grade spinal canal stenosis seen. No marked STIR signal abnormality is noted. Minimal posterior longitudinal ligament thickening at C4-C5 causes minimal spinal canal narrowing. Limited images through the soft tissues of the neck and upper chest show no acute abnormality. C2-C3: No stenosis C3-C4: No stenosis C4-C5: No stenosis C5-C6: Artifact limits sensitivity, without high-grade stenosis seen. C6-C7: No high-grade stenosis seen, with artifact limiting sensitivity new C7-T1 no high-grade stenosis with artifact limiting sensitivity. Post-contrast imaging shows no abnormal enhancement. No abnormal epidural collection convincingly demonstrated. No bone marrow signal abnormality identified. Impression: 1. Postsurgical changes without enhancing fluid collection or bone marrow signal abnormality to suggest cervical spine infection. 2. No high-grade spinal canal or neural foramen stenosis. 3. If there is high concern for infection in the neck, CT soft tissue neck with contrast is recommended to better evaluate the neck soft tissues Reported By:
[2018-12-05] MEDS: AMBIEN PO PRN (19:51)
--- NOTE | 2018-12-05 20:33 | PCM.PROG ---
Progress Note - Progress Note for Day of Date of Exam: 12/04/18 - Subjective Subjective: IS BEING TREATED FOR MSSA SEPTICEMIA, PNEUMONIA, AND SEPTIC EMBOLISMS. TODAY, SHE IS ALERT AND ORIENTED, LYING IN BED ON MORNING ROUNDS. SHE CONTINUES WITH WEAKNESS AND PAIN TO CHEST, RIGHT SHOULDER, AND LEFT ELBOW AREAS. ON EXAMINATION, SHE IS TACHYCARDIC WITH HR 110-120. BILATERAL LUNGS ARE NOTED WITH DIMINISHED LUNG SOUNDS THROUGHOUT. ABDOMEN IS ROUND, SOFT, AND NON-TENDER WITH NORMAL BOWEL SOUNDS NOTED IN ALL QUADRANTS. SHE CONTINUES WITH WEAKNESS TO LOWER EXTREMITES. HER VITALS THIS MORNING ARE: 99.7-114-22-96%-116/55. LABS WERE OBTAINED. ABNORMAL LAB VALUES INCLUDE THE F OLLOWING: RBC 3.15, HGB 8.7, HCT 26.6, CORRECTED CALCIUM 10.3, AST 45, CRP 101.30, ALBUMIN 2.2, GLOBULIN 5.0. WE TRANSITIONED HER TO ELIQUIS YESTERDAY. TODAY, WE WILL ADJUST THE DOSES OF HER PAIN MEDICATIONS. WE PLAN TO OBTAIN A UPPER EXTREMITY DOPPLER. THIS SHOULD INCLUDE THE JUGULAR WELL. WE WILL ALSO OBTAIN A MRI OF THE CERVICAL SPINE WITH AN WITHOUT CONTRAST TO ASSESS FOR RESOLUTION OF ABSCESSES AND CLOTS. WE WILL ALSO CONTINUE WITH WOUND CARE. OTHERWISE, WE PLAN TO FOLLOW UP WITH AM LABS AND CONTINUE TO MONITOR. - Past Medical Family Social History Past Med/Fam/Surg Hx: No changes since H&P Allergies: Allergies piperacillin [From Zosyn] Allergy (Verified 11/15/18 01:17) tazobactam [From Zosyn] Allergy (Verified 11/15/18 01:17) dexamethasone Adverse Reaction (Verified 03/06/18 13:42) morphine Adverse Reaction (Verified 03/06/18 13:42) - Review of Systems ROS: No change since H&P - Vital Signs and I&O's Vital Signs: Temperature 97.9 F Pulse Rate [Bilateral Radial] 116 Pulse Rate 117 Respiratory Rate 21 Blood Pressure [Left Calf] 120/55 Blood Pressure [Left Arm] 98/59 Blood Pressure [Right Arm] 118/68 Blood Pressure 120/58 O2 Sat by Pulse Oximetry 97 Intake and Output: Intake & Output 12/03/18 12/04/18 12/05/18 12/06/18 11:59 11:59 11:59 11:59 Intake Total 550 / 550 1386 / 1386 4734 / 4734 873 / 873 Balance 550 / 550 1386 / 1386 4734 / 4734 873 / 873 - Physical Exam Oriented: Normal Eyes: Normal Ear: Normal Nose: Normal Throat: Normal Respiratory: Generalized, Diminished Cardiovascular: Normal : Normal Auscultation: Bowel Sounds: Normal Palpation: Normal Tenderness: Normal Skin: Wound (RIGHT SHOULER WOUND, LEFT CHEST WALL WOUND, LEFT ELBOW WOUND. SEE WOUND ASSESSMENT ) Musculoskeletal: Right, Left, Shoulder, Elbow (LEFT ELBOW PAIN), Tender Psychiatric: Normal Mood Description: Calm Affect: Normal Speech Pattern: Clear, Appropriate - Laboratory and Diagnostics Result Diagrams: 12/05/18 04:53 12/05/18 04:53 Labs: Laboratory WBC 6.4 X10^3/uL (3.6-10.0) 12/05/18 04:53 RBC 3.15 X10^6/uL (3.5-5.4) L 12/05/18 04:53 Hgb 8.7 g/dL (12.0-16.0) L 12/05/18 04:53 Hct 26.6 % (36.0-47.0) L 12/05/18 04:53 MCV 84.4 fL (80.0-100.0) 12/05/18 04:53 MCH 27.7 pg (27.0-34.0) 12/05/18 04:53 MCHC 32.9 g/dL (33.0-35.0) L 12/05/18 04:53 RDW 15.9 % (11.6-16.5) 12/05/18 04:53 Plt Count 471 X10^3/uL (150.0-450.0) H 12/05/18 04:53 MPV 8.1 fL (7.4-11.0) 12/05/18 04:53 Neut % (Auto) 57.2 % (42.0-75.0) 12/05/18 04:53 Lymph % (Auto) 28.0 % (21.0-51.0) 12/05/18 04:53 [place] % (Auto) 9.8 % (0.0-13.0) 12/05/18 04:53 Eos % (Auto) 4.4 % (0.9-2.9) H 12/05/18 04:53 Baso % (Auto) 0.6 % (0.2-1.0) 12/05/18 04:53 Neut # (Auto) 3.7 x10^3/uL (2.2-4.8) 12/05/18 04:53 Lymph # (Auto) 1.8 X10^3/uL (1.3-2.9) 12/05/18 04:53 [place] # (Auto) 0.6 x10^3/uL (0.3-0.8) 12/05/18 04:53 Eos # (Auto) 0.3 x10^3/uL (0.0-0.2) H 12/05/18 04:53 Baso # (Auto) 0.0 X10^3/uL (0.0-0.1) 12/05/18 04:53 Absolute Nucleated RBC 0.0 /100WBC 12/05/18 04:53 ESR 102 MM/HOUR (0-20) H 12/05/18 04:53 Sodium 137 mmol/L (136-145) 12/05/18 04:53 Corrected Sodium TNP 12/05/18 04:53 Potassium 4.3 mmol/L (3.5-5.1) 12/05/18 04:53 Chloride 102 mmol/L (98-107) 12/05/18 04:53 Carbon Dioxide 23.9 mmol/L (21-32) 12/05/18 04:53 BUN 9 mg/dL (7-18) 12/05/18 04:53 Creatinine 0.57 mg/dL (0.55-1.02) 12/05/18 04:53 Est GFR (MDRD) Af Amer > 60 (>60) 12/05/18 04:53 Est GFR (MDRD) Non-Af > 60 (>60) 12/05/18 04:53 Glucose 94 mg/dL (65-99) 12/05/18 04:53 Calcium 8.9 mg/dL (8.5-10.1) 12/05/18 04:53 Corrected Calcium 10.3 mg/dL (8.5-10.1) H 12/05/18 04:53 Magnesium 1.8 mg/dL (1.7-2.9) 12/02/18 21:52 Total Bilirubin 0.20 mg/dL (0.2-1.0) 12/05/18 04:53 AST 45 Units/L (15-37) H 12/05/18 04:53 ALT 43 Units/L (12-78) 12/05/18 04:53 Alkaline Phosphatase 104 Units/L (46-116) 12/05/18 04:53 C-Reactive Protein 101.30 mg/L (0-3.0) H 12/05/18 04:53 Total Protein 7.2 g/dL (6.4-8.2) 12/05/18 04:53 Albumin 2.2 g/dL (3.4-5.0) L 12/05/18 04:53 Globulin 5.0 g/dL (2.5-4.5) H 12/05/18 04:53 Albumin/Globulin Ratio 0.4 Ratio (1.1-2.1) L 12/05/18 04:53 Specimen Type Clean catch urine 12/03/18 08:40 Urine Color Yellow (YELLOW) 12/03/18 08:40 Urine Appearance Hazy (CLEAR) 12/03/18 08:40 Urine pH 7.0 (5.0 - 8.0) 12/03/18 08:40 Ur Specific [place] 1.015 (1.000-1.030) 12/03/18 08:40 Urine Protein Negative (NEGATIVE) 12/03/18 08:40 Urine Glucose (UA) Negative (NEGATIVE) 12/03/18 08:40 Urine Ketones 1+ (NEGATIVE) 12/03/18 08:40 Urine Occult Blood 1+ (NEGATIVE) 12/03/18 08:40 Urine Nitrite Negative (NEGATIVE) 12/03/18 08:40 Urine Bilirubin Negative (NEGATIVE) 12/03/18 08:40 Urine Urobilinogen Normal (NORMAL) 12/03/18 08:40 Ur Leukocyte Esterase Negative (NEGATIVE) 12/03/18 08:40 Urine RBC 0-2 /HPF (NONE SEEN) 12/03/18 08:40 Urine WBC None seen /HPF (NONE SEEN) 12/03/18 08:40 Ur Squamous Epith Cells Rare /HPF (NEGATIVE) 12/03/18 08:40 Urine Bacteria Negative /HPF (NEGATIVE) 12/03/18 08:40 Ur Culture Indicated? No/not indicated 12/03/18 08:40 - Plan (1) Sepsis due to methicillin susceptible Staphylococcus aureus (MSSA) with acute hypercapnic respiratory failure and septic shock Status: Acute Plan: MEROPENEM, IV FLUIDS, WOUND CARE, CONTINUE TO MONITOR (2) Pneumonia Status: Acute Qualifiers: Pneumonia type: due to unspecified organism Laterality: bilateral Lung location: lower lobe of lung Qualified Code(s): J18.1 - Lobar pneumonia, unspecified organism Plan: MEROPENEM, XOPENEX, CONTINUE TO MONITOR (3) Septic embolism Status: Acute Plan: ELIQUIS 5MG PO BID, CONTINUE TO MONITOR (4) Intractable pain Status: Acute Plan: IV DILAUDID PRN, TORADOL 15MG IV Q12H, PERCOCET 5/325MG PO BID, CONTINUE TO MONITOR
[2018-12-05] MEDS: MERREM VIAL 1,000 MG in NS 100 ML IV + SPIKE MINIBAG* 100 ML IV SCH (21:31)
[2018-12-05] MEDS: MIRALAX POWDER (1 DOSE 17 G) PO SCH (21:31)
[2018-12-06] MEDS: PERCOCET TAB 5/325 MG PO SCH ×4 (03:17→11:29)
[2018-12-06] MEDS: ATIVAN TAB 1 MG PO PRN (03:19)
[2018-12-06] MEDS: BENADRYL INJ 50 MG VIAL IV PRN ×2 (03:19→09:52)
[2018-12-06] MEDS: MERREM VIAL 1,000 MG in NS 100 ML IV + SPIKE MINIBAG* 100 ML IV SCH (05:34)
[2018-12-06] MEDS: XOPENEX 1.25 MG/3 ML NEBULE NEB SCH (05:43)
[2018-12-06 05:52] LABS: BASOPHILS % (AUTO) 0.9 % (0.2-1.0); EOSINOPHILS # (AUTO) 0.4 x10^3/uL (0.0-0.2); EOSINOPHILS % (AUTO) 6.1 % (0.9-2.9); HEMATOCRIT 24.9 % (36.0-47.0); HEMOGLOBIN 8.2 g/dL (12.0-16.0); LYMPHOCYTES # (AUTO) 1.7 X10^3/uL (1.3-2.9); MEAN CORPUSCULAR HEMOGLOBIN 27.7 pg (27.0-34.0); MEAN CORPUSCULAR HGB CONC 33.1 g/dL (33.0-35.0); MEAN CORPUSCULAR VOLUME 83.8 fL (80.0-100.0); MEAN PLATELET VOLUME 7.4 fL (7.4-11.0); MONOCYTES # (AUTO) 0.5 x10^3/uL (0.3-0.8); NEUTROPHILS # (AUTO) 3.1 x10^3/uL (2.2-4.8); PLATELET COUNT 453 X10^3/uL (150.0-450.0); RED BLOOD COUNT 2.97 X10^6/uL (3.5-5.4); RED CELL DISTRIBUTION WIDTH 15.9 % (11.6-16.5); WHITE BLOOD COUNT 5.8 X10^3/uL (3.6-10.0)
[2018-12-06 06:09] LABS: ALANINE AMINOTRANSFERASE 104 Units/L (12-78); ALBUMIN 2.3 g/dL (3.4-5.0); ALKALINE PHOSPHATASE 118 Units/L (46-116); ASPARTATE AMINO TRANSFERASE 91 Units/L (15-37); BLOOD UREA NITROGEN 8 mg/dL (7-18); CALCIUM 9.2 mg/dL (8.5-10.1); CARBON DIOXIDE 24.5 mmol/L (21-32); CHLORIDE 102 mmol/L (98-107); COR CA(FOR HYPOALB) 10.6 mg/dL (8.5-10.1); CREATININE 0.56 mg/dL (0.55-1.02); SODIUM 137 mmol/L (136-145); TOTAL PROTEIN 6.9 g/dL (6.4-8.2); eGFR NON BLACK RACES > 60 (>60)
[2018-12-06] MEDS: COLACE CAP 100 MG PO SCH (08:19)
[2018-12-06] MEDS: MEGACE PO SCH (08:20)
[2018-12-06] MEDS: ELIQUIS PO SCH (08:20)
[2018-12-06] MEDS: PROTONIX INJ 40 MG VIAL IVP SCH (08:20)
[2018-12-06] MEDS: PATIENT'S HOME MEDICATION PO SCH (09:45)
[2018-12-06 13:33] VITALS: BP 129/75
== END 2018-12-06 13:05 | disposition home health service (06) | DRG 871 ==
LOC: ICU 21:21
PROVIDERS: ADMIT Internal Medicine; ATTEND Internal Medicine
DX: E03.8 Other specified hypothyroidism; I82.611 Acute embolism and thrombosis of superficial veins of right upper extremity; R26.89 Other abnormalities of gait and mobility; J96.02 Acute respiratory failure with hypercapnia; R65.21 Severe sepsis with septic shock; K21.9 Gastro-esophageal reflux disease without esophagitis; A41.01 Sepsis due to Methicillin susceptible Staphylococcus aureus; J18.9 Pneumonia, unspecified organism; I82.C12 Acute embolism and thrombosis of left internal jugular vein
CPT/HCPCS: 36415; 71010; 71045; 72156; 80053; 81001; 83735; 85025; 85652; 86140; 93970; 94640; 94669; 97110; 97116; 97162; 97166; 97530; A4216; A4222; B5200; C9113; S0179; J1170; J1200; J1650; J1885; J2185; J2550; J7030; J7050

== ENCOUNTER 2022-11-14 09:42 | Observation (INO) ==
[2022-11-14] MEDS ORDERED: LR 1,000 ML IV 1,000 ML IV ONE (10:00)
[2022-11-14 10:18] VITALS: BMI 24.9
[2022-11-14] MEDS: LR 1,000 ML IV 1,000 ML IV SCH ×2 (10:22→18:32)
[2022-11-14] MEDS: ZOFRAN INJ 4 MG VIAL IVP PRN (10:59)
[2022-11-14 11:37] LABS: BASOPHILS % (AUTO) 0.5 % (0.2-1.0); EOSINOPHILS % (AUTO) 0.6 % (0.9-2.9); HEMATOCRIT 44.5 % (36.0-47.0); HEMOGLOBIN 15.1 g/dL (12.0-16.0); LYMPHOCYTES # (AUTO) 1.6 X10^3/uL (1.3-2.9); LYMPHOCYTES % (AUTO) 25.1 % (21.0-51.0); MEAN CORPUSCULAR HEMOGLOBIN 29.1 pg (27.0-34.0); MEAN CORPUSCULAR HGB CONC 33.9 g/dL (33.0-35.0); MEAN CORPUSCULAR VOLUME 85.8 fL (80.0-100.0); MEAN PLATELET VOLUME 8.6 fL (7.4-11.0); MONOCYTES # (AUTO) 0.4 x10^3/uL (0.3-0.8); MONOCYTES % (AUTO) 6.7 % (0.0-13.0); NEUTROPHILS # (AUTO) 4.4 x10^3/uL (2.2-4.8); NEUTROPHILS % (AUTO) 67.1 % (42.0-75.0); PLATELET COUNT 193 X10^3/uL (150.0-450.0); RED BLOOD COUNT 5.19 X10^6/uL (3.5-5.4); RED CELL DISTRIBUTION WIDTH 13.4 % (11.6-16.5); WHITE BLOOD COUNT 6.5 X10^3/uL (3.6-10.0)
[2022-11-14] MEDS: PHENERGAN INJ 25 MG IM PRN ×2 (11:53→19:16)
[2022-11-14 12:01] LABS: BLOOD UREA NITROGEN 13 mg/dL (7-18); CARBON DIOXIDE 24.7 mmol/L (21-32); CHLORIDE 104 mmol/L (98-107); CREATININE 0.93 mg/dL (0.55-1.02); GLUCOSE 82 mg/dL (65-99); POTASSIUM 3.2 mmol/L (3.5-5.1); SODIUM 141 mmol/L (136-145); eGFR NON BLACK RACES > 60 (>60)
[2022-11-14 12:13] LABS: ALANINE AMINOTRANSFERASE 19 Units/L (12-78); ALBUMIN 4.6 g/dL (3.4-5.0); ALKALINE PHOSPHATASE 85 Units/L (46-116); ASPARTATE AMINO TRANSFERASE 14 Units/L (15-37); TOTAL PROTEIN 6.9 g/dL (6.4-8.2)
[2022-11-14] MEDS ORDERED: POTASSIUM CHLORIDE INJ 40 MEQ VIAL 40 MEQ in NS 1/2 500 ML IV 500 ML IV ONE (16:00)
[2022-11-14] MEDS ORDERED: CONSULT PHARMACY - POTASSIUM & MAGNESIUM XX SCH (16:00)
[2022-11-14] MEDS: [UNRECOGNIZED DRUG - OTHER] IV SCH (16:15)
[2022-11-14] MEDS: ZOFRAN IV SCH (16:15)
[2022-11-14] MEDS: ATIVAN IV SCH (16:15)
[2022-11-14] MEDS: SOLU MEDROL IV SCH (16:15)
[2022-11-14] MEDS ORDERED: PROTONIX INJ 40 MG VIAL IVP SCH (17:00)
[2022-11-14] MEDS: AMBIEN PO PRN (20:24)
[2022-11-14] MEDS ORDERED: BENADRYL INJ 50 MG VIAL IVP ONE (21:14)
--- NOTE | 2022-11-14 21:28 | DR.H&P ---
H&P History & Physical for Day of: H&P Date: 11/14/22 Chief Complaint Chief Complaint: Intractable nausea and vomiting. Allergies Allergies Allergy/AdvReac Type Severity Reaction Status Date / Time dexamethasone Allergy Unknown Verified 09/21/22 15:00 morphine Allergy Unknown Verified 09/21/22 15:00 piperacillin [From Zosyn] Allergy Verified 09/21/22 15:00 tazobactam [From Zosyn] Allergy Verified 09/21/22 15:00 History of Present Illness History of Present Illness: This is a pleasant 42-year-old white female well- known to me. She does have a history of cyclical vomiting in the past with only thing that has worked is a Zofran cocktail bag that consist of 32 mg of Zofran, steroids and Ativan. Previously they have been giving her dexamethasone for the steroids but this caused her to have generalized edema the last time she received it. She has received other steroids since then and has done fine. I did see in the office yesterday because of this intractable nausea vomiting that has been going on for 4 days now. He started afternoon of last week which is now 4 days ago. I did give her a shot of Zofran 8 mg IM along with Kenalog 40 mg IM as well. I spoke with her the following morning and it did not help her nausea no vomiting at all. She has continued to vomit and have persistent nausea since the treatment and is not getting better. When I spoke to her this morning I told her I will get in touch with general surgeon, Dr. Greenberg and see if he can see her today since he diagnosed her with cyclical vomiting some years back but he recommended direct admitting her to the hospital which I did. Past Medical History Past Medical History: Anemia, Arthritis, GERD and Hypothyroidism Past Surgical History Surgical History: Cholecystectomy, Ortho Surgery and Tonsillectomy Additional Surgical History: Neck surgery x2 Family History Family Medical History: Cancer, [place] and Hypertension Social History Does patient currently use any type of tobacco product: Yes Type of Tobacco Use: Smokeless Alcohol Use: Rarely Drug Use: None Medications Home Medications: Home Medications Medication Instructions Recorded Confirmed Type pantoprazole 40 mg tablet,delayed 40 mg PO DAILY 04/01/19 11/14/22 History release Labs 11/14/22 11:26 11/14/22 11:26 Labs: Laboratory WBC 6.5 X10^3/uL (3.6-10.0) 11/14/22 11:26 RBC 5.19 X10^6/uL (3.5-5.4) 11/14/22 11:26 Hgb 15.1 g/dL (12.0-16.0) 11/14/22 11:26 Hct 44.5 % (36.0-47.0) 11/14/22 11:26 MCV 85.8 fL (80.0-100.0) 11/14/22 11:26 MCH 29.1 pg (27.0-34.0) 11/14/22 11:26 MCHC 33.9 g/dL (33.0-35.0) 11/14/22 11: RDW 13.4 % (11.6-16.5) 11/14/22 11:26 Plt Count 193 X10^3/uL (150.0-450.0) 11/14/22 11:26 MPV 8.6 fL (7.4-11.0) 11/14/22 11:26 Neut % (Auto) 67.1 % (42.0-75.0) 11/14/22 11:26 Lymph % (Auto) 25.1 % (21.0-51.0) 11/14/22 11:26 [place] % (Auto) 6.7 % (0.0-13.0) 11/14/22 11:26 Eos % (Auto) 0.6 % (0.9-2.9) L 11/14/22 11:26 Baso % (Auto) 0.5 % (0.2-1.0) 11/14/22 11:26 Neut # (Auto) 4.4 x10^3/uL (2.2-4.8) 11/14/22 11:26 Lymph # (Auto) 1.6 X10^3/uL (1.3-2.9) 11/14/22 11:26 [place] # (Auto) 0.4 x10^3/uL (0.3-0.8) 11/14/22 11:26 Eos # (Auto) 0.0 x10^3/uL (0.0-0.2) 11/14/22 11:26 Baso # (Auto) 0.0 X10^3/uL (0.0-0.1) 11/14/22 11:26 Absolute Nucleated RBC 0.1 /100WBC 11/14/22 11:26 Sodium 141 mmol/L (136-145) 11/14/22 11:26 Corrected Sodium TNP 11/14/22 11:26 Potassium 3.2 mmol/L (3.5-5.1) L 11/14/22 11:26 Chloride 104 mmol/L (98-107) 11/14/22 11:26 Carbon Dioxide 24.7 mmol/L (21-32) 11/14/22 11:26 BUN 13 mg/dL (7-18) 11/14/22 11:26 Creatinine 0.93 mg/dL (0.55-1.02) 11/14/22 11:26 Est GFR (MDRD) Af Amer > 60 (>60) 11/14/22 11:26 Est GFR (MDRD) Non-Af > 60 (>60) 11/14/22 11:26 Glucose 82 mg/dL (65-99) 11/14/22 11:26 Calcium 9.0 mg/dL (8.5-10.1) 11/14/22 11:26 Corrected Calcium TNP 11/14/22 11:26 Magnesium 2.2 mg/dL (2.0-2.9) 11/14/22 11:26 Total Bilirubin 0.40 mg/dL (0.2-1.0) 11/14/22 11:26 AST 14 Units/L (15-37) L 11/14/22 11:26 ALT 19 Units/L (12-78) 11/14/22 11:26 Alkaline Phosphatase 85 Units/L (46-116) 11/14/22 11:26 Total Protein 6.9 g/dL (6.4-8.2) 11/14/22 11:26 Albumin 4.6 g/dL (3.4-5.0) 11/14/22 11:26 Globulin 2.3 g/dL (2.5-4.5) L 11/14/22 11:26 Albumin/Globulin Ratio 2.0 Ratio (1.1-2.1) 11/14/22 11:26 Review of Systems Constitutional: Weakness and Malaise Eyes: No Symptoms Reported ENT: No Symptoms Reported Respiratory: No Symptoms Reported Cardiovascular: No Symptoms Reported Gastrointestinal: Nausea and Vomiting; denies Abdominal Pain, Diarrhea, Constipation, Melena or Hematochezia Genitourinary: No Symptoms Reported Musculoskeletal: No Symptoms Reported Skin: No Symptoms Reported Neurological: Weakness; denies Numbness, Incoordination, Change in Speech or Confusion Physical Exam Vital Signs: Vital Signs Temperature 98.1 F Pulse Rate 95 Pulse Rate 103 Pulse Rate 103 Pulse Rate 84 Pulse Rate 88 Pulse Rate 87 Pulse Rate 87 Pulse Rate 86 Pulse Rate 99 Pulse Rate 87 Pulse Rate 101 Blood Pressure 98/56 O2 Sat by Pulse Oximetry 95 O2 Sat by Pulse Oximetry 95 O2 Sat by Pulse Oximetry 98 O2 Sat by Pulse Oximetry 97 O2 Sat by Pulse Oximetry 97 O2 Sat by Pulse Oximetry 95 O2 Sat by Pulse Oximetry 95 O2 Sat by Pulse Oximetry 95 O2 Sat by Pulse Oximetry 97 O2 Sat by Pulse Oximetry 99 O2 Sat by Pulse Oximetry 96 Oriented: Normal, Time, Person and Place Eyes: Normal Ear: Normal Nose: Normal Throat: Normal Respiratory: Clear Throughout Cardiovascular: Normal : Normal Palpation: Normal Tenderness: Normal Skin: Normal Musculoskeletal: Normal Psychiatric: Anxiety and Depression; negative Agitation Mood Description: Calm and Depressed; negative Angry, Apathetic, Fearful, Flat, Happy, Hostile, Sad, Suspicious, Withdrawn or Anxious Affect: Normal Speech Pattern: Clear and Appropriate; negative Unclear, Inappropriate, Delayed, Slurred or Excessive Assessment/Plan (1) Cyclical vomiting syndrome: Status: Chronic Plan: Direct admission to [facility] and start the patient on IV Zofran and and over him Phenergan. If this is not helping we will start her on IV drip with a IV fluid bag with 32 mg of Zofran, 2 mg of Ativan and IV Solu- Medrol since she is allergic to dexamethasone.I will also consult general surgeon, Dr. Greenberg who has treated her in the past for the same thing. I did call and discussed niko this with his nurse this morning in he probably will end up doing EGD tomorrow morning. We will make her n.p.o. after midnight. (2) Hypokalemia: Status: Acute Plan: Potassium replacement protocol. Review H&P Reviewed: Yes Patient was examined?: Yes
[2022-11-14] MEDS ORDERED: AMBIEN PO ONE (23:10)
[2022-11-14] MEDS ORDERED: ATARAX TAB 25 MG PO ONE (23:56)
[2022-11-15] MEDS: [UNRECOGNIZED DRUG - OTHER] IV SCH ×3 (00:24→15:51)
[2022-11-15] MEDS: ZOFRAN IV SCH ×3 (00:24→15:51)
[2022-11-15] MEDS: ATIVAN IV SCH ×3 (00:24→15:51)
[2022-11-15] MEDS: SOLU MEDROL IV SCH ×3 (00:24→15:51)
[2022-11-15] MEDS: LR 1,000 ML IV 1,000 ML IV SCH ×4 (02:39→18:27)
[2022-11-15] MEDS: ZOFRAN INJ 4 MG VIAL IVP PRN ×2 (04:32→13:00)
[2022-11-15 05:41] LABS: BASOPHILS % (AUTO) 0.1 % (0.2-1.0); HEMATOCRIT 40.5 % (36.0-47.0); HEMOGLOBIN 13.9 g/dL (12.0-16.0); LYMPHOCYTES % (AUTO) 15.2 % (21.0-51.0); MEAN CORPUSCULAR HEMOGLOBIN 29.1 pg (27.0-34.0); MEAN CORPUSCULAR HGB CONC 34.3 g/dL (33.0-35.0); MEAN CORPUSCULAR VOLUME 84.7 fL (80.0-100.0); MEAN PLATELET VOLUME 9.4 fL (7.4-11.0); MONOCYTES # (AUTO) 0.1 x10^3/uL (0.3-0.8); MONOCYTES % (AUTO) 0.8 % (0.0-13.0); NEUTROPHILS # (AUTO) 5.5 x10^3/uL (2.2-4.8); NEUTROPHILS % (AUTO) 83.9 % (42.0-75.0); PLATELET COUNT 217 X10^3/uL (150.0-450.0); RED BLOOD COUNT 4.79 X10^6/uL (3.5-5.4); RED CELL DISTRIBUTION WIDTH 13.1 % (11.6-16.5); WHITE BLOOD COUNT 6.6 X10^3/uL (3.6-10.0)
[2022-11-15] MEDS: PHENERGAN INJ 25 MG IM PRN ×2 (05:43→15:21)
[2022-11-15 05:48] LABS: BLOOD UREA NITROGEN 9 mg/dL (7-18); CARBON DIOXIDE 24.1 mmol/L (21-32); CHLORIDE 107 mmol/L (98-107); COR NA(FOR HYPERGLY) 143 mmol/L (136-145); CREATININE 0.84 mg/dL (0.55-1.02); GLUCOSE 117 mg/dL (65-99); POTASSIUM 3.8 mmol/L (3.5-5.1); SODIUM 143 mmol/L (136-145); eGFR NON BLACK RACES > 60 (>60)
[2022-11-15 06:12] LABS: BILIRUBIN,URINE NEGATIVE (NEGATIVE); BLOOD/HEMOGLOBIN,URINE 1+ (NEGATIVE); GLUCOSE, URINE NEGATIVE (NEGATIVE); KETONES,URINE 3+ (NEGATIVE); LEUKOCYTE ESTERASE ,URINE NEGATIVE (NEGATIVE); NITRITES,URINE NEGATIVE (NEGATIVE); PROTEIN,URINE NEGATIVE (NEGATIVE); UROBILINOGEN,URINE NORMAL (NORMAL)
[2022-11-15 06:13] LABS: ALANINE AMINOTRANSFERASE 16 Units/L (12-78); ALBUMIN 4.3 g/dL (3.4-5.0); ALKALINE PHOSPHATASE 82 Units/L (46-116); ASPARTATE AMINO TRANSFERASE 9 Units/L (15-37); TOTAL PROTEIN 6.5 g/dL (6.4-8.2)
[2022-11-15 06:20] LABS: APPEARANCE,URINE CLEAR (CLEAR); BACTERIA,URINE TRACE /HPF (NEGATIVE); COLOR,URINE YELLOW (YELLOW); RBC,URINE 0-2 /HPF (0-3); SQUAMOUS EPITHELIAL CELL,UR FEW /HPF (NEGATIVE)
[2022-11-15] MEDS ORDERED: K-DUR TAB 20 MEQ PO SCH (08:00)
[2022-11-15] MEDS ORDERED: CONSULT PHARMACY - POTASSIUM & MAGNESIUM XX SCH (08:00)
[2022-11-15] MEDS ORDERED: DILAUDID INJ IVP ONE ×2 (08:30→14:29)
[2022-11-15] MEDS: PROTONIX INJ 40 MG VIAL IVP SCH ×2 (09:17→20:33)
[2022-11-15] MEDS ORDERED: DIPRIVAN VIAL 20 ML ONE (09:57)
[2022-11-15] MEDS ORDERED: NS 1,000 ML IV 1,000 ML ONE (10:23)
[2022-11-15] MEDS ORDERED: ATIVAN INJ 2 MG VIAL IVP PRN (10:42)
[2022-11-15] MEDS ORDERED: PROTONIX INJ 40 MG VIAL IVP SCH (11:00)
[2022-11-15] MEDS ORDERED: K-DUR TAB 20 MEQ PO ONE (13:00)
--- NOTE | 2022-11-15 15:25 | PCM.PROG ---
Progress Note Progress Note for Day of Date of Exam: 11/15/22 Subjective Subjective: The patient is alert and awake this morning. She reports a terrible headache pounding after vomiting four times this morning. The EGD showed that the patient had multiple small ulcers around the GE junction as well as gastritis and multiple polyps in the stomach as well. The multiple polyps are associated with hyperacidity. Past Medical Family Social History Allergies: Allergies dexamethasone Allergy (Unknown, Verified 09/21/22 15:00) Reason: Drug allergy; Comments: Caused facial swelling morphine Allergy (Unknown, Verified 09/21/22 15:00) Reason: Drug allergy piperacillin [From Zosyn] Allergy (Verified 09/21/22 15:00) tazobactam [From Zosyn] Allergy (Verified 09/21/22 15:00) Review of Systems ROS: No change since H&P Vital Signs and I&O's Vital Signs: Vital Signs Temperature 97.8 F Pulse Rate 110 Pulse Rate 112 Pulse Rate 114 Pulse Rate 110 Pulse Rate 96 Pulse Rate 91 Pulse Rate 99 Pulse Rate 97 Pulse Rate 96 Pulse Rate 123 Pulse Rate 102 Pulse Rate 95 Pulse Rate 99 Pulse Rate 98 Pulse Rate 94 Respiratory Rate 17 Respiratory Rate 17 Blood Pressure 108/57 Blood Pressure 131/61 O2 Sat by Pulse Oximetry 97 O2 Sat by Pulse Oximetry 97 O2 Sat by Pulse Oximetry 100 O2 Sat by Pulse Oximetry 100 O2 Sat by Pulse Oximetry 99 O2 Sat by Pulse Oximetry 96 O2 Sat by Pulse Oximetry 98 O2 Sat by Pulse Oximetry 98 O2 Sat by Pulse Oximetry 99 O2 Sat by Pulse Oximetry 98 O2 Sat by Pulse Oximetry 99 O2 Sat by Pulse Oximetry 97 O2 Sat by Pulse Oximetry 98 O2 Sat by Pulse Oximetry 98 O2 Sat by Pulse Oximetry 98 Intake and Output: Intake & Output 11/13/22 11/14/22 11/15/22 11/16/22 11:59 11:59 11:59 11:59 Intake Total 1443 / 1443 Balance 1443 / 1443 Physical Exam Oriented: Normal, Time, Person and Place Eyes: Normal Ear: Normal Nose: Normal Throat: Normal Respiratory: Normal Cardiovascular: Normal : Normal Tenderness: Normal Skin: Normal Musculoskeletal: Normal Psychiatric: Anxiety and Depression; negative Agitation Mood Description: Calm and Depressed; negative Angry, Apathetic, Fearful, Flat, Happy, Hostile, Sad, Suspicious, Withdrawn or Anxious Affect: Normal Speech Pattern: Appropriate Laboratory and Diagnostics 11/15/22 04:11 11/15/22 04:11 Labs: Laboratory WBC 6.6 X10^3/uL (3.6-10.0) 11/15/22 04:11 RBC 4.79 X10^6/uL (3.5-5.4) 11/15/22 04:11 Hgb 13.9 g/dL (12.0-16.0) 11/15/22 04:11 Hct 40.5 % (36.0-47.0) 11/15/22 04:11 MCV 84.7 fL (80.0-100.0) 11/15/22 04:11 MCH 29.1 pg (27.0-34.0) 11/15/22 04:11 MCHC 34.3 g/dL (33.0-35.0) 11/15/22 04:11 RDW 13.1 % (11.6-16.5) 11/15/22 04:11 Plt Count 217 X10^3/uL (150.0-450.0) 11/15/22 04:11 MPV 9.4 fL (7.4-11.0) 11/15/22 04:11 Neut % (Auto) 83.9 % (42.0-75.0) H 11/15/22 04:11 Lymph % (Auto) 15.2 % (21.0-51.0) L 11/15/22 04:11 [place] % (Auto) 0.8 % (0.0-13.0) 11/15/22 04:11 Eos % (Auto) 0.0 % (0.9-2.9) L 11/15/22 04:11 Baso % (Auto) 0.1 % (0.2-1.0) L 11/15/22 04:11 Neut # (Auto) 5.5 x10^3/uL (2.2-4.8) H 11/15/22 04:11 Lymph # (Auto) 1.0 X10^3/uL (1.3-2.9) L 11/15/22 04:11 [place] # (Auto) 0.1 x10^3/uL (0.3-0.8) L 11/15/22 04:11 Eos # (Auto) 0.0 x10^3/uL (0.0-0.2) 11/15/22 04:11 Baso # (Auto) 0.0 X10^3/uL (0.0-0.1) 11/15/22 04:11 Absolute Nucleated RBC 0.0 /100WBC 11/15/22 04:11 Sodium 143 mmol/L (136-145) 11/15/22 04:11 Corrected Sodium 143 mmol/L (136-145) 11/15/22 04:11 Potassium 3.8 mmol/L (3.5-5.1) 11/15/22 04:11 Chloride 107 mmol/L (98-107) 11/15/22 04:11 Carbon Dioxide 24.1 mmol/L (21-32) 11/15/22 04:11 BUN 9 mg/dL (7-18) 11/15/22 04:11 Creatinine 0.84 mg/dL (0.55-1.02) 11/15/22 04:11 Est GFR (MDRD) Af Amer > 60 (>60) 11/15/22 04:11 Est GFR (MDRD) Non-Af > 60 (>60) 11/15/22 04:11 Glucose 117 mg/dL (65-99) H 11/15/22 04:11 Calcium 9.0 mg/dL (8.5-10.1) 11/15/22 04:11 Corrected Calcium TNP 11/15/22 04:11 Magnesium 2.3 mg/dL (2.0-2.9) 11/15/22 04:11 Total Bilirubin 0.40 mg/dL (0.2-1.0) 11/15/22 04:11 AST 9 Units/L (15-37) L 11/15/22 04:11 ALT 16 Units/L (12-78) 11/15/22 04:11 Alkaline Phosphatase 82 Units/L (46-116) 11/15/22 04:11 Total Protein 6.5 g/dL (6.4-8.2) 11/15/22 04:11 Albumin 4.3 g/dL (3.4-5.0) 11/15/22 04:11 Globulin 2.2 g/dL (2.5-4.5) L 11/15/22 04:11 Albumin/Globulin Ratio 2.0 Ratio (1.1-2.1) 11/15/22 04:11 Specimen Type Clean catch urine 11/15/22 05:45 Urine Color Yellow (YELLOW) 11/15/22 05:45 Urine Appearance Clear (CLEAR) 11/15/22 05:45 Urine pH 6.0 (5.0 - 8.0) 11/15/22 05:45 Ur Specific [place] 1.010 (1.000-1.030) 11/15/22 05:45 Urine Protein Negative (NEGATIVE) 11/15/22 05:45 Urine Glucose (UA) Negative (NEGATIVE) 11/15/22 05:45 Urine Ketones 3+ (NEGATIVE) 11/15/22 05:45 Urine Blood 1+ (NEGATIVE) 11/15/22 05:45 Urine Nitrite Negative (NEGATIVE) 11/15/22 05:45 Urine Bilirubin Negative (NEGATIVE) 11/15/22 05:45 Urine Urobilinogen Normal (NORMAL) 11/15/22 05:45 Ur Leukocyte Esterase Negative (NEGATIVE) 11/15/22 05:45 Urine RBC 0-2 /HPF (0-3) 11/15/22 05:45 Urine WBC 0-2 /HPF (0-5) 11/15/22 05:45 Ur Squamous Epith Cells Few /HPF (NEGATIVE) 11/15/22 05:45 Urine Bacteria Trace /HPF (NEGATIVE) 11/15/22 05:45 Ur Culture Indicated? No/not indicated 11/15/22 05:45 Influenza Type A Ag Negative-presumptive (NEGATIVE) 11/14/22 22:50 Influenza Type B Ag Negative-presumptive (NEGATIVE) 11/14/22 22:50 Plan (1) Cyclical vomiting syndrome: Status: Chronic Plan: Continue Zofran cocktail infusions every 8 hours for control of nausea and vomiting. The patient was found to have a gastric ulcer gastritis t jhonatan so we will continue her on IV Protonix as well. We will start her on a clear liquid diet and advance it as tolerated and once she is able to keep food down we will plan on discharging her home. (2) Hypokalemia: Status: Acute Plan: Potassium replacement protocol. (3) Gastritis: Status: Acute Qualifiers: Gastritis type: superficial Plan: Continue IV Protonix. (4) Gastric ulcer: Status: Acute Plan: Continue IV Protonix. (5) Multiple gastric polyps: Status: Acute Plan: Follow-up biopsy of gastric polyps.
[2022-11-15] MEDS: AMBIEN PO PRN (20:33)
[2022-11-16] MEDS: ATIVAN IV SCH ×3 (01:08→07:59)
[2022-11-16] MEDS: [UNRECOGNIZED DRUG - OTHER] IV SCH ×3 (01:08→07:59)
[2022-11-16] MEDS: LR 1,000 ML IV 1,000 ML IV SCH (01:08)
[2022-11-16] MEDS: ZOFRAN IV SCH ×3 (01:08→07:59)
[2022-11-16] MEDS: SOLU MEDROL IV SCH ×3 (01:08→07:59)
[2022-11-16] MEDS: PHENERGAN INJ 25 MG IM PRN (04:29)
[2022-11-16 05:12] LABS: BASOPHILS % (AUTO) 0.2 % (0.2-1.0); HEMATOCRIT 37.8 % (36.0-47.0); HEMOGLOBIN 12.9 g/dL (12.0-16.0); LYMPHOCYTES # (AUTO) 1.6 X10^3/uL (1.3-2.9); LYMPHOCYTES % (AUTO) 13.1 % (21.0-51.0); MEAN CORPUSCULAR HGB CONC 34.1 g/dL (33.0-35.0); MEAN CORPUSCULAR VOLUME 85.1 fL (80.0-100.0); MEAN PLATELET VOLUME 9.8 fL (7.4-11.0); MONOCYTES # (AUTO) 0.6 x10^3/uL (0.3-0.8); MONOCYTES % (AUTO) 5.1 % (0.0-13.0); NEUTROPHILS # (AUTO) 9.8 x10^3/uL (2.2-4.8); NEUTROPHILS % (AUTO) 81.6 % (42.0-75.0); PLATELET COUNT 216 X10^3/uL (150.0-450.0); RED BLOOD COUNT 4.45 X10^6/uL (3.5-5.4); RED CELL DISTRIBUTION WIDTH 12.9 % (11.6-16.5)
[2022-11-16 05:19] LABS: ALANINE AMINOTRANSFERASE 12 Units/L (12-78); ALBUMIN 3.8 g/dL (3.4-5.0); ALKALINE PHOSPHATASE 74 Units/L (46-116); ASPARTATE AMINO TRANSFERASE 7 Units/L (15-37); BLOOD UREA NITROGEN 6 mg/dL (7-18); CALCIUM 8.6 mg/dL (8.5-10.1); CARBON DIOXIDE 26.7 mmol/L (21-32); CHLORIDE 104 mmol/L (98-107); COR NA(FOR HYPERGLY) 141 mmol/L (136-145); CREATININE 0.86 mg/dL (0.55-1.02); GLUCOSE 141 mg/dL (65-99); POTASSIUM 3.7 mmol/L (3.5-5.1); SODIUM 140 mmol/L (136-145); eGFR NON BLACK RACES > 60 (>60)
[2022-11-16] MEDS: PROTONIX INJ 40 MG VIAL IVP SCH (09:05)
[2022-11-16 09:15] VITALS: BP 107/56; PULSE 63; RESP 18; TEMP 98; O2SAT 98
== END 2022-11-16 09:40 | disposition home or self-care (01) ==
LOC: ICU
PROVIDERS: ADMIT Family Medicine; ATTEND Family Medicine
DX: K29.70 Gastritis, unspecified, without bleeding; F41.8 Other specified anxiety disorders; K21.00 Gastro-esophageal reflux disease with esophagitis, without bleeding; G43.A0 Cyclical vomiting, in migraine, not intractable; E87.6 Hypokalemia; K22.10 Ulcer of esophagus without bleeding; K25.9 Gastric ulcer, unspecified as acute or chronic, without hemorrhage or perforation; K31.7 Polyp of stomach and duodenum; E86.0 Dehydration

== ENCOUNTER 2023-12-25 13:36 | Observation (INO) ==
[2023-12-25 15:26] LABS: BASOPHILS % (AUTO) 0.5 % (0.2-1.0); EOSINOPHILS # (AUTO) 0.1 x10^3/uL (0.0-0.2); EOSINOPHILS % (AUTO) 1.5 % (0.9-2.9); HEMATOCRIT 41.1 % (36.0-47.0); LYMPHOCYTES # (AUTO) 2.1 X10^3/uL (1.3-2.9); LYMPHOCYTES % (AUTO) 41.3 % (21.0-51.0); MEAN CORPUSCULAR HEMOGLOBIN 29.1 pg (27.0-34.0); MEAN CORPUSCULAR HGB CONC 34.1 g/dL (33.0-35.0); MEAN CORPUSCULAR VOLUME 85.3 fL (80.0-100.0); MEAN PLATELET VOLUME 8.8 fL (7.4-11.0); MONOCYTES # (AUTO) 0.4 x10^3/uL (0.3-0.8); MONOCYTES % (AUTO) 8.4 % (0.0-13.0); NEUTROPHILS # (AUTO) 2.5 x10^3/uL (2.2-4.8); NEUTROPHILS % (AUTO) 48.3 % (42.0-75.0); PLATELET COUNT 185 X10^3/uL (150.0-450.0); RED BLOOD COUNT 4.82 X10^6/uL (3.5-5.4); RED CELL DISTRIBUTION WIDTH 12.9 % (11.6-16.5); WHITE BLOOD COUNT 5.2 X10^3/uL (3.6-10.0)
[2023-12-25 15:35] LABS: ALANINE AMINOTRANSFERASE 26 Units/L (12-78); ALBUMIN 3.8 g/dL (3.4-5.0); ALKALINE PHOSPHATASE 65 Units/L (46-116); ASPARTATE AMINO TRANSFERASE 12 Units/L (15-37); BLOOD UREA NITROGEN 10 mg/dL (7-18); CALCIUM 8.9 mg/dL (8.5-10.1); CHLORIDE 101 mmol/L (98-107); CREATININE 0.92 mg/dL (0.55-1.02); GLUCOSE 96 mg/dL (65-99); POTASSIUM 3.7 mmol/L (3.5-5.1); SODIUM 137 mmol/L (136-145); TOTAL PROTEIN 6.4 g/dL (6.4-8.2); eGFR NON BLACK RACES > 60 (>60)
[2023-12-25] MEDS: ATIVAN INJ 2 MG VIAL IVP SCH (16:28)
[2023-12-25] MEDS: PROTONIX INJ 40 MG VIAL IVP SCH (16:28)
[2023-12-25] MEDS: LR 1,000 ML IV 1,000 ML with MVI INJ (ADULT) 10 ML IV SCH (16:29)
[2023-12-25 18:04] VITALS: BMI 23.6
[2023-12-25] MEDS: ZOFRAN INJ 4 MG VIAL IVP PRN (18:36)
[2023-12-25] MEDS: DILAUDID INJ IVP PRN (19:28)
[2023-12-25] MEDS: HIBICLENS WASH EXT ONE (22:26)
[2023-12-25] MEDS: AMBIEN PO PRN (22:28)
[2023-12-25] MEDS ORDERED: LR 1,000 ML IV 1,000 ML IV ONE (23:55)
[2023-12-26 06:27] LABS: BASOPHILS % (AUTO) 0.6 % (0.2-1.0); EOSINOPHILS # (AUTO) 0.1 x10^3/uL (0.0-0.2); EOSINOPHILS % (AUTO) 2.6 % (0.9-2.9); HEMATOCRIT 35.7 % (36.0-47.0); HEMOGLOBIN 12.3 g/dL (12.0-16.0); LYMPHOCYTES # (AUTO) 1.8 X10^3/uL (1.3-2.9); LYMPHOCYTES % (AUTO) 46.4 % (21.0-51.0); MEAN CORPUSCULAR HEMOGLOBIN 29.4 pg (27.0-34.0); MEAN CORPUSCULAR HGB CONC 34.5 g/dL (33.0-35.0); MEAN CORPUSCULAR VOLUME 85.2 fL (80.0-100.0); MEAN PLATELET VOLUME 9.1 fL (7.4-11.0); MONOCYTES # (AUTO) 0.3 x10^3/uL (0.3-0.8); MONOCYTES % (AUTO) 8.2 % (0.0-13.0); NEUTROPHILS # (AUTO) 1.7 x10^3/uL (2.2-4.8); NEUTROPHILS % (AUTO) 42.2 % (42.0-75.0); PLATELET COUNT 140 X10^3/uL (150.0-450.0); RED BLOOD COUNT 4.19 X10^6/uL (3.5-5.4); RED CELL DISTRIBUTION WIDTH 12.7 % (11.6-16.5)
[2023-12-26 06:40] LABS: ALANINE AMINOTRANSFERASE 21 Units/L (12-78); ALBUMIN 3.4 g/dL (3.4-5.0); ALKALINE PHOSPHATASE 56 Units/L (46-116); ASPARTATE AMINO TRANSFERASE 10 Units/L (15-37); BLOOD UREA NITROGEN 7 mg/dL (7-18); CALCIUM 8.4 mg/dL (8.5-10.1); CARBON DIOXIDE 27.9 mmol/L (21-32); CHLORIDE 99 mmol/L (98-107); CREATININE 0.82 mg/dL (0.55-1.02); GLUCOSE 92 mg/dL (65-99); MAGNESIUM 1.8 mg/dL (2.0-2.9); POTASSIUM 3.1 mmol/L (3.5-5.1); SODIUM 133 mmol/L (136-145); TOTAL PROTEIN 5.6 g/dL (6.4-8.2); eGFR NON BLACK RACES > 60 (>60)
[2023-12-26] MEDS: PHENERGAN INJ 25 MG IM PRN (13:32)
[2023-12-26] MEDS: NS 500 ML IV 500 ML IV ONE (14:53)
[2023-12-26] MEDS: ZOFRAN INJ 4 MG VIAL ONE (15:12)
[2023-12-26] MEDS: DIPRIVAN VIAL 0 ML ONE (15:12)
[2023-12-26] MEDS: DIPRIVAN VIAL 20 ML ONE (15:23)
[2023-12-26] MEDS ORDERED: CONSULT PHARMACY - POTASSIUM & MAGNESIUM XX SCH (16:00)
[2023-12-26] MEDS: POTASSIUM CHLORIDE INJ 40 MEQ VIAL 40 MEQ, MAGNESIUM SULFATE 50% INJ VIAL 4 G in NS 500... IV ONE (16:01)
[2023-12-27] MEDS: CARAFATE ORAL SUSP PO SCH (00:11)
[2023-12-27 06:01] LABS: EOSINOPHILS # (AUTO) 0.1 x10^3/uL (0.0-0.2); HEMOGLOBIN 13.4 g/dL (12.0-16.0); MONOCYTES # (AUTO) 0.3 x10^3/uL (0.3-0.8); MONOCYTES % (AUTO) 7.7 % (0.0-13.0); NEUTROPHILS # (AUTO) 1.9 x10^3/uL (2.2-4.8); PLATELET COUNT 171 X10^3/uL (150.0-450.0)
[2023-12-27 06:04] LABS: BLOOD UREA NITROGEN 7 mg/dL (7-18); CALCIUM 8.1 mg/dL (8.5-10.1); CARBON DIOXIDE 31.5 mmol/L (21-32); CHLORIDE 104 mmol/L (98-107); CREATININE 0.91 mg/dL (0.55-1.02); GLUCOSE 78 mg/dL (65-99); POTASSIUM 3.6 mmol/L (3.5-5.1); SODIUM 140 mmol/L (136-145); eGFR NON BLACK RACES > 60 (>60)
[2023-12-27 06:15] LABS: BASOPHILS % (AUTO) 0.5 % (0.2-1.0); EOSINOPHILS % (AUTO) 2.5 % (0.9-2.9); HEMATOCRIT 39.6 % (36.0-47.0); LYMPHOCYTES % (AUTO) 45.5 % (21.0-51.0); MEAN CORPUSCULAR HEMOGLOBIN 29.3 pg (27.0-34.0); MEAN CORPUSCULAR HGB CONC 33.9 g/dL (33.0-35.0); MEAN CORPUSCULAR VOLUME 86.4 fL (80.0-100.0); MEAN PLATELET VOLUME 8.8 fL (7.4-11.0); NEUTROPHILS % (AUTO) 43.8 % (42.0-75.0); RED BLOOD COUNT 4.59 X10^6/uL (3.5-5.4); RED CELL DISTRIBUTION WIDTH 13.2 % (11.6-16.5); WHITE BLOOD COUNT 4.4 X10^3/uL (3.6-10.0)
[2023-12-27 06:27] LABS: ALBUMIN 3.6 g/dL (3.4-5.0); MAGNESIUM 2.6 mg/dL (2.0-2.9)
[2023-12-27 06:41] LABS: ALANINE AMINOTRANSFERASE 28 Units/L (12-78); ALKALINE PHOSPHATASE 67 Units/L (46-116); ASPARTATE AMINO TRANSFERASE 29 Units/L (15-37)
[2023-12-27 09:16] VITALS: BP 109/62; PULSE 84; RESP 19; TEMP 97.6; O2SAT 96
== END 2023-12-27 10:10 | disposition home or self-care (01) ==
LOC: MED/SURG
PROVIDERS: ADMIT Surgery; ATTEND Surgery